=== PATIENT | female | born 1975 | race Caucasian/White ===

== ENCOUNTER 2024-12-02 06:16 | Inpatient (IN) | payer BC, OTHER ==
[2024-12-02] VITALS (62 sets, daily range): BP systolic 86–127; BP diastolic 37–72; PULSE 72–129; RESP 9–29; TEMP 97–98.2; O2SAT 92–100
[~2024-12-02] VITALS: Ht 172.7 cm; Wt 139.0 kg
[2024-12-02] MEDS: ROCURONIUM 10MG/ML 10ML VIAL IV ONE ×3 (06:25→13:30)
[2024-12-02] MEDS: ETOMIDATE (2MG/ML) 20ML VIAL IV ONE (06:25)
[2024-12-02] MEDS: MIDAZOLAM DRIP 50 mg/50mL 50 ML IV SCH (06:30)
[2024-12-02] MEDS: fentaNYL Drip 2500mCg/250mlNS 250 ML IV SCH (06:30)
[2024-12-02] MEDS: PROPOFOL 100 ML IV SCH (06:30)
--- NOTE | 2024-12-02 06:37 | ED.PDOC ---
SOB-HPI HPI Comments This is a 49 year old female BIBA presenting to the ED with chief complaint of SOB. EMS reports patient called 911 due to experiencing severe SOB this morning. EMS relays that the patient had an O2 saturation of 70% on RA, however, patient denied being put on CPAP due to feeling claustrophobic. Patient unable to answer questions at this time due to her SOB. No further history obtained. Chief Complaint: Shortness of Breath Time Seen by MD: 06:34 Reviewed notes: Nurses Notes, Cosmetics Supervisor Notes, Medications, Allergies Information Source: Emergency Med Personnel Mode of Arrival: EMS Severity: Severe Timing: Hours Duration: Since onset Context: At Rest PE Risk Factors: None History of: None Prehospital treatment: Oxygen Modifying Factors: Nothing Past Medical History PAST MEDICAL HISTORY: Denies Surgical History: Denies all surgeries BIOSTATISTICS MANAGER History: No Pertinent BIOSTATISTICS MANAGER History Family History Family History: Reviewed,noncontributory to illness Social History Smoker: Non-Smoker Alcohol: Denies ETOH Use Drugs: Denies Drug Use Lives In: Home Constitutional: denies: chills, diaphoresis, fatigue, fever, malaise, sweats, weakness, others EENTM: denies: blurred vision, double vision, ear bleeding, ear discharge, ear drainage, ear pain, ear ringing, eye pain, eye redness, hearing loss, mouth pain, mouth swelling, nasal discharge, nose bleeding, nose congestion, nose pain, photophobia, tearing, throat pain, throat swelling, voice changes, others Respiratory: reports: shortness of breath; denies: cough, hemoptysis, orthopnea, SOB at rest, SOB with excertion, stridor, wheezing, others Cardiovascular: denies: chest pain, dizzy spells, diaphoresis, Dyspnea on exertion, edema, irregular heart beat, left arm pain, lightheadedness, palpitations, PND, syncope, others Gastrointestinal: denies: abdomen distended, abdominal pain, blood streaked bowels, constipated, diarrhea, dysphagia, difficulty swallowing, hematemesis, melena, nausea, poor appetite, poor fluid intake, rectal bleeding, rectal pain, vomiting, others Genitourinary: denies: abnormal vagina bleeding, burning, dyspareunia, dysuria, flank pain, frequency, hematuria, incontinence, pain, , vagina discharge, urgency, others Neurological: denies: dizziness, fainting, headache, left sided numbness, left sided weakness, numbness, paresthesia, pre-existing deficit, right sided numbness, right sided weakness, seizure, speech problems, tingling, tremors, weakness, others Musculoskeletal: denies: back pain, gout, joint pain, joint swelling, muscle pain, muscle stiffness, neck pain, others Integumetry: denies: bruises, change in color, change in hair/nails, dryness, laceration, lesions, lumps, rash, wounds, others Allergic/Immunocompromised: denies: Difficulty Healing, Frequent Infections, Hives, Itching, others Hematologic/Lymphatic: denies: anemia, blood clots, easy bleeding, easy bruising, swollen glands, others Endocrine: denies: excessive hunger, excessive sweating, excessive thirst, excessive urination, flushing, intolerance to cold, intolerance to heat, unexplained weight gain, unexplained weight loss, others Psychiatric: denies: anxiety, bipolar disorder, depression, hopeless, panic disorder, schizophrenia, sleepless, suicidal, others All Other Systems: Reviewed and Negative Physical Exam General Appearance: No Apparent Distress, Obese HEENT: Normal ENT Inspection, Pharynx Normal, TMs Normal Neck: Full Range of Motion, Non-Tender, Normal, Normal Inspection Respiratory: Chest Non-Tender, Lungs Clear, No Accessory Muscle Use, Other (Tachypneic, gasping for air, no movement of air noted.) Cardiovascular: No Edema, No JVD, No Murmur, No Gallop, Normal Peripheral Pulses, Tachycardia Breast Exam: Deferred Gastrointestinal: No Organomegaly, Non Tender, No Pulsatile Mass, Normal Bowel Sounds, Soft Genitalia: Deferred Pelvic: Deferred Rectal: Deferred Extremities: No calf tenderness, Normal capillary refill, Normal inspection, Normal range of motion, Non-tender, No pedal edema Musculoskeletal : Apperance: Normal Neurologic: Alert, groundman II-XII nml as Tested, No Motor Deficits, Normal Affect, Normal Mood, No Sensory Deficits Cerebellar Function: Normal Reflexes: Normal Skin: Dry, Normal Color, Warm Lymphatic: No Adenopathy Was a procedure done? Was a procedure done?: Yes Sedation Sedation?: Yes Informed consent obtained: Yes Sedation start time: 06:25 Sedation end time: 06:30 Sedation total time: 5 minutes Central Line Recorder of insertion practice: Cork Wirer Occupation of stick inserter: Attending Physician Indication: CVP monitoring, Suspected infection Room prepared for procedure: Yes Cork Wirer performed hand hygien: Yes Maximal sterile barrier precau: Mask/Eye shield, Sterile gown, Cap, Sterlie gloves, Large sterlie drape Skin Preparation: Chlorhexidine gluconate Skin preparation completely dr: Yes Insertion site: Right, Femoral Central line catheter type: [id number] dialysis Number of lumens: 3 Central line exchanged over a: Yes Antiseptic ointment applied to: Yes Post Assessment: Chest X-Ray, Proper placement Informed consent obtained: Yes Risks/benefits/alt described: Yes Intubation Indication: Respiratory Insufficiency, Airway Protection Prep: Preoxygenation Pretreated with: Sedation Intubation Approach: Orotracheal (@24 lip line) Intubation size: cm (8) Informed consent obtained: Yes Risks/benefits/alt described: Yes Notes 20mg of Etomidate and 100mg of Rocuronium Differential Dx Differential Diagnosis: Pneumonia, Pulmonary Embolism X-Ray, Labs, Meds, VS Vital Signs Date Time Temp Pulse Resp B/P (MAP) Pulse Ox O2 Delivery O2 Flow Rate FiO2 12/02/24 10:00 93 24 117/63 (81) 98 12/02/24 10:00 117/63 12/02/24 10:00 117/63 12/02/24 10:00 117/63 12/02/24 10:00 117/63 12/02/24 09:43 94 24 105/61 (76) 96 50 12/02/24 09:30 97.9 101 20 104/54 (71) 98 97.9 12/02/24 09:20 95/51 12/02/24 09:00 102/51 12/02/24 09:00 102/51 12/02/24 09:00 102/51 12/02/24 09:00 102/51 12/02/24 09:00 106 20 102/51 (68) 97 12/02/24 08:34 115 24 90/54 (66) 98 50 12/02/24 08:32 115 12/02/24 08:30 115 20 102/48 (66) 98 12/02/24 08:00 124 12/02/24 08:00 162/77 12/02/24 08:00 162/77 12/02/24 08:00 162/77 12/02/24 08:00 124 20 162/77 (105) 99 12/02/24 07:45 129 20 98 Mechanical Ventilator+ 80 80 12/02/24 07:45 193/96 12/02/24 07:45 193/96 12/02/24 07:45 193/96 12/02/24 07:45 98.0 129 20 193/96 (128) 98 98.0 12/02/24 07:32 128 12/02/24 06:30 216/118 12/02/24 06:30 216/118 12/02/24 06:30 216/118 12/02/24 06:25 130 20 160/105 (123) 96 100 12/02/24 06:25 216/118 12/02/24 06:25 97.0 143 21 216/118 94 97.0 12/02/24 06:25 142 Lab Test 12/02/24 09:51 12/02/24 09:30 12/02/24 08:15 12/02/24 07:33 Range/Units Troponin I High Sensitivity 279 *H 39 *H </=34 ng/L Blood Gas Specimen Type Arterial Arterial Blood Gas Sample Site Right radial Right radial Blood Gas Patient Temperature 37.0 37.0 Arterial Blood Date Drawn [id number] Arterial Blood pH 7.262 L 7.188 *L 7.350-7.450 Arterial Blood Partial Pressure CO2 49.4 H 60.4 *H 32.0-45.0 mmHg Arterial Blood Partial Pressure O2 108.2 H 305.1 *H 83.0-108.0 mmHg Arterial Blood HCO3 21.8 22.4 21.0-28.0 mmol/L Arterial Blood Oxygen Saturation 97.7 99.6 H 94.0-98.0 % Arterial Blood Base Excess -5.6 L -6.8 L -2.0-3.0 mmol/L Arterial Blood Oxyhemoglobin 96.2 98.4 H 94.0-98.0 % Arterial Blood Carboxyhemoglobin 0.9 0.5 0.5-1.5 % Arterial Blood Methemoglobin 0.6 0.7 0.0-1.5 % Ranjith Test Modified Modified Blood Gas Total Hemoglobin 15.10 15.40 12.0-16.0 g/dL Blood Gas Set Respiration Rate 24.0 20.0 Blood Gas Modality Vent - ac Vent - ac FiO2 % 50.0 100.0 Blood Gas Tidal Volume 500.0 500.0 Blood Gas PEEP or CPAP 15.0 15.0 Blood Gas Critical Value Read Back Yes Blood Gas Notified Whom Julissa garcia md Blood Gas Notified Time [id number] Blood Gas Notified By lakeisha Massey welding machine operator gas Test 12/02/24 07:12 12/02/24 07:02 12/02/24 06:30 Range/Units Urine Color Light-yellow Yellow Urine Clarity Clear Clear Urine pH 5.0 5.0-9.0 Urine Specific [place] 1.015 1.001-1.035 Urine Protein Negative Negative Urine Ketones Negative Negative Urine Blood Negative Negative /uL Urine Nitrite Negative Negative Urine Bilirubin Negative Negative Urine Urobilinogen Normal Negative mg/dL Urine Leukocyte Esterase Negative Negative /uL Urine RBC 1 0 - 4 /hpf Urine Microscopic WBC 3 0-5 /HPF Urine Squamous Epithelial Cells Few <5 /hpf Urine Bacteria None seen None Seen /hpf Urine Mucus Few None Seen Urine Glucose Normal Normal mg/dL Urine Opiates Screen Pending Urine Fentanyl Screen Pending Urine Barbiturates Screen Pending Urine Phencyclidine Screen Pending Urine Amphetamines Screen Pending Urine Benzodiazepines Screen Pending Urine Cocaine Screen Pending Urine Cannabinoids Screen Pending White Blood Count 19.8 H 4.4-10.8 10^3/uL Red Blood Count 4.84 4.0-5.20 10^6/uL Hemoglobin 15.0 12.2-16.2 g/dL Hematocrit 44.8 36.0-46.0 % Mean Corpuscular Volume 92.6 80.0-100.0 fL Mean Corpuscular Hemoglobin 31.0 28.0-32.0 pg Mean Corpuscular Hemoglobin Concent 33.4 32.0-36.0 g/dL Red Cell Distribution Width 14.0 11.8-14.3 % Platelet Count 278 140-450 10^3/uL Mean Platelet Volume 7.5 6.9-10.8 fL Neutrophils (%) (Auto) 41.8 37.0-80.0 % Lymphocytes (%) (Auto) 42.6 10.0-50.0 % Monocytes (%) (Auto) 8.7 0.0-12.0 % Eosinophils (%) (Auto) 6.3 0.0-7.0 % Basophils (%) (Auto) 0.6 0.0-2.0 % Neutrophils # (Auto) 8.3 1.6-8.6 10 ^3/uL Lymphocytes # (Auto) 8.4 H 0.4-5.4 10 ^3/uL Monocytes # (Auto) 1.7 H 0-1.3 10 ^3/uL Eosinophils # (Auto) 1.3 H 0-0.8 10 ^3/uL Basophils # (Auto) 0.1 0-0.2 10 ^3/uL Nucleated Red Blood Cells 0.1 % Sodium Level 142 136-145 mmol/L Potassium Level 4.9 3.5-5.1 mmol/L Chloride Level 108 H 98-107 mmol/L Carbon Dioxide Level 23 20-31 mmol/L Anion Gap 11 5-15 Blood Urea Nitrogen 18 9-23 mg/dL Creatinine 1.16 H 0.550-1.02 mg/dL Glomerular Filtration Rate Calc 57 >90 mL/min BUN/Creatinine Ratio 15.5 10.0-20.0 Serum Glucose 126 H 74-106 mg/dL Lactic Acid Level 1.5 0.4-2.0 mmol/L Calcium Level 8.5 L 8.7-10.4 mg/dL Total Bilirubin 0.4 0.2-1.0 mg/dL Aspartate Amino Transferase (AST) 40 13-40 U/L Alanine Aminotransferase (ALT) 45 H 7-40 U/L Alkaline Phosphatase 108 46-116 U/L Troponin I High Sensitivity 5 </=34 ng/L B-Type Natriuretic Peptide 25.79 0-100 pg/mL Total Protein 6.8 5.7-8.2 g/dL Albumin 4.2 3.2-4.8 g/dL Microbiology Date/Time Source Procedure Growth Status 12/02/24 06:30 Blood Blood Culture - Preliminary Resulted 12/02/24 06:15 Blood Blood Culture - Preliminary Resulted Current Medications Medications (Trade) Dose Ordered Sig/Aren Route Start Time Stop Time Status Last Admin Rocuronium [place] 100 mg ONCE ONCE IV 12/02/24 06:45 12/02/24 06:46 DC 12/02/24 06:25 Etomidate 20 mg ONCE ONCE IV 12/02/24 06:45 12/02/24 06:46 DC 12/02/24 06:25 Propofol 100 ml @ 4.41 mls/hr [id number] IV 12/02/24 06:45 12/03/24 05:13 Midazolam HCl 50 ml @ 1 mls/hr Q24H IV 12/02/24 06:45 12/03/24 06:03 Fentanyl Citrate 250 ml @ 2.5 mls/hr Q24H IV 12/02/24 06:45 12/03/24 02:48 Norepinephrine Bitartrate 250 ml @ 3.75 mls/hr Q24H IV 12/02/24 06:45 12/02/24 09:00 Time of 1ST Reevaluation: 07:33 Reevaluation 1ST: Improved Patient Education/Counseling: Diagnosis, Treatment Family Education/Counseling: No Family Present SEPSIS Sepsis Screen Physician Orders Chest Portable (12/02/24 06:29) Blood Culture (12/02/24 06:29) Propofol (Diprivan) (12/02/24 06:45) Midazolam Drip 50 Mg/50ml (Versed Drip 5 (12/02/24 06:45) Fentanyl Drip 2500mcg/250mlns (12/02/24 06:45) Norepinephrine 8 Mg/250ml Kit (Levophed) (12/02/24 06:45) Ventilator Orders (12/02/24 06:25) Respiratory Culture W/ Gs (12/02/24 06:25) Abg W/ Co-Ox (12/02/24 07:30) Communication Order (12/02/24 06:50) Respiratory Misc. Order (12/02/24 06:30) Ventilator Orders (12/02/24 08:30) Abg W/ Co-Ox (12/02/24 09:30) Vital Signs Date Time Temp Pulse Resp B/P (MAP) Pulse Ox O2 Delivery O2 Flow Rate FiO2 12/02/24 10:00 93 24 117/63 (81) 98 12/02/24 10:00 117/63 12/02/24 10:00 117/63 12/02/24 10:00 117/63 12/02/24 10:00 117/63 12/02/24 09:43 94 24 105/61 (76) 96 50 12/02/24 09:30 97.9 101 20 104/54 (71) 98 97.9 12/02/24 09:20 95/51 12/02/24 09:00 102/51 12/02/24 09:00 102/51 12/02/24 09:00 102/51 12/02/24 09:00 102/51 12/02/24 09:00 106 20 102/51 (68) 97 12/02/24 08:34 115 24 90/54 (66) 98 50 12/02/24 08:32 115 12/02/24 08:30 115 20 102/48 (66) 98 12/02/24 08:00 124 12/02/24 08:00 162/77 12/02/24 08:00 162/77 12/02/24 08:00 162/77 12/02/24 08:00 124 20 162/77 (105) 99 12/02/24 07:45 129 20 98 Mechanical Ventilator+ 80 80 12/02/24 07:45 193/96 12/02/24 07:45 193/96 12/02/24 07:45 193/96 12/02/24 07:45 98.0 129 20 193/96 (128) 98 98.0 12/02/24 07:32 128 12/02/24 06:30 216/118 12/02/24 06:30 216/118 12/02/24 06:30 216/118 12/02/24 06:25 130 20 160/105 (123) 96 100 12/02/24 06:25 216/118 12/02/24 06:25 97.0 143 21 216/118 94 97.0 12/02/24 06:25 142 Laboratory Tests Test 12/02/24 06:30 Lactic Acid Level 1.5 mmol/L (0.4-2.0) White Blood Count 19.8 10^3/uL (4.4-10.8) H Departure 1 Departure Time of Disposition: 06:39 (Patient presented in acute respiratory distress. Patient was emergently intubated and central line placed. Patient will be admitted to the ICU.) Impression: Primary Impression: Acute hypoxic respiratory failure Disposition: ADMITTED INPATIENT Admit to: ICU Condition: Critical Critical Care Note Critical Care Time?: Yes Critical care comment: Acute respiratory failure Authorized and Performed by: Luther Garcia MD Total critical care time: Approximately 126 minutes Due to a high probability of clinically significant, life threatening deterioration, the patient required my highest level of preparedness to in [facility] emergently and I personally spent this critical care time directly and personally managing the patient. This critical care time included obtaining a history; examining the patient; pulse oximetry; ordering and review of studies; arranging urgent treatment with development of a management plan; evaluation of patient's response to treatment; frequent reassessment; and, discussions with other providers. This critical care time was performed to assess and manage the high probability of imminent, life-threatening deterioration that could result in multi-organ failure. It was exclusive of separately billable procedures and treating other patients and teaching time. Please see my other sections and the rest of the note for further information on patient assessment and treatment. Stability Stability form required: No Heart Score Heart Score: Heart Score Response (Comments) Value History N/A 0 EKG N/A 0 Age N/A 0 Risk Factors N/A 0 Troponin N/A 0 Total 0 I personally scribed for LUTHER GARCIA MD ([email or web address]) on 12/02/24 at 06:37. E lectronically submitted by Bong Deutsch ([email or web address]). LUTHER GARCIA MD Dec 02, 2024 06:37
[2024-12-02 06:45] LABS: Hematocrit 44.8 % (36.0-46.0); Hemoglobin 15.0 g/dL (12.2-16.2); Mean Corpuscular Hemoglobin 31.0 pg (28.0-32.0); Mean Corpuscular Volume 92.6 fL (80.0-100.0); Nucleated Red Blood Cells % 0.1 %
[2024-12-02] MEDS: PROPOFOL 100 ML IV ONE (06:55)
[2024-12-02] MEDS: MIDAZOLAM DRIP 50 mg/50mL 50 ML IV ONE (06:58)
[2024-12-02] MEDS: fentaNYL Drip 2500mCg/250mlNS 250 ML IV ONE (06:58)
[2024-12-02 07:14] LABS: Albumin 4.2 g/dL (3.2-4.8); Alkaline Phosphatase 108 U/L (46-116); Anion Gap 11 (5-15); BUN/Creatinine Ratio 15.5 (10.0-20.0); Blood Urea Nitrogen 18 mg/dL (9-23); Carbon Dioxide 23 mmol/L (20-31); Potassium 4.9 mmol/L (3.5-5.1); Sodium 142 mmol/L (136-145); Total Protein 6.8 g/dL (5.7-8.2)
[2024-12-02 07:15] LABS: Bilirubin, Total 0.4 mg/dL (0.2-1.0)
[2024-12-02 07:16] LABS: Alanine Aminotransferase 45 U/L (7-40); Calcium 8.5 mg/dL (8.7-10.4); Chloride 108 mmol/L (98-107); Glucose 126 mg/dL (74-106)
--- NOTE | 2024-12-02 07:42 | DVH ---
CHEST RADIOGRAPH Indication: weakness Technique: Single frontal view of the chest was obtained COMPARISON: XR CHEST 1 VIEW on DOS: 12/02/22, XR CHEST 1 VIEW on DOS: 09/26/22 FINDINGS: Lines and Tubes: Endotracheal tube in the right mainstem bronchus. Lungs: Right mid lung airspace disease. Pleura: No effusion. No pneumothorax. Cardiomediastinal contours: Unremarkable Bones: Unremarkable IMPRESSION: Recommend retraction of endotracheal tube by 3 cm.
--- NOTE | 2024-12-02 07:50 | ECG ---
[facility] Test Date: 2024-12-02 Test Time: 07:32:43 Pat Name: KARELY CONNOLLY Department: [facility] ED Patient ID: [id number] Room: 0264 Gender: F Organizational Development Director: LORI : 1975 Requested By: LUTHER NOLEN Order Number: [id number] Reading MD: Varghese Roberts Measurements Intervals [place] Rate: 128 P: 78 VT: 143 QRS: 32 QRSD: 86 T: 85 QT: 296 QTc: 432 Interpretive Statements Sinus tachycardia Ventricular premature complex Anteroseptal infarct, old Baseline wander in lead(s) V4 Electronically Signed On 12-03-2024 17:02:29 PDT by Varghese Roberts Please click the below link to view image of tracing.
[2024-12-02 08:30] LABS: Base Excess -6.8 mmol/L (-2.0-3.0)
[2024-12-02] MEDS: NOREPINEPHRINE 8 MG/250ML KIT 250 ML IV SCH (09:00)
[2024-12-02 09:10] LABS: Urine Protein, UAD Negative (Negative)
[2024-12-02 09:42] LABS: Base Excess -5.6 mmol/L (-2.0-3.0)
[2024-12-02] MEDS ORDERED: NITROGLYCERIN 0.4 MG SL TAB SL PRN (10:15)
[2024-12-02] MEDS ORDERED: HYDROcodone-ACET 5/325MG TAB PO PRN (10:15)
[2024-12-02] MEDS ORDERED: DOCUSATE SOD 100 MG CAP PO PRN (10:15)
[2024-12-02] MEDS ORDERED: MORPHINE SULFATE INJ 2 MG/ml SYRG IV PRN (10:15)
--- NOTE | 2024-12-02 10:32 | DVHHP2 ---
History of Present Illness Reason for Visit: Shortness of breath History of Present Illness Laure Glover is a 49-year-old female with past medical history of asthma and obesity, who was brought in by EMS for shortness of breath. When patient arrived to ER she was in respiratory distress. Not able to answer questions, and was int ubated shortly after arrival. A person claiming to be her daughter called and spoke with the ER nurse prior to my assessment. She was asked to come to the hospital. Pulmonary: Asthma Review of Systems Review of Systems Unable to obtain Respiratory: Shortness of breath Allergies: Coded Allergies: UNOBTAINABLE (Unverified , 12/02/24) Medications Current Medications Medications Dose Ordered Sig/Aren Route Start Time Stop Time Status Last Admin Dose Admin Propofol 100 ml @ 4.41 mls/hr [id number] IV 12/02/24 06:45 12/02/24 06:30 17.64 MLS/HR Midazolam HCl 50 ml @ 1 mls/hr Q24H IV 12/02/24 06:45 12/02/24 06:30 2 MLS/HR Fentanyl Citrate 250 ml @ 2.5 mls/hr Q24H IV 12/02/24 06:45 12/02/24 06:30 2.5 MLS/HR Norepinephrine Bitartrate 250 ml @ 3.75 mls/hr Q24H IV 12/02/24 06:45 Sodium Chloride 1,000 ml @ 100 mls/hr Q10H IV 12/02/24 10:15 UNV Acetaminophen/ Hydrocodone Bitart 1 tab Q4HP PRN PO 12/02/24 10:15 UNV Ondansetron HCl 4 mg Q4HP PRN IV 12/02/24 10:15 UNV Docusate Sodium 100 mg BIDPRN PRN PO 12/02/24 10:15 UNV Enoxaparin Sodium 40 mg DAILY SC 12/03/24 10:00 UNV Acetaminophen 650 mg Q6HP PRN PO 12/02/24 10:15 UNV Nitroglycerin 0.4 mg Q5MINP PRN SL 12/02/24 10:15 UNV Morphine Sulfate 2 mg Q30M PRN IV 12/02/24 10:15 UNV Albuterol 2.5 mg Q6HWA NEB 12/02/24 12:00 UNV Ipratropium [place] 0.5 mg Q6HWA NEB 12/02/24 12:00 UNV Methylprednisolone Sodium Succinate 40 mg BID IV 12/02/24 22:00 UNV Exam Vital Signs Vital Signs Date Time Temp Pulse Resp B/P (MAP) Pulse Ox O2 Delivery O2 Flow Rate FiO2 12/02/24 09:43 94 24 105/61 (76) 96 50 12/02/24 06:25 97.0 97.0 General Appearance: Other (sedated, morbid obesity) HEENT: Atraumatic, PERRLA Respiratory: Other (Intubated, Diminished) Cardiovascular: Normal S1, Normal S2, Other (ST-SR) Abdominal: Normal bowel sounds, Soft, No tenderness Extremities: No clubbing, No cyanosis, No edema, Normal pulses Skin: No rashes, No breakdown, No significant lesion Neuro: Other (sedated and intubated) Labs/Xrays Labs Test 12/02/24 09:30 12/02/24 08:15 12/02/24 07:33 12/02/24 07:12 Range/Units Blood Gas Specimen Type Arterial Blood Gas Sample Site Right radial Blood Gas Patient Temperature 37.0 Arterial Blood Date Drawn [id number] Arterial Blood pH 7.262 L 7.350-7.450 Arterial Blood Partial Pressure CO2 49.4 H 32.0-45.0 mmHg Arterial Blood Partial Pressure O2 108.2 H 83.0-108.0 mmHg Arterial Blood HCO3 21.8 21.0-28.0 mmol/L Arterial Blood Oxygen Saturation 97.7 94.0-98.0 % Arterial Blood Base Excess -5.6 L -2.0-3.0 mmol/L Arterial Blood Oxyhemoglobin 96.2 94.0-98.0 % Arterial Blood Carboxyhemoglobin 0.9 0.5-1.5 % Arterial Blood Methemoglobin 0.6 0.0-1.5 % Ranjith Test Modified Blood Gas Total Hemoglobin 15.10 12.0-16.0 g/dL Blood Gas Set Respiration Rate 24.0 Blood Gas Modality Vent - ac FiO2 % 50.0 Blood Gas Tidal Volume 500.0 Blood Gas PEEP or CPAP 15.0 Blood Gas Critical Value Read Back Yes Blood Gas Notified Whom Julissa garcia md Blood Gas Notified Time [id number] Blood Gas Notified By Massey, j cook dinner Troponin I High Sensitivity 39 *H </=34 ng/L Urine Color Light-yellow Yellow Urine Clarity Clear Clear Urine pH 5.0 5.0-9.0 Urine Specific [place] 1.015 1.001-1.035 Urine Protein Negative Negative Urine Ketones Negative Negative Urine Blood Negative Negative /uL Urine Nitrite Negative Negative Urine Bilirubin Negative Negative Urine Urobilinogen Normal Negative mg/dL Urine Leukocyte Esterase Negative Negative /uL Urine RBC 1 0 - 4 /hpf Urine Microscopic WBC 3 0-5 /HPF Urine Squamous Epithelial Cells Few <5 /hpf Urine Bacteria None seen None Seen /hpf Urine Mucus Few None Seen Urine Glucose Normal Normal mg/dL Test 12/02/24 06:30 Range/Units White Blood Count 19.8 H 4.4-10.8 10^3/uL Red Blood Count 4.84 4.0-5.20 10^6/uL Hemoglobin 15.0 12.2-16.2 g/dL Hematocrit 44.8 36.0-46.0 % Mean Corpuscular Volume 92.6 80.0-100.0 fL Mean Corpuscular Hemoglobin 31.0 28.0-32.0 pg Mean Corpuscular Hemoglobin Concent 33.4 32.0-36.0 g/dL Red Cell Distribution Width 14.0 11.8-14.3 % Platelet Count 278 140-450 10^3/uL Mean Platelet Volume 7.5 6.9-10.8 fL Neutrophils (%) (Auto) 41.8 37.0-80.0 % Lymphocytes (%) (Auto) 42.6 10.0-50.0 % Monocytes (%) (Auto) 8.7 0.0-12.0 % Eosinophils (%) (Auto) 6.3 0.0-7.0 % Basophils (%) (Auto) 0.6 0.0-2.0 % Neutrophils # (Auto) 8.3 1.6-8.6 10 ^3/uL Lymphocytes # (Auto) 8.4 H 0.4-5.4 10 ^3/uL Monocytes # (Auto) 1.7 H 0-1.3 10 ^3/uL Eosinophils # (Auto) 1.3 H 0-0.8 10 ^3/uL Basophils # (Auto) 0.1 0-0.2 10 ^3/uL Nucleated Red Blood Cells 0.1 % Sodium Level 142 136-145 mmol/L Potassium Level 4.9 3.5-5.1 mmol/L Chloride Level 108 H 98-107 mmol/L Carbon Dioxide Level 23 20-31 mmol/L Anion Gap 11 5-15 Blood Urea Nitrogen 18 9-23 mg/dL Creatinine 1.16 H 0.550-1.02 mg/dL Glomerular Filtration Rate Calc 57 >90 mL/min BUN/Creatinine Ratio 15.5 10.0-20.0 Serum Glucose 126 H 74-106 mg/dL Lactic Acid Level 1.5 0.4-2.0 mmol/L Calcium Level 8.5 L 8.7-10.4 mg/dL Total Bilirubin 0.4 0.2-1.0 mg/dL Aspartate Amino Transferase (AST) 40 13-40 U/L Alanine Aminotransferase (ALT) 45 H 7-40 U/L Alkaline Phosphatase 108 46-116 U/L B-Type Natriuretic Peptide 25.79 0-100 pg/mL Total Protein 6.8 5.7-8.2 g/dL Albumin 4.2 3.2-4.8 g/dL CHEST RADIOGRAPH FINDINGS: Lines and Tubes: Endotracheal tube in the right mainstem bronchus. Lungs: Right mid lung airspace disease. Pleura: No effusion. No pneumothorax. Cardiomediastinal contours: Unremarkable Bones: Unremarkable IMPRESSION: Recommend retraction of endotracheal tube by 3 cm. SEPSIS Sepsis Screen Date sepsis recognized/suspect: Dec 02, 2024 Time Sepsis recognized/suspect: 633 Recent Procedure: No On Antibiotic Therapy: No Respiratory Rate >20: Yes Heart Rate >90: Yes Temp<36 C (96.8 F) or >38.3 C: No SBP <90 or MAP <65 mmHG: No New Acute Mental Status Change: No Is the patient on CPAP, BIPAP,: Yes Physician Orders Chest Portable (12/02/24 06:29) Blood Culture (12/02/24 06:29) Troponin-I Hs (12/02/24 09:29) Electrocardigram (12/02/24 07:29) Electrocardigram (12/02/24 09:29) Propofol (Diprivan) (12/02/24 06:45) Midazolam Drip 50 Mg/50ml (Versed Drip 5 (12/02/24 06:45) Fentanyl Drip 2500mcg/250mlns (12/02/24 06:45) Rass Sedation Scale Q1HR (12/02/24 06:38) Norepinephrine 8 Mg/250ml Kit (Levophed) (12/02/24 06:45) Ventilator Orders (12/02/24 06:25) Respiratory Culture W/ Gs (12/02/24 06:25) Abg W/ Co-Ox (12/02/24 07:30) Communication Order (12/02/24 06:50) Respiratory Misc. Order (12/02/24 06:30) Cefepime 2gm/50ml Ns (Maxipime 2gm/50ml) (12/02/24 07:15) Ventilator Orders (12/02/24 08:30) Abg W/ Co-Ox (12/02/24 09:30) Admit (12/02/24 10:06) Code Status (12/02/24 10:06) Sodium Chloride 0.9% (12/02/24 10:15) Hydrocodone-Acet 5/325mg Tab ([place] 5/32 (12/02/24 10:15) Ondansetron Hcl (Zofran) (12/02/24 10:15) Docusate Sodium Capsule (Colace Capsule) (12/02/24 10:15) Enoxaparin Sodium (Lovenox) (12/03/24 10:00) Complete Blood Count (12/03/24 04:00) Comprehensive Metabolic Panel (12/03/24 04:00) Npo (Nothing By Mouth) Diet (12/02/24 Lunch) Condition: Critical (12/02/24 10:06) Acetaminophen Tablet (Tylenol Tablet) (12/02/24 10:15) Nitroglycerin Sublingual (Ntrostat Subli (12/02/24 10:15) Morphine Sulfate Injection (12/02/24 10:15) Stat Ekg For Chest Pain (12/02/24 10:06) Notify Md Of Changes From Base (12/02/24 10:06) Steam Turbine Operator For 24 Hours (12/02/24 10:06) Emergency Dysrhythmia Protocol (12/02/24 10:06) Rhythm Strips Once Every Shift (12/02/24 10:06) Oxygen By Nasal Cannula (12/02/24 10:06) Albuterol Medneb (Ventolin Medneb) (12/02/24 12:00) Ipratropium Medneb (Atrovent Medneb) (12/02/24 12:00) Methylprednisolone Sod Succ (Solu Medrol (12/02/24 22:00) Vital Signs Date Time Temp Pulse Resp B/P (MAP) Pulse Ox O2 Delivery O2 Flow Rate FiO2 12/02/24 09:43 94 24 105/61 (76) 96 50 12/02/24 08:34 115 24 90/54 (66) 98 50 12/02/24 08:32 115 12/02/24 08:00 124 12/02/24 07:32 128 12/02/24 06:30 216/118 12/02/24 06:30 216/118 12/02/24 06:30 216/118 12/02/24 06:25 130 20 160/105 (123) 96 100 12/02/24 06:25 216/118 12/02/24 06:25 97.0 143 21 216/118 94 97.0 12/02/24 06:25 142 Laboratory Tests Test 12/02/24 06:30 Lactic Acid Level 1.5 mmol/L (0.4-2.0) White Blood Count 19.8 10^3/uL (4.4-10.8) H Medications Medications Dose Ordered Sig/Aren Route Start Time Stop Time Status Last Admin Dose Admin Etomidate 20 mg ONCE ONCE IV 12/02/24 06:45 12/02/24 06:46 DC 12/02/24 06:25 20 MG Fentanyl Citrate 250 ml @ 2.5 mls/hr Q24H IV 12/02/24 06:45 12/02/24 06:30 2.5 MLS/HR Midazolam HCl 50 ml @ 1 mls/hr Q24H IV 12/02/24 06:45 12/02/24 06:30 2 MLS/HR Propofol 100 ml @ 4.41 mls/hr [id number] IV 12/02/24 06:45 12/02/24 06:30 17.64 MLS/HR Rocuronium [place] 100 mg ONCE ONCE IV 12/02/24 06:45 12/02/24 06:46 DC 12/02/24 06:25 100 MG Assessment/Plan Assessment/Plan Assessment: Acute hypoxic respiratory failure, Lactic acidosis, Hyperglycemia, Morbid obesity, Asthma, Plan: Admit to ICU, IV antibiotics, IV steroids, Breathing treatments, Supplemental oxygen as needed, Mechanical ventilation support, NPO, A1c, UDS, Vasopressors as needed, There are no home medications in the system and no family to verify with, Plan discussed with: Patient My Orders Orders - CHRISTIANA DAWKINS W[employer]SEMBL[employer] Procedure Category Date Status Time Admit ADMIT 12/02/24 Transmitted 10:06 Code Status CODE 12/02/24 Transmitted 10:06 Sodium Chloride 0.9% PHA 12/02/24 Logged 10:15 Hydrocodone-Acet PHA 12/02/24 Logged 5/325mg Tab ([place] 10:15 Ondansetron Hcl PHA 12/02/24 Logged (Zofran) 10:15 Docusate Sodium PHA 12/02/24 Logged Capsule (Colace 10:15 Enoxaparin Sodium PHA 12/03/24 Logged (Lovenox) 10:00 Complete Blood Count LAB 12/03/24 Verified 04:00 Comprehensive LAB 12/03/24 Verified Metabolic Panel 04:00 Npo (Nothing By DIET 12/02/24 Transmitted Mouth) Diet Lunch Condition: Critical ZANDER 12/02/24 In Process 10:06 Acetaminophen Tablet PHA 12/02/24 Logged (Tylenol Tablet) 10:15 Nitroglycerin PHA 12/02/24 Logged Sublingual (Ntrostat 10:15 Morphine Sulfate PHA 12/02/24 Logged Injection 10:15 Stat Ekg For Chest [facility] 12/02/24 In Process Pain 10:06 Notify Of Changes [facility] 12/02/24 In Process From Base 10:06 Steam Turbine Operator For [facility] 12/02/24 In Process 24 Hours 10:06 Emergency Dysrhythmia [facility] 12/02/24 In Process Protocol 10:06 Rhythm Strips Once [facility] 12/02/24 In Process Every Shift 10:06 Oxygen By Nasal RT 12/02/24 Transmitted Cannula 10:06 Albuterol Medneb PHA 12/02/24 Logged (Ventolin Medneb) 12:00 Ipratropium Medneb PHA 12/02/24 Logged (Atrovent Medneb) 12:00 Methylprednisolone PHA 12/02/24 Logged Sod Succ (Solu Medrol 22:00 Date of Service: Dec 02, 2024 Billing Provider: CHRISTIANA DAWKINS Common Visit Codes: [id number] INP/OBS CARE (MOD) CHRISTIANA DAWKINS Dec 02, 2024 10:32
--- NOTE | 2024-12-02 10:52 | ECG ---
[facility] Test Date: 2024-12-02 Test Time: 10:51:33 Pat Name: KARELY CONNOLLY Department: [facility] ED Patient ID: [facility]-[id number] Room: 0264 Gender: F Esthetician Facialist: brandon : 1975 Requested By: LUTHER NOLEN Order Number: [id number] Reading MD: Varghese Roberts Measurements Intervals [place] Rate: 93 P: 81 ME: 143 QRS: 70 QRSD: 94 T: 74 QT: 344 QTc: 428 Interpretive Statements Sinus rhythm Electronically Signed On 12-03-2024 17:02:46 PDT by Varghese Roberts Please click the below link to view image of tracing.
[2024-12-02] MEDS ORDERED: AZITHROMYCIN 500MG/ 250ML 250 ML IV SCH (11:30)
[2024-12-02] MEDS: ALBUTEROL SULF 2.5 MG/0.5ML(0.5%) NEB SOLN NEB SCH (12:57)
[2024-12-02] MEDS: IPRATROPIUM BROM 0.5 MG/2.5ML INH SOL NEB SCH (12:57)
[2024-12-02] MEDS: ROCURONIUM BROMIDE 1,000 MG in D5W 5% 150 ML IV SCH (13:13)
[2024-12-02 14:25] LABS: Base Excess -6.6 mmol/L (-2.0-3.0)
[2024-12-02] MEDS ORDERED: VANCOMYCIN PER PHARMACY 0 MG IV SCH (15:00)
[2024-12-02] MEDS: SODIUM CHLORIDE 0.9% 1,000 ML IV SCH (15:40)
[2024-12-02] MEDS: AZITHROMYCIN 500MG/ 250ML 250 ML IV ONE (15:40)
[2024-12-02] MEDS: VANCOMYCIN 1GM/250ML KIT 250 ML IV ONE (18:50)
[2024-12-02] MEDS: VANCOMYCIN 1GM/250ML KIT 250 ML IV SCH (18:54)
--- NOTE | 2024-12-02 19:37 | ECG ---
[facility] Test Date: 2024-12-02 Test Time: 08:32:27 Pat Name: KARELY CONNOLLY Department: [facility] ED Patient ID: [facility]-[id number] Room: 0264 A Gender: F Track Patrol: LORI : 1975 Requested By: LUTHER NOLEN Order Number: [id number] Reading MD: Varghese Roberts Measurements Intervals [place] Rate: 115 P: 81 WV: 140 QRS: 53 QRSD: 96 T: 75 QT: 319 QTc: 442 Interpretive Statements Sinus tachycardia Low voltage, precordial leads Electronically Signed On 12-03-2024 17:02:31 PDT by Varghese Roberts Please click the below link to view image of tracing.
[2024-12-02] MEDS: methylPREDNISolone SOD SUCC 40 MG/ML VL IV SCH (21:20)
[2024-12-03] VITALS (123 sets, daily range): BP systolic 86–148; BP diastolic 25–75; PULSE 63–100; RESP 21–24; TEMP 97.7–97.8; O2SAT 86–100
[2024-12-03 05:53] LABS: Hematocrit 38.7 % (36.0-46.0); Hemoglobin 13.1 g/dL (12.2-16.2); Mean Corpuscular Hemoglobin 31.6 pg (28.0-32.0); Mean Corpuscular Volume 93.1 fL (80.0-100.0); Nucleated Red Blood Cells % 0.0 %
[2024-12-03] MEDS: AZITHROMYCIN 500MG/ 250ML 250 ML IV ONE (05:53)
[2024-12-03] MEDS: VANCOMYCIN 1GM/250ML KIT 250 ML IV SCH (05:53)
--- NOTE | 2024-12-03 05:57 | DVH ---
CHEST RADIOGRAPH Indication: MECHANICAL VENTILATION Technique: Single frontal view of the chest was obtained COMPARISON: XY CHEST PORTABLE on DOS: 12/02/24, XR CHEST 1 VIEW on DOS: 12/02/22, XR CHEST 1 VIEW on DOS: 09/26/22 FINDINGS: Lines and Tubes: Endotracheal tube and enteric catheter in satisfactory position Lungs: Congestion Pleura: No effusion. No pneumothorax. Cardiomediastinal contours: Unremarkable Bones: Unremarkable IMPRESSION: Lines and tubes in satisfactory position.
[2024-12-03 05:58] LABS: Albumin 3.7 g/dL (3.2-4.8); Alkaline Phosphatase 69 U/L (46-116); Anion Gap 10 (5-15); BUN/Creatinine Ratio 16.5 (10.0-20.0); Bilirubin, Total 0.3 mg/dL (0.2-1.0); Blood Urea Nitrogen 19 mg/dL (9-23); Carbon Dioxide 21 mmol/L (20-31); Magnesium 2.5 mg/dL (1.6-2.6); Potassium 4.6 mmol/L (3.5-5.1); Sodium 141 mmol/L (136-145); Total Protein 5.7 g/dL (5.7-8.2)
[2024-12-03 06:08] LABS: Alanine Aminotransferase 55 U/L (7-40); Calcium 8.5 mg/dL (8.7-10.4); Chloride 110 mmol/L (98-107); Glucose 154 mg/dL (74-106)
[2024-12-03] MEDS: VANCOMYCIN 1.25GM/250ML 250 ML IV SCH (06:32)
[2024-12-03] MEDS: VANCOMYCIN 1GM/250ML KIT 500 ML IV ONE (06:43)
[2024-12-03 06:53] LABS: Base Excess -4.9 mmol/L (-2.0-3.0)
[2024-12-03] MEDS: AZITHROMYCIN 500MG/ 250ML 250 ML IV SCH (08:52)
[2024-12-03] MEDS: ENOXAPARIN SOD 40 MG/0.4 ML SYRINGE SC SCH (08:53)
[2024-12-03] MEDS: SODIUM CHLORIDE 0.9% 1,000 ML IV SCH (11:45)
--- NOTE | 2024-12-03 11:50 | DVHPN2 ---
Subjective Chemically sedated Reviewed: Care Plan, H&P, Labs, Medications Changes from previous H/P or p: No Changes General: Per HPI Respiratory: Shortness of breath Objective Vitals Vital Signs Date Time Temp Pulse Resp B/P (MAP) Pulse Ox O2 Delivery O2 Flow Rate FiO2 12/03/24 11:00 121/69 12/03/24 10:21 100 Mechanical Ventilator+ 30 30 12/03/24 10:20 64 12/03/24 10:20 24 12/03/24 04:01 97.7 97.7 Intake/Output Intake and Output 12/03/24 07:00 Intake Total 4170.426 ml Output Total 2750 ml Balance 1420.426 ml Intake Oral 0 ml IV Total 4170.426 ml Output Urine Total 2750 ml # Bowel Movements 4 General Appearance: mild distress, Other (Chemically sedated) HEENT: Atraumatic, PERRLA Lungs: Clear to auscultation, Normal air movement, Other (Mechanical ventilation) Cardiovascular: Normal S1, Normal S2 Abdomen: Normal bowel sounds, Soft, No tenderness Genitourinary: No Apparent Abnormalities Musculoskeletal: Normal sensory function, Normal motor function Extremities: No clubbing, No cyanosis Skin: Dry, Intact Psych/Mental Status: Other (Unable to assess) Medications Current Medications Medications Dose Ordered Sig/Aren Route Start Time Stop Time Status Last Admin Dose Admin Propofol 100 ml @ 4.41 mls/hr [id number] IV 12/02/24 06:45 12/03/24 07:26 44.1 MLS/HR Midazolam HCl 50 ml @ 1 mls/hr Q24H IV 12/02/24 06:45 12/03/24 08:53 14 MLS/HR Fentanyl Citrate 250 ml @ 2.5 mls/hr Q24H IV 12/02/24 06:45 12/03/24 09:17 32.5 MLS/HR Norepinephrine Bitartrate 250 ml @ 3.75 mls/hr Q24H IV 12/02/24 06:45 12/02/24 09:00 3.75 MLS/HR Sodium Chloride 1,000 ml @ 100 mls/hr Q10H IV 12/02/24 10:15 12/03/24 04:21 100 MLS/HR Acetaminophen/ Hydrocodone Bitart 1 tab Q4HP PRN PO 12/02/24 10:15 Ondansetron HCl 4 mg Q4HP PRN IV 12/02/24 10:15 Docusate Sodium 100 mg BIDPRN PRN PO 12/02/24 10:15 Enoxaparin Sodium 40 mg DAILY SC 12/03/24 10:00 12/03/24 08:53 40 MG Acetaminophen 650 mg Q6HP PRN PO 12/02/24 10:15 Nitroglycerin 0.4 mg Q5MINP PRN SL 12/02/24 10:15 Morphine Sulfate 2 mg Q30M PRN IV 12/02/24 10:15 Albuterol 2.5 mg Q6HWA [facility] 12/02/24 12:00 12/03/24 05:50 2.5 MG Ipratropium [place] 0.5 mg Q6HWA [facility] 12/02/24 12:00 12/03/24 05:50 0.5 MG Methylprednisolone Sodium Succinate 40 mg BID IV 12/02/24 22:00 12/03/24 08:52 40 MG Rocuronium [place] 1000 mg/ Dextrose 250 ml @ 17.64 mls/ hr [id number] IV 12/02/24 12:45 12/02/24 13:13 17.64 MLS/HR Azithromycin 250 ml @ 125 mls/hr DAILY IV 12/03/24 10:00 12/03/24 08:52 125 MLS/HR Ceftriaxone Sodium 50 ml @ 100 mls/hr DAILY@09 IV 12/03/24 09:00 12/03/24 08:51 100 MLS/HR Vancomycin HCl 0 ml @ 0 mls/hr UD IV 12/02/24 15:00 Vancomycin HCl 250 ml @ 200 mls/hr Q12H IV 12/03/24 07:00 12/03/24 06:32 200 MLS/HR Laboratory Results Laboratory Tests 12/03/24 04:40 Chemistry Test 12/03/24 04:40 Albumin 3.7 g/dL (3.2-4.8) Calcium Level 8.5 mg/dL (8.7-10.4) L Magnesium Level 2.5 mg/dL (1.6-2.6) Total Protein 5.7 g/dL (5.7-8.2) LFT Test 12/03/24 04:40 Alanine Aminotransferase (ALT) 55 U/L (7-40) H Alkaline Phosphatase 69 U/L (46-116) Aspartate Amino Transferase (AST) 61 U/L (13-40) H Total Bilirubin 0.3 mg/dL (0.2-1.0) Urinalysis Test 12/02/24 07:12 Urine Color Light-yellow (Yellow) Urine Clarity Clear (Clear) Urine pH 5.0 (5.0-9.0) Urine Specific [place] 1.015 (1.001-1.035) Urine Protein Negative (Negative) Urine Ketones Negative (Negative) Urine Blood Negative /uL (Negative) Urine Nitrite Negative (Negative) Urine Bilirubin Negative (Negative) Urine Urobilinogen Normal mg/dL (Negative) Urine Leukocyte Esterase Negative /uL (Negative) Urine RBC 1 /hpf (0 - 4) Urine Microscopic WBC 3 /HPF (0-5) Urine Squamous Epithelial Cells Few /hpf (<5) Urine Bacteria None seen /hpf (None Seen) Urine Mucus Few (None Seen) Urine Glucose Normal mg/dL (Normal) Blood Gas Results Test 12/02/24 14:09 12/03/24 06:29 Arterial Blood pH 7.264 (7.350-7.450) 7.341 (7.350-7.450) FiO2 % 30.0 30.0 Microbiology Microbiology Date/Time Source Procedure Growth Status 12/02/24 06:30 Blood Blood Culture - Preliminary Resulted 12/02/24 06:25 Sputum Gram Stain Pending Resulted 12/02/24 06:25 Sputum Respiratory Culture - Preliminary Resulted Labs and/or images reviewed: Labs reviewed by me, Image(s) reviewed by me Assessment/Plan Assessment/Plan Impression: -acute hypoxic respiratory failure -asthma exacerbation -morbid obesity -NSTEMI, probably type 2 -Leukocytosis, probable sirs Course of hospitalization: Vent settings: A.c. decrease rate to 22, tidal volume 500, decrease PEEP to eight, FiO2 30% -continue current sedation, titrate off if possible. Stop paralytics given improvement with respiratory status -continue empiric antibiotic therapy -PUD, DVT prophylaxis -echocardiogram -repeat labs, chest x-ray, ABG in a.m. Critical care time spent with patient discussing and formulating plan of care: 40 minutes. This does not include time spent performing procedures. This medical document was created using an electronic medical record system with [employer] system. Although this document has been carefully reviewed, there may still be some phonetic and typographical errors. These areas are purely typographical due to imperfections of the software programs, and do not reflect any compromise in the patient's medical care. Plan discussed with: Patient, Daughter, Other (RN) My Orders Orders - SHANICE DELEON NP Procedure Category Date Status Time 0.9% Ns 1000 Ml PHA 12/03/24 Verified 11:45 Echo 2d Mode Cardiac US 12/03/24 Verified DOP 11:35 Ventilator Orders RT 12/03/24 Verified 11:35 Troponin-I Hs LAB 12/03/24 Verified 11:35 Basic Metabolic Panel LAB 12/04/24 Verified 05:00 Basic Metabolic Panel LAB 12/05/24 Verified 05:00 Basic Metabolic Panel LAB 12/06/24 Verified 05:00 Complete Blood Count LAB 12/04/24 Verified 05:00 Complete Blood Count LAB 12/05/24 Verified 05:00 Complete Blood Count LAB 12/06/24 Verified 05:00 Chest Portable XY 12/04/24 Verified 04:00 Abg W/ Co-Ox RT 12/04/24 Verified 04:[address] 12/03/24 Verified 11:35 Beta Hcg, Quantitative LAB 12/03/24 Verified 11:35 Date of Service: Dec 03, 2024 Billing Provider: SHANICE DELEON NP Common Visit Codes: [id number] CARE 30-74 MIN SHANICE DELEON NP Dec 03, 2024 11:50
[2024-12-03 12:56] LABS: Amphetamine Screen, Urine Neg (NEGATIVE); Barbiturate Scree,Urine Neg (NEGATIVE); Benzodiazephine Screen, Urine Pos (NEGATIVE); Cannabinoid Screen, Urine Neg (NEGATIVE); Cocaine Screen, Urine Neg (NEGATIVE); Opiate Scree,Urine Neg (NEGATIVE); Phencyclidine Screen, Urine Neg (NEGATIVE)
[2024-12-03 14:44] LABS: COVID19 ANTIGEN SOFIA FIA NEGATIVE (NEGATIVE)
--- NOTE | 2024-12-03 14:48 | DVHSR ---
APPROVED REPORT EXAM: Two-dimensional and M-mode echocardiogram with Doppler and color Doppler. Blood Pressure: 121/69 mmHg INDICATION NSTEMI RISK FACTORS Obesity: Height: 5'8", Weight: 312 DIMENSIONS LVDd4.6 (3.8-5.7cm)LA (2D)4.1 (1.9-4.0cm)Aortic Root3.2 (2.0-3.7cm) LVDs3.2 (2.5-4.0cm)LA (MM) (1.9-4.0cm)Aortic Cusp Exc1.8 (1.5-2.0cm) EF (%) 57.0 (55-70%)Rt. Atrium3.9 (1.9-4.0cm)Asc. Aorta2.7 cm IVSd1.1 (0.7-1.1cm)RV (D)3.1 (1.8-2.4cm) PWd1.0 (0.7-1.1cm) Mitral Valve MitralMitral Stenosis E wave0.87m/sMV Mean GR.mmHg A wave0.66m/sMV Peak GR.mmHg E/A ratio1.32D MVAcm2 DECEL [id number] 1/2 Tim[place] Aortic Valve Aortic ValveAortic Stenosis V11.25m/Diane Mean GR.4mmHg V21.42m/Diane Peak GR.8mmHg LVOT Diameter2.0 (1.8-2.4cm)Doppler AVA2.76cm2 Pulmonic Valve V21.05m/s Other Information Quality : Technically LimitedRhythm : Technically limited study due to body habitus and on vent. Conclusion lvef 60% normal rv function normal atria no severe valve abnormalities noted
[2024-12-04] VITALS (114 sets, daily range): BP systolic 99–142; BP diastolic 24–78; PULSE 72–104; RESP 12–24; TEMP 97.9–98.8; O2SAT 96–100
[2024-12-04] MEDS: CEFEPIME 2GM/50ML NS 50 ML IV ONE (05:49)
[2024-12-04 05:57] LABS: Hematocrit 40.8 % (36.0-46.0); Hemoglobin 13.8 g/dL (12.2-16.2); Mean Corpuscular Hemoglobin 31.6 pg (28.0-32.0); Mean Corpuscular Volume 93.7 fL (80.0-100.0); Nucleated Red Blood Cells % 0.0 %
[2024-12-04 06:06] LABS: Anion Gap 10 (5-15); Carbon Dioxide 22 mmol/L (20-31); Sodium 142 mmol/L (136-145)
[2024-12-04 06:12] LABS: BUN/Creatinine Ratio 20.4 (10.0-20.0); Blood Urea Nitrogen 22 mg/dL (9-23)
[2024-12-04 06:23] LABS: Calcium 8.5 mg/dL (8.7-10.4); Chloride 110 mmol/L (98-107); Glucose 121 mg/dL (74-106); Potassium 5.2 mmol/L (3.5-5.1)
--- NOTE | 2024-12-04 07:46 | DVH ---
INDICATION: chf TECHNIQUE: Single frontal view of the chest was obtained COMPARISON: XY CHEST PORTABLE on DOS: 12/03/24, XY CHEST PORTABLE on DOS: 12/02/24, XR CHEST 1 VIEW on DO S: 12/02/22, XR CHEST 1 VIEW on DOS: 09/26/22, XY CHEST PORTABLE on DOS: 12/03/24 FINDINGS: Lines and Tubes: Endotracheal tube and enteric catheter in satisfactory position Lungs: Congestion Pleura: No effusion. No pneumothorax. Cardiomediastinal contours: Unremarkable Bones: Unremarkable IMPRESSION: Lines and tubes in satisfactory position.
[2024-12-04 07:51] LABS: Base Excess -4.1 mmol/L (-2.0-3.0)
--- NOTE | 2024-12-04 10:18 | DVHPN2 ---
Subjective Chemically sedated Reviewed: Care Plan, H&P, Labs, Medications Changes from previous H/P or p: No Changes General: Per HPI Respiratory: Shortness of breath Objective Vitals Vital Signs Date Time Temp Pulse Resp B/P (MAP) Pulse Ox O2 Delivery O2 Flow Rate FiO2 12/04/24 09:40 81 22 118/61 (80) 100 35 12/04/24 04:01 98.8 98.8 12/04/24 04:00 Mechanical Ventilator+ Intake/Output Intake and Output 12/04/24 07:00 Intake Total 2590.946 ml Output Total 1100 ml Balance 1490.946 ml Intake Oral 0 ml IV Total 2590.946 ml Output Urine Total 1100 ml General Appearance: mild distress, Other (Chemically sedated) HEENT: Atraumatic, PERRLA Lungs: Clear to auscultation, Normal air movement, Other (Mechanical ventilation) Cardiovascular: Normal S1, Normal S2 Abdomen: Normal bowel sounds, Soft, No tenderness Genitourinary: No Apparent Abnormalities Musculoskeletal: Normal sensory function, Normal motor function Extremities: No clubbing, No cyanosis Skin: Dry, Intact Psych/Mental Status: Other (Unable to assess) Medications Current Medications Medications Dose Ordered Sig/Aren Route Start Time Stop Time Status Last Admin Dose Admin Propofol 100 ml @ 4.41 mls/hr [id number] IV 12/02/24 06:45 12/04/24 09:13 30.87 MLS/HR Midazolam HCl 50 ml @ 1 mls/hr Q24H IV 12/02/24 06:45 12/04/24 00:47 5 MLS/HR Fentanyl Citrate 250 ml @ 2.5 mls/hr Q24H IV 12/02/24 06:45 12/03/24 16:25 15 MLS/HR Norepinephrine Bitartrate 250 ml @ 3.75 mls/hr Q24H IV 12/02/24 06:45 12/02/24 09:00 3.75 MLS/HR Ondansetron HCl 4 mg Q4HP PRN IV 12/02/24 10:15 Docusate Sodium 100 mg BIDPRN PRN PO 12/02/24 10:15 Enoxaparin Sodium 40 mg DAILY SC 12/03/24 10:00 12/04/24 09:24 40 MG Acetaminophen 650 mg Q6HP PRN PO 12/02/24 10:15 Nitroglycerin 0.4 mg Q5MINP PRN SL 12/02/24 10:15 Albuterol 2.5 mg Q6HWA [facility] 12/02/24 12:00 12/04/24 05:57 2.5 MG Ipratropium [place] 0.5 mg Q6HWA [facility] 12/02/24 12:00 12/04/24 05:57 0.5 MG Methylprednisolone Sodium Succinate 40 mg BID IV 12/02/24 22:00 12/04/24 09:52 40 MG Azithromycin 250 ml @ 125 mls/hr DAILY IV 12/03/24 10:00 12/04/24 10:06 125 MLS/HR Ceftriaxone Sodium 50 ml @ 100 mls/hr DAILY@09 IV 12/03/24 09:00 12/04/24 09:23 100 MLS/HR Vancomycin HCl 0 ml @ 0 mls/hr UD IV 12/02/24 15:00 Vancomycin HCl 250 ml @ 200 mls/hr Q12H IV 12/03/24 07:00 12/04/24 07:11 200 MLS/HR Sodium Chloride 1,000 ml @ 75 mls/hr [id number] IV 12/03/24 11:45 12/03/24 11:45 75 MLS/HR Albuterol 2.5 mg Q2HPRN PRN NEB 12/04/24 10:15 UNV Metoclopramide HCl 10 mg Q8HR GT 12/04/24 14:00 12/06/24 06:01 UNV Laboratory Results Laboratory Tests 12/04/24 04:26 Chemistry Test 12/04/24 04:26 Calcium Level 8.5 mg/dL (8.7-10.4) L Magnesium Level 2.6 mg/dL (1.6-2.6) Urinalysis Test 12/02/24 07:12 Urine Color Light-yellow (Yellow) Urine Clarity Clear (Clear) Urine pH 5.0 (5.0-9.0) Urine Specific [place] 1.015 (1.001-1.035) Urine Protein Negative (Negative) Urine Ketones Negative (Negative) Urine Blood Negative /uL (Negative) Urine Nitrite Negative (Negative) Urine Bilirubin Negative (Negative) Urine Urobilinogen Normal mg/dL (Negative) Urine Leukocyte Esterase Negative /uL (Negative) Urine RBC 1 /hpf (0 - 4) Urine Microscopic WBC 3 /HPF (0-5) Urine Squamous Epithelial Cells Few /hpf (<5) Urine Bacteria None seen /hpf (None Seen) Urine Mucus Few (None Seen) Urine Glucose Normal mg/dL (Normal) Blood Gas Results Test 12/04/24 07:42 Arterial Blood pH 7.321 (7.350-7.450) FiO2 % 35.0 Microbiology Microbiology Date/Time Source Procedure Growth Status 12/03/24 11:49 Urine - [place] Urine Culture - Preliminary Resulted 12/02/24 12:45 Nose MRSA Screen - Final Complete 12/02/24 06:30 Blood Blood Culture - Preliminary Resulted 12/02/24 06:25 Sputum Gram Stain - Final Resulted 12/02/24 06:25 Sputum Respiratory Culture - Preliminary Resulted Labs and/or images reviewed: Labs reviewed by me, Image(s) reviewed by me Assessment/Plan Assessment/Plan Impression: -acute hypoxic respiratory failure -asthma exacerbation -morbid obesity -NSTEMI, probably type 2 -Leukocytosis, rule out sepsis given positive blood culture. Questionable contamination Course of hospitalization: Events: Patient had questionable bronchospasms with turning yesterday. Resolved with treatments. Patient continues to be on low O2 requirements. CT angiogram of the chest pending. -continue current vent settings -repeat blood cultures tomorrow -continue empiric antibiotic therapy -PUD, DVT prophylaxis -echocardiogram : Reviewed, unremarkable -discussed plan of care with the patient's daughter yesterday. We will discuss with her need for PICC line placement as well as consent for CTA -repeat labs, chest x-ray, ABG in a.m. Critical care time spent with patient discussing and formulating plan of care: 40 minutes. This does not include time spent performing procedures. This medical document was created using an electronic medical record system with [employer] dictation system. Although this document has been carefully reviewed, there may still be some phonetic and typographical errors. These areas are purely typographical due to imperfections of the software programs, and do not reflect any compromise in the patient's medical care. Plan discussed with: Patient, Other (RN) My Orders Orders - SHANICE DELEON NP Procedure Category Date Status Time Sodium Chloride 0.9% PHA 12/03/24 In Process 11:45 Echo 2d Mode Cardiac US 12/03/24 Resulted DOP 11:35 Ventilator Orders RT 12/03/24 Transmitted 11:35 Basic Metabolic Panel LAB 12/05/24 Verified 05:00 Basic Metabolic Panel LAB 12/06/24 Verified 05:00 Complete Blood Count LAB 12/05/24 Verified 05:00 Complete Blood Count LAB 12/06/24 Verified 05:00 Chest Portable XY 12/04/24 Resulted 04:00 Abg W/ Co-Ox RT 12/04/24 Logged 04:00 Apply Z-Guard ZANDER 12/03/24 In Process 14:[address] 12/04/24 Logged Contrast 08:22 Albuterol Medneb PHA 12/04/24 Logged (Ventolin Medneb) 10:15 Sodium Zirconium PHA 12/04/24 Logged Cyclosilicate 10:15 Loratadine Tablet PHA 12/04/24 Logged (Claritin Tablet) 10:15 Basic Metabolic Panel LAB 12/05/24 Verified 04:00 Complete Blood Count LAB 12/05/24 Verified 04:00 Metoclopramide Oral PHA 12/04/24 Logged Soln (Reglan Oral So 14:00 Date of Service: Dec 04, 2024 Billing Provider: SHANICE DELEON NP Common Visit Codes: [id number]-TXE/OBS DISCH DAY >30min SHANICE DELEON NP Dec 04, 2024 10:18
[2024-12-04] MEDS: SODIUM ZIRCONIUM CYCL 10 GM PAK PO ONE (11:10)
[2024-12-04] MEDS: LORATADINE 10 MG TAB PO ONE (11:10)
[2024-12-04] MEDS: methylPREDNISolone SOD SUCC 125 MG/2 ML VL ONE (15:23)
[2024-12-04] MEDS: methylPREDNISolone SOD SUCC 125 MG/2 ML VL IV ONE (15:24)
[2024-12-04 15:27] LABS: INR 1.03 (0.9-1.15); Partial Thromboplastin Time 24.5 SEC (24.5-34.5); Prothrombin Time 10.9 sec (9.3-11.8)
[2024-12-04] MEDS: ALBUTEROL SULF 2.5 MG/0.5ML(0.5%) NEB SOLN NEB ONE (15:30)
[2024-12-04] MEDS: METOCLOPRAMIDE 10 mg/10ml ORAL soln GT SCH (15:54)
[2024-12-04] MEDS: IOHEXOL 350 MG/ML 100ML IJ ONE ×2 (16:21→20:37)
[2024-12-04] MEDS: LIDOCAINE 1% (LOCAL ANESTH.) PF 5ml SDV ID ONE (18:45)
[2024-12-04] MEDS: SODIUM CHLOR 0.9% PF (SALINE LOCK) 10ML VIAL/SYR IV SCH (22:00)
[2024-12-04] MEDS: BUDESONIDE (INHALATION) 0.5 MG/2 ML NEB NEB SCH (22:30)
[2024-12-05] VITALS (108 sets, daily range): BP systolic 67–141; BP diastolic 38–80; PULSE 68–106; RESP 12–24; TEMP 93.9–100.9; O2SAT 90–100
[2024-12-05] MEDS: ALBUTEROL SULF 2.5 MG/0.5ML(0.5%) NEB SOLN NEB PRN (00:04)
--- NOTE | 2024-12-05 01:02 | DVH ---
CTA Chest with intravenous contrast INDICATION: hypoxia, rule out PE COMPARISON: None TECHNIQUE: Multidetector spiral CTA of the chest was performed of the chest with intravenous contrast . PULMONARY ANGIOGRAPHY PROTOCOL was utilized using a bolus-tracking technique centered on the main p ulmonary artery. Axial, coronal and sagittal multiplanar and MIP reformats were performed. Radiation Dose : 1. Chest: CTDI volume is 27.88 mGy. Dose-length product is 2054.70 mGy*cm The dose indicators for CT are the volume Computed Tomography (CT) Dose Index (CTDIvol) and the Dose Length Product (DLP), and are measured in units of mGy and mGy-cm, respectively. These indicators are not patient dose, but values generated from the CT scanner acquisition factors. The report includes radiation exposure data for exposures received during this examination. Findings: Pulmonary artery: There is suboptimal opacification of the pulmonary arterial vasculature secondary to bolus timing whi ch limits the exclusion of smaller and/or more distal segmental and subsegmental pulmonary emboli. No large central or large segmental pulmonary embolism. The main pulmonary artery measures 2.8 cm in the ascending thoracic aorta measures 3.1 cm. Lower neck: Normal thyroid. Lungs: Patchy bibasilar pulmonary infiltrate, [id number], with consolidative features wi thin the right lower lobe. No evidence of pleural effusion or pneumothorax. The patient is intubated and an enteric catheter terminates within the gastric lumen. Heart/Vascular Structures: Normal heart size. No pericardial effusion. Lymph Nodes: No adenopathy Musculoskeletal: No acute osseous abnormality. Soft tissues: Normal. Upper abdomen: Gallbladder distention and hepatic steatosis. IMPRESSION: 1. Suboptimal opacification of the pulmonary arterial vasculature secondary to bolus timing which [place] its the exclusion of smaller and/or more distal segmental and subsegmental pulmonary emboli. 2. No large central or large segmental pulmonary embolism. 3. Patchy bibasilar pulmonary infiltrate with consolidative features within the right lower lobe. 4. Hepatic steatosis. 5. Gallbladder distention.
[2024-12-05 05:14] LABS: Hematocrit 37.2 % (36.0-46.0); Hemoglobin 12.9 g/dL (12.2-16.2); Mean Corpuscular Hemoglobin 32.0 pg (28.0-32.0); Mean Corpuscular Volume 92.2 fL (80.0-100.0); Nucleated Red Blood Cells % 0.0 %
[2024-12-05 05:16] LABS: Anion Gap 8 (5-15); Carbon Dioxide 26 mmol/L (20-31); Potassium 4.1 mmol/L (3.5-5.1); Sodium 145 mmol/L (136-145)
[2024-12-05 05:22] LABS: BUN/Creatinine Ratio 34.1 (10.0-20.0)
[2024-12-05 05:36] LABS: Blood Urea Nitrogen 28 mg/dL (9-23); Calcium 8.4 mg/dL (8.7-10.4); Chloride 111 mmol/L (98-107); Glucose 129 mg/dL (74-106)
--- NOTE | 2024-12-05 06:13 | DVH ---
Exam: US US GUIDED VASCULAR ACCESS Clinical History: PICC LINE PLACEMENT Comparison: None Technique: Targeted sonographic evaluation of the soft tissues of the arm vein was obtained utilizing grayscale and color Doppler imaging. Findings/Impression: Sonographic assistance for PICC line placement. Please refer to procedural report for detailed findi ngs.
--- NOTE | 2024-12-05 06:47 | DVH ---
CHEST RADIOGRAPH Indication: INTUBATED, RECENT PICC LINE INSERTION Technique: Single frontal view of the chest was obtained COMPARISON: XY CHEST PORTABLE on DOS: 12/04/24, XY CHEST PORTABLE on DOS: 12/03/24, XY CHEST PORTABLE on DOS: 12/02/24, XR CHEST 1 VIEW on DOS: 12/02/22, XR CHEST 1 VIEW on DOS: 09/26/22 FINDINGS: Lines and Tubes: Unchanged. Lungs: Stable appearing diffuse increased prominence of the pulmonary vasculature. No evidence of foc al consolidation. Pleura: No effusion. No pneumothorax. Cardiomediastinal contours: Unremarkable Bones: Unremarkable IMPRESSION: 1. Stable mild pulmonary edema. 2. Lines and tubes unchanged.
[2024-12-05 09:07] LABS: Base Excess -1.0 mmol/L (-2.0-3.0)
[2024-12-05] MEDS: FUROSEMIDE 40 MG/4 ML VIAL IV ONE (12:27)
--- NOTE | 2024-12-05 14:35 | DVHPN2 ---
Progress Note - Dictate Date Seen: Dec 05, 2024 Medical Necessity Reason Pt with a Central, PICC or Fol: Yes The following are medically ne: Central Line vital signs Vital Sign Date Time Temp Pulse Resp B/P (MAP) Pulse Ox O2 Delivery O2 Flow Rate FiO2 12/05/24 13:25 129/61 12/05/24 12:36 100 23 90 30 12/05/24 12:15 98.7 98.7 12/05/24 12:00 Mechanical Ventilator+ Total Intake and Output 12/04/24 12/04/24 12/05/24 15:00 23:00 07:00 Intake Total 1166.20 ml 1428.96 ml 1579.54 ml Output Total 0 ml 650 ml 600 ml Balance 1166.20 ml 778.96 ml 979.54 ml medications Current Medications Medications Dose Ordered Sig/Aren Route Start Time Stop Time Status Last Admin Dose Admin Propofol 100 ml @ 4.41 mls/hr [id number] IV 12/02/24 06:45 12/05/24 13:23 22.05 MLS/HR Midazolam HCl 50 ml @ 1 mls/hr Q24H IV 12/02/24 06:45 12/05/24 13:25 5 MLS/HR Fentanyl Citrate 250 ml @ 2.5 mls/hr Q24H IV 12/02/24 06:45 12/05/24 11:00 17.5 MLS/HR Norepinephrine Bitartrate 250 ml @ 3.75 mls/hr Q24H IV 12/02/24 06:45 12/02/24 09:00 3.75 MLS/HR Ondansetron HCl 4 mg Q4HP PRN IV 12/02/24 10:15 Docusate Sodium 100 mg BIDPRN PRN PO 12/02/24 10:15 Enoxaparin Sodium 40 mg DAILY SC 12/03/24 10:00 12/05/24 08:30 40 MG Acetaminophen 650 mg Q6HP PRN PO 12/02/24 10:15 Nitroglycerin 0.4 mg Q5MINP PRN SL 12/02/24 10:15 Albuterol 2.5 mg Q6HWA NEB 12/02/24 12:00 12/05/24 12:32 2.5 MG Ipratropium [place] 0.5 mg Q6HWA NEB 12/02/24 12:00 12/05/24 12:32 0.5 MG Methylprednisolone Sodium Succinate 40 mg BID IV 12/02/24 22:00 12/05/24 08:29 40 MG Azithromycin 250 ml @ 125 mls/hr DAILY IV 12/03/24 10:00 12/05/24 08:29 125 MLS/HR Ceftriaxone Sodium 50 ml @ 100 mls/hr DAILY@09 IV 12/03/24 09:00 12/05/24 08:29 100 MLS/HR Vancomycin HCl 0 ml @ 0 mls/hr UD IV 12/02/24 15:00 Vancomycin HCl 250 ml @ 200 mls/hr Q12H IV 12/03/24 07:00 12/05/24 05:57 200 MLS/HR Sodium Chloride 1,000 ml @ 75 mls/hr [id number] IV 12/03/24 11:45 12/03/24 11:45 75 MLS/HR Albuterol 2.5 mg Q2HPRN PRN [facility] 12/04/24 10:15 12/05/24 00:04 2.5 MG Metoclopramide HCl 10 mg Q8HR GT 12/04/24 14:00 12/06/24 06:01 12/05/24 05:57 10 MG Budesonide 0.5 mg BID [facility] 12/04/24 22:00 12/05/24 09:42 0.5 MG Sodium Chloride 10 ml QSHIFT@10,22 IV 12/04/24 22:00 12/05/24 08:29 10 ML laboratory and microbiology Laboratory Tests 12/05/24 04:36 Test 12/05/24 04:36 Range/Units Serum Glucose 129 H 74-106 mg/dL Assessment/Plan Covering for Dr. [place] Impression Acute hypoxemic respiratory failure Multiple allergies Morbid obesity Asthma Patient seen and examined in JAN Events On mechanical ventilation S/p intubation PEEP 8, FiO2 35% Oxygen saturation barely 90% Labs and imaging reviewed ABG reviewed Management Vent support Titrate to maintain sats 90% or above Sedation holiday daily If patient follows commands, proceed to weaning trial Pressure support 10/03, extubate when ready Okay to use Precedex Continue antibiotics F/u cultures Bronchodilators Monitor renal function Monitor electrolytes Supplement as needed Pressors as needed for hemodynamic support To maintain a mean arterial pressure of 65 mmHg DVT prophylaxis Critical care time 35 minutes Dietary Evaluation Review Comments: Nutrition Recommendation: 1) TF Vital High Protein @ 50ml/hr x 24hr (goal rate) along with Pro-stat 1 pk BID. Start @ 20ml/hr, increase 10ml/hr Q4H until goal is reached. TF @ goal volume along with Pro-stat & Propofol provide 2564 kcal (100% energy needs), 135 gm protein (100% protein needs), 1003 ml free water. 2) Water flush 260ml Q4H if allowed, adjust PRN 3) TPN if NPO >7 days 4) Monitor NPO status, lab values, wt trend, I/O Expected Outcomes/Goals: To meet >75% estimated needs Lab values to improve Fu 2-3 days Plan discussed with: Other (Rn) MALLY LARA MD Dec 05, 2024 14:35
--- NOTE | 2024-12-05 17:37 | DVHPN2 ---
Progress Note Date Seen: Dec 05, 2024 Medical Necessity Reason Pt with a Central, PICC or Fol: Yes The following are medically ne: Central Line Subjective Patient reports: Other Objective vital signs Vital Sign Date Time Temp Pulse Resp B/P (MAP) Pulse Ox O2 Delivery O2 Flow Rate FiO2 12/05/24 17:00 99.1 84 22 119/60 (79) 92 210.4 12/05/24 16:39 30 12/05/24 16:00 Mechanical Ventilator+ Total Intake and Output 12/04/24 12/04/24 12/05/24 15:00 23:00 07:00 Intake Total 1166.20 ml 1428.96 ml 1579.54 ml Output Total 0 ml 650 ml 600 ml Balance 1166.20 ml 778.96 ml 979.54 ml medications Current Medications Medications Dose Ordered Sig/Aren Route Start Time Stop Time Status Last Admin Dose Admin Propofol 100 ml @ 4.41 mls/hr [id number] IV 12/02/24 06:45 12/05/24 13:23 22.05 MLS/HR Midazolam HCl 50 ml @ 1 mls/hr Q24H IV 12/02/24 06:45 12/05/24 16:31 7 MLS/HR Fentanyl Citrate 250 ml @ 2.5 mls/hr Q24H IV 12/02/24 06:45 12/05/24 11:00 17.5 MLS/HR Norepinephrine Bitartrate 250 ml @ 3.75 mls/hr Q24H IV 12/02/24 06:45 12/02/24 09:00 3.75 MLS/HR Ondansetron HCl 4 mg Q4HP PRN IV 12/02/24 10:15 Docusate Sodium 100 mg BIDPRN PRN PO 12/02/24 10:15 Enoxaparin Sodium 40 mg DAILY SC 12/03/24 10:00 12/05/24 08:30 40 MG Acetaminophen 650 mg Q6HP PRN PO 12/02/24 10:15 Nitroglycerin 0.4 mg Q5MINP PRN SL 12/02/24 10:15 Albuterol 2.5 mg Q6HWA NEB 12/02/24 12:00 12/05/24 12:32 2.5 MG Ipratropium [place] 0.5 mg Q6HWA NEB 12/02/24 12:00 12/05/24 12:32 0.5 MG Methylprednisolone Sodium Succinate 40 mg BID IV 12/02/24 22:00 12/05/24 08:29 40 MG Azithromycin 250 ml @ 125 mls/hr DAILY IV 12/03/24 10:00 12/05/24 08:29 125 MLS/HR Ceftriaxone Sodium 50 ml @ 100 mls/hr DAILY@09 IV 12/03/24 09:00 12/05/24 08:29 100 MLS/HR Vancomycin HCl 0 ml @ 0 mls/hr UD IV 12/02/24 15:00 Vancomycin HCl 250 ml @ 200 mls/hr Q12H IV 12/03/24 07:00 12/05/24 05:57 200 MLS/HR Sodium Chloride 1,000 ml @ 75 mls/hr [id number] IV 12/03/24 11:45 12/05/24 16:51 75 MLS/HR Albuterol 2.5 mg Q2HPRN PRN NEB 12/04/24 10:15 12/05/24 16:39 2.5 MG Metoclopramide HCl 10 mg Q8HR GT 12/04/24 14:00 12/06/24 06:01 12/05/24 16:30 10 MG Budesonide 0.5 mg BID NEB 12/04/24 22:00 12/05/24 09:42 0.5 MG Sodium Chloride 10 ml QSHIFT@10,22 IV 12/04/24 22:00 12/05/24 08:29 10 ML Examination General Appearance: NAD, intubated and sedated HEENT: Atraumatic, PERRLA Lungs: Clear to auscultation Cardiovascular: Normal S1, Normal S2 Abdomen: Normal bowel sounds, Soft, No tenderness Genitourinary: No Apparent Abnormalities Musculoskeletal: Normal sensory function, Normal motor function Extremities: No clubbing, No cyanosis Skin: Dry, Intact laboratory and microbiology Laboratory Tests 12/05/24 04:36 Test 12/05/24 04:36 Range/Units Serum Glucose 129 H 74-106 mg/dL Microbiology Date/Time Source Procedure Growth Status 12/05/24 09:22 Catheter Tip Received 12/04/24 15:01 Blood Blood Culture - Preliminary NO GROWTH AFTER 24 HOURS OF INCUBATION. Resulted 12/03/24 11:49 Urine - [place] Urine Culture - Preliminary Resulted 12/02/24 06:25 Sputum Gram Stain - Final Complete 12/02/24 06:25 Sputum Respiratory Culture - Final Complete Problem List/Assessment/Plan Problem List/Assessment/Plan -acute hypoxic respiratory failure -asthma exacerbation -morbid obesity -NSTEMI, probably type 2 -Leukocytosis, rule out sepsis given positive blood culture. Questionable contamination Course of hospitalization: Events: Patient had questionable bronchospasms with turning yesterday. Resolved with treatments. Patient continues to be on low O2 requirements. CT angiogram of the chest pending. -continue current vent settings -repeat bcx pending -continue empiric antibiotic therapy -PUD, DVT prophylaxis -echocardiogram : Reviewed, unremarkable - CTA and dvt study negative Plan discussed with: Other Dietary Evaluation Review Comments: Nutrition Recommendation: 1) TF Vital High Protein @ 50ml/hr x 24hr (goal rate) along with Pro-stat 1 pk BID. Start @ 20ml/hr, increase 10ml/hr Q4H until goal is reached. TF @ goal volume along with Pro-stat & Propofol provide 2564 kcal (100% energy needs), 135 gm protein (100% protein needs), 1003 ml free water. 2) Water flush 260ml Q4H if allowed, adjust PRN 3) TPN if NPO >7 days 4) Monitor NPO status, lab values, wt trend, I/O Expected Outcomes/Goals: To meet >75% estimated needs Lab values to improve Fu 2-3 days Date of Service: Dec 05, 2024 Billing Provider: ED SEALS MD Common Visit Codes: [id number] CARE 30-74 MIN ED SEALS MD Dec 05, 2024 17:37
[2024-12-06] VITALS (105 sets, daily range): BP systolic 104–187; BP diastolic 32–97; PULSE 74–109; RESP 9–26; TEMP 56.8–99.3; O2SAT 90–98
--- NOTE | 2024-12-06 05:56 | DVH ---
CHEST RADIOGRAPH Indication: INTUBATED Technique: Single frontal view of the chest was obtained Comparison: XY CHEST PORTABLE on DOS: 12/05/24, CT CT ANGIO CHEST CONTRAST on DOS: 12/04/24, XY CHEST POR TABLE on DOS: 12/04/24 IMPRESSION: Heart is normal in size. Endotracheal tube and enteric tube appear satisfactory position. Right PICC tip in the region of the superior vena cava. Increased airspace opacity right lower lung with probab le effusion and consolidation. Moderate pulmonary vascular congestion has worsened. No pneumothorax.
[2024-12-06 06:13] LABS: Hematocrit 35.5 % (36.0-46.0); Hemoglobin 12.4 g/dL (12.2-16.2); Mean Corpuscular Hemoglobin 32.0 pg (28.0-32.0); Mean Corpuscular Volume 91.8 fL (80.0-100.0); Nucleated Red Blood Cells % 0.1 %
[2024-12-06 06:25] LABS: Anion Gap 11 (5-15); Carbon Dioxide 27 mmol/L (20-31); Potassium 4.6 mmol/L (3.5-5.1)
[2024-12-06 06:32] LABS: BUN/Creatinine Ratio 48.7 (10.0-20.0)
[2024-12-06 06:46] LABS: Chloride 109 mmol/L (98-107); Glucose 128 mg/dL (74-106); Sodium 147 mmol/L (136-145)
[2024-12-06 06:47] LABS: Blood Urea Nitrogen 55 mg/dL (9-23); Calcium 8.2 mg/dL (8.7-10.4)
[2024-12-06 07:50] LABS: Base Excess 2.8 mmol/L (-2.0-3.0)
[2024-12-06] MEDS: DEXMEDETOMIDINE HCL IN D5W 100 ML IV SCH (11:30)
[2024-12-06] MEDS: PANTOPRAZOLE 40 MG/10 ML VIAL INJ IV ONE (11:45)
--- NOTE | 2024-12-06 14:51 | DVH ---
Date: 12/06/2024 01:41 PM Examination: XY KUB ABDOMEN SINGLE VIEW History: high gastric residuals/ r/o obstruction Comparison: None TECHNIQUE: Frontal views of the abdomen was obtained. Received 2 images of the abdomen. One high; on e low. FINDINGS: Bowel gas pattern is unremarkable. The lung bases are unremarkable. No acute osseous abnormality identified. IMPRESSION: 1. Nonobstructive bowel gas pattern.
--- NOTE | 2024-12-06 14:51 | DVHPN2 ---
Progress Note Date Seen: Dec 06, 2024 Medical Necessity Reason Pt with a Central, PICC or Fol: Yes The following are medically ne: Central Line Subjective Patient reports: No new complaints (Patient is intubated, off sedation on bed. No apparent distress) Objective vital signs Vital Sign Date Time Temp Pulse Resp B/P (MAP) Pulse Ox O2 Delivery O2 Flow Rate FiO2 12/06/24 14:00 22 94 Mechanical Ventilator+ 40 40 12/06/24 14:00 97 12/06/24 13:46 99.1 150/79 (102) 210.4 Total Intake and Output 12/05/24 12/05/24 12/06/24 15:00 23:00 07:00 Intake Total 1153.85 ml 986.53 ml 883.91 ml Output Total 0 ml 1250 ml 1400 ml Balance 1153.85 ml -263.47 ml -516.09 ml medications Current Medications Medications Dose Ordered Sig/Aren Route Start Time Stop Time Status Last Admin Dose Admin Propofol 100 ml @ 4.41 mls/hr [id number] IV 12/02/24 06:45 12/06/24 05:27 4.41 MLS/HR Midazolam HCl 50 ml @ 1 mls/hr Q24H IV 12/02/24 06:45 12/06/24 06:21 5 MLS/HR Fentanyl Citrate 250 ml @ 2.5 mls/hr Q24H IV 12/02/24 06:45 12/05/24 22:29 17.5 MLS/HR Norepinephrine Bitartrate 250 ml @ 3.75 mls/hr Q24H IV 12/02/24 06:45 12/02/24 09:00 3.75 MLS/HR Ondansetron HCl 4 mg Q4HP PRN IV 12/02/24 10:15 Docusate Sodium 100 mg BIDPRN PRN PO 12/02/24 10:15 Enoxaparin Sodium 40 mg DAILY SC 12/03/24 10:00 12/06/24 08:44 40 MG Acetaminophen 650 mg Q6HP PRN PO 12/02/24 10:15 Nitroglycerin 0.4 mg Q5MINP PRN SL 12/02/24 10:15 Albuterol 2.5 mg Q6HWA NEB 12/02/24 12:00 12/06/24 12:03 2.5 MG Ipratropium [place] 0.5 mg Q6HWA NEB 12/02/24 12:00 12/06/24 12:03 0.5 MG Methylprednisolone Sodium Succinate 40 mg BID IV 12/02/24 22:00 12/06/24 09:20 40 MG Azithromycin 250 ml @ 125 mls/hr DAILY IV 12/03/24 10:00 12/06/24 08:44 125 MLS/HR Ceftriaxone Sodium 50 ml @ 100 mls/hr DAILY@09 IV 12/03/24 09:00 12/06/24 07:47 100 MLS/HR Vancomycin HCl 0 ml @ 0 mls/hr UD IV 12/02/24 15:00 Sodium Chloride 1,000 ml @ 75 mls/hr [id number] IV 12/03/24 11:45 12/06/24 00:06 75 MLS/HR Albuterol 2.5 mg Q2HPRN PRN [facility] 12/04/24 10:15 12/06/24 02:36 2.5 MG Budesonide 0.5 mg BID NEB 12/04/24 22:00 12/06/24 06:13 0.5 MG Sodium Chloride 10 ml QSHIFT@10,22 IV 12/04/24 22:00 12/06/24 08:44 10 ML Pantoprazole Sodium 40 mg BID IV 12/06/24 22:00 Examination Generally-49 years old woman, morbidly obese, lying in bed intubated. Off sedation HEENT-atraumatic normocephalic Heart-regular rate and rhythm Lungs clear to auscultate bilaterally Abdomen soft nontender nondistended Musculoskeletal musculoskeletal-no edema cyanosis Neuro-intubated and sedated laboratory and microbiology Laboratory Tests 12/06/24 05:52 12/06/24 00:00 Test 12/06/24 00:00 Range/Units Serum Glucose 128 H 74-106 mg/dL Microbiology Date/Time Source Procedure Growth Status 12/05/24 09:22 Catheter Tip Aerobic Culture - Preliminary Resulted 12/04/24 15:01 Blood Blood Culture - Preliminary NO GROWTH AFTER 24 HOURS OF INCUBATION. Resulted 12/03/24 11:49 Urine - [place] Urine Culture - Final Complete 12/02/24 06:25 Sputum Gram Stain - Final Complete 12/02/24 06:25 Sputum Respiratory Culture - Final Complete Labs and/or images reviewed: Labs reviewed by me, Image(s) reviewed by me Problem List/Assessment/Plan Problem List/Assessment/Plan -acute hypoxic respiratory failure -asthma exacerbation -morbid obesity -NSTEMI, probably type 2 -Leukocytosis, rule out sepsis given positive blood culture. Questionable contamination Course of hospitalization: Events: Patient had questionable bronchospasms with turning yesterday. Resolved with treatments. Patient continues to be on low O2 requirements. CT angiogram of the chest pending. -continue current vent settings -repeat bcx no growth today -continue empiric antibiotic therapy -PUD, DVT prophylaxis -echocardiogram : Reviewed, unremarkable - CTA and dvt study negative Daily SAT, SBT PULM rec appreciated Plan discussed with: Other (family members, mom, ) My Orders My Orders Orders - ED SEALS MD Procedure Category Date Status Time Kub Abdomen Single XY 12/06/24 Taken View 12:44 Dietary Evaluation Review Comments: Nutrition Recommendation: 1) TF Vital High Protein @ 50ml/hr x 24hr (goal rate) along with Pro-stat 1 pk BID. Start @ 20ml/hr, increase 10ml/hr Q4H until goal is reached. TF @ goal volume along with Pro-stat & Propofol provide 2564 kcal (100% energy needs), 135 gm protein (100% protein needs), 1003 ml free water. 2) Water flush 260ml Q4H if allowed, adjust PRN 3) TPN if NPO >7 days 4) Monitor NPO status, lab values, wt trend, I/O Expected Outcomes/Goals: To meet >75% estimated needs Lab values to improve Fu 2-3 days Date of Service: Dec 06, 2024 Billing Provider: ED SEALS MD Common Visit Codes: [id number] INP/OBS CARE(HIGH) ED SEALS MD Dec 06, 2024 14:51
[2024-12-06 18:21] LABS: Albumin 3.4 g/dL (3.2-4.8); Alkaline Phosphatase 53 U/L (46-116); Anion Gap 9 (5-15); BUN/Creatinine Ratio 57.7 (10.0-20.0); Carbon Dioxide 27 mmol/L (20-31); Potassium 4.7 mmol/L (3.5-5.1)
[2024-12-06 18:22] LABS: Bilirubin, Total 0.4 mg/dL (0.2-1.0)
[2024-12-06 18:25] LABS: Alanine Aminotransferase 77 U/L (7-40); Blood Urea Nitrogen 56 mg/dL (9-23); Calcium 7.8 mg/dL (8.7-10.4); Chloride 114 mmol/L (98-107); Glucose 108 mg/dL (74-106); Magnesium 3.0 mg/dL (1.6-2.6); Sodium 150 mmol/L (136-145); Total Protein 5.4 g/dL (5.7-8.2)
[2024-12-06] MEDS: PANTOPRAZOLE 40 MG/10 ML VIAL INJ IV SCH (21:20)
[2024-12-06] MEDS: CALCIUM GLUC 1,000mg/50ml-NS 50 ML IV ONE (21:51)
[2024-12-06] MEDS: D5W/SOD CHL 0.45% 1,000 ML IV SCH (21:52)
[2024-12-07] VITALS (113 sets, daily range): BP systolic 69–180; BP diastolic 58–97; PULSE 63–95; RESP 8–32; TEMP 94.1–98.8; O2SAT 87–100
[2024-12-07 00:50] LABS: Albumin 3.7 g/dL (3.2-4.8); Alkaline Phosphatase 56 U/L (46-116); Anion Gap 7 (5-15); BUN/Creatinine Ratio 54.0 (10.0-20.0); Bilirubin, Total 0.3 mg/dL (0.2-1.0); Carbon Dioxide 27 mmol/L (20-31); Potassium 5.0 mmol/L (3.5-5.1)
[2024-12-07 01:04] LABS: Alanine Aminotransferase 79 U/L (7-40); Blood Urea Nitrogen 54 mg/dL (9-23); Calcium 8.5 mg/dL (8.7-10.4); Chloride 113 mmol/L (98-107); Glucose 127 mg/dL (74-106); Sodium 147 mmol/L (136-145); Total Protein 5.6 g/dL (5.7-8.2)
--- NOTE | 2024-12-07 05:26 | DVH ---
CHEST RADIOGRAPH Indication: INTUBATED Technique: Single frontal view of the chest was obtained COMPARISON: XY CHEST PORTABLE on DOS: 12/06/24, XY CHEST PORTABLE on DOS: 12/05/24, XY CHEST PORTABLE on DOS: 12/04/24, XY CHEST PORTABLE on DOS: 12/03/24, XY CHEST PORTABLE on DOS: 12/02/24 FINDINGS: Lines and Tubes: Unchanged. Lungs: Stable appearing bibasilar pulmonary airspace disease and small bilateral pleural effusions. No pneumothorax. Cardiomediastinal contours: Cardiomegaly. Bones: Unremarkable IMPRESSION: 1. Stable cardiomegaly, bibasilar pulmonary airspace disease and small bilateral pleural effusions. 2. Lines and tubes unchanged.
[2024-12-07 06:30] LABS: Hematocrit 35.0 % (36.0-46.0); Hemoglobin 12.2 g/dL (12.2-16.2); Mean Corpuscular Hemoglobin 33.1 pg (28.0-32.0); Mean Corpuscular Volume 95.2 fL (80.0-100.0)
[2024-12-07 08:31] LABS: Base Excess 0.1 mmol/L (-2.0-3.0)
[2024-12-07 09:00] LABS: Total Cells Counted 100.0 (100)
[2024-12-07 09:01] LABS: RBC Morphology Normal
--- NOTE | 2024-12-07 10:43 | DVHPN2 ---
Subjective Chemically sedated Reviewed: Care Plan, H&P, Labs, Medications Changes from previous H/P or p: No Changes General: Per HPI Respiratory: Shortness of breath Objective Vitals Vital Signs Date Time Temp Pulse Resp B/P (MAP) Pulse Ox O2 Delivery O2 Flow Rate FiO2 12/07/24 09:28 74 22 118/61 (80) 99 35 12/07/24 06:45 98.4 209.1 12/07/24 06:00 Mechanical Ventilator+ Intake/Output Intake and Output 12/07/24 07:00 Intake Total 1995.94 ml Output Total 2600 ml Balance -604.06 ml Intake Oral 0 ml IV Total 1995.94 ml Output Urine Total 1800 ml Stool Total 0 ml Gastric Drainage Total 800 ml General Appearance: mild distress, Other (Chemically sedated) HEENT: Atraumatic, PERRLA Lungs: Clear to auscultation, Normal air movement, Other (Mechanical ventilation) Cardiovascular: Normal S1, Normal S2 Abdomen: Normal bowel sounds, Soft, No tenderness Genitourinary: No Apparent Abnormalities Musculoskeletal: Normal sensory function, Normal motor function Extremities: No clubbing, No cyanosis Skin: Dry, Intact Psych/Mental Status: Other (Unable to assess) Medications Current Medications Medications Dose Ordered Sig/Aren Route Start Time Stop Time Status Last Admin Dose Admin Propofol 100 ml @ 4.41 mls/hr [id number] IV 12/02/24 06:45 12/07/24 06:31 30.87 MLS/HR Fentanyl Citrate 250 ml @ 2.5 mls/hr Q24H IV 12/02/24 06:45 12/06/24 21:36 2.5 MLS/HR Norepinephrine Bitartrate 250 ml @ 3.75 mls/hr Q24H IV 12/02/24 06:45 12/02/24 09:00 3.75 MLS/HR Ondansetron HCl 4 mg Q4HP PRN IV 12/02/24 10:15 Docusate Sodium 100 mg BIDPRN PRN PO 12/02/24 10:15 Enoxaparin Sodium 40 mg DAILY SC 12/03/24 10:00 12/07/24 09:53 40 MG Acetaminophen 650 mg Q6HP PRN PO 12/02/24 10:15 Nitroglycerin 0.4 mg Q5MINP PRN SL 12/02/24 10:15 Albuterol 2.5 mg Q6HWA NEB 12/02/24 12:00 12/07/24 05:57 2.5 MG Ipratropium [place] 0.5 mg Q6HWA NEB 12/02/24 12:00 12/07/24 05:57 0.5 MG Ceftriaxone Sodium 50 ml @ 100 mls/hr DAILY@09 IV 12/03/24 09:00 12/07/24 09:52 100 MLS/HR Albuterol 2.5 mg Q2HPRN PRN [facility] 12/04/24 10:15 12/06/24 02:36 2.5 MG Budesonide 0.5 mg BID NEB 12/04/24 22:00 12/07/24 05:58 0.5 MG Sodium Chloride 10 ml QSHIFT@10,22 IV 12/04/24 22:00 12/07/24 09:52 10 ML Pantoprazole Sodium 40 mg BID IV 12/06/24 22:00 12/06/24 21:20 40 MG Dextrose/Sodium Chloride 1,000 ml @ 75 mls/hr [id number] IV 12/06/24 21:00 12/06/24 21:52 75 MLS/HR Methylprednisolone Sodium Succinate 40 mg DAILY IV 12/08/24 10:00 UNV Pantoprazole Sodium 40 mg DAILY IV 12/07/24 10:45 UNV Laboratory Results Laboratory Tests 12/07/24 05:11 Chemistry Test 12/06/24 17:30 12/07/24 00:20 12/07/24 10:11 Albumin 3.4 g/dL (3.2-4.8) 3.7 g/dL (3.2-4.8) Pending Calcium Level 7.8 mg/dL (8.7-10.4) L 8.5 mg/dL (8.7-10.4) L Pending Magnesium Level 3.0 mg/dL (1.6-2.6) H Pending Total Protein 5.4 g/dL (5.7-8.2) L 5.6 g/dL (5.7-8.2) L Pending LFT Test 12/06/24 17:30 12/07/24 00:20 12/07/24 10:11 Alanine Aminotransferase (ALT) 77 U/L (7-40) H 79 U/L (7-40) H Pending Alkaline Phosphatase 53 U/L (46-116) 56 U/L (46-116) Pending Aspartate Amino Transferase (AST) 89 U/L (13-40) H 84 U/L (13-40) H Pending Total Bilirubin 0.4 mg/dL (0.2-1.0) 0.3 mg/dL (0.2-1.0) Pending Urinalysis Test 12/02/24 07:12 Urine Color Light-yellow (Yellow) Urine Clarity Clear (Clear) Urine pH 5.0 (5.0-9.0) Urine Specific [place] 1.015 (1.001-1.035) Urine Protein Negative (Negative) Urine Ketones Negative (Negative) Urine Blood Negative /uL (Negative) Urine Nitrite Negative (Negative) Urine Bilirubin Negative (Negative) Urine Urobilinogen Normal mg/dL (Negative) Urine Leukocyte Esterase Negative /uL (Negative) Urine RBC 1 /hpf (0 - 4) Urine Microscopic WBC 3 /HPF (0-5) Urine Squamous Epithelial Cells Few /hpf (<5) Urine Bacteria None seen /hpf (None Seen) Urine Mucus Few (None Seen) Urine Glucose Normal mg/dL (Normal) Blood Gas Results Test 12/07/24 08:19 Arterial Blood pH 7.369 (7.350-7.450) FiO2 % 40.0 Microbiology Microbiology Date/Time Source Procedure Growth Status 12/05/24 09:22 Catheter Tip Aerobic Culture - Preliminary Resulted 12/04/24 15:01 Blood Blood Culture - Preliminary NO GROWTH AFTER 48 HOURS OF INCUBATION. Resulted 12/03/24 11:49 Urine - [place] Urine Culture - Final Complete 12/02/24 06:25 Sputum Gram Stain - Final Complete 12/02/24 06:25 Sputum Respiratory Culture - Final Complete Labs and/or images reviewed: Labs reviewed by me, Image(s) reviewed by me Assessment/Plan Assessment/Plan Impression: -acute hypoxic respiratory failure -asthma exacerbation -morbid obesity -NSTEMI, probably type 2 -Leukocytosis, rule out sepsis given positive blood culture. Questionable contamination Course of hospitalization: Events: Attempted to wean sedation with noted ventilator asynchrony. CPAP trial once appropriate. Start Precedex. Stop Versed drip. Given blood cultures, stop vancomycin, azithromycin coverage completed. Continue Rocephin. -continue current vent settings -PUD, DVT prophylaxis -echocardiogram : Reviewed, unremarkable -plan of care discussed with the patient's daughter who were there were bedside. All questions answered. -repeat labs, chest x-ray, ABG in a.m. Critical care time spent with patient discussing and formulating plan of care: 40 minutes. This does not include time spent performing procedures. This medical document was created using an electronic medical record system with [employer] dictation system. Although this document has been carefully reviewed, there may still be some phonetic and typographical errors. These areas are purely typographical due to imperfections of the software programs, and do not reflect any compromise in the patient's medical care. Plan discussed with: Patient, Other (RN) My Orders Orders - SHANICE DELEON NP Procedure Category Date Status Time Abg W/ Co-Ox RT 12/07/24 Logged 08:00 Methylprednisolone PHA 12/08/24 Logged Sod Succ (Solu Medrol 10:00 Pantoprazole PHA 12/07/24 Logged (Protonix) 10:45 Date of Service: Dec 07, 2024 Billing Provider: SHANICE DELEON NP Common Visit Codes: [id number] CARE 30-74 MIN SHANICE DELEON NP Dec 07, 2024 10:43
[2024-12-07] MEDS: PANTOPRAZOLE 40 MG/10 ML VIAL INJ IV SCH (10:45)
[2024-12-07 11:49] LABS: Alkaline Phosphatase 51 U/L (46-116); Anion Gap 9 (5-15); BUN/Creatinine Ratio 50.5 (10.0-20.0); Carbon Dioxide 26 mmol/L (20-31)
[2024-12-07 11:50] LABS: Albumin 3.5 g/dL (3.2-4.8); Bilirubin, Total 0.4 mg/dL (0.2-1.0)
[2024-12-07 12:01] LABS: Alanine Aminotransferase 77 U/L (7-40); Blood Urea Nitrogen 48 mg/dL (9-23); Calcium 8.4 mg/dL (8.7-10.4); Chloride 113 mmol/L (98-107); Glucose 132 mg/dL (74-106); Magnesium 3.1 mg/dL (1.6-2.6); Potassium 5.1 mmol/L (3.5-5.1); Sodium 148 mmol/L (136-145); Total Protein 5.5 g/dL (5.7-8.2)
[2024-12-08] VITALS (108 sets, daily range): BP systolic 120–194; BP diastolic 56–101; PULSE 63–125; RESP 11–26; TEMP 97.7–99.1; O2SAT 88–100
[2024-12-08] MEDS: hydrALAZINE HCL 20 MG/ML VL IV ONE (04:51)
[2024-12-08] MEDS: DOCUSATE ORAL LIQUID 100 MG/10 ML UD GT PRN (05:35)
--- NOTE | 2024-12-08 05:54 | DVH ---
CHEST RADIOGRAPH Indication: INTUBATED Technique: Single frontal view of the chest was obtained COMPARISON: XY CHEST XRAY 1 VIEW on DOS: 12/07/24, XY CHEST PORTABLE on DOS: 12/06/24, XY CHEST PORTABLE on DOS: 12/05/24, XY CHEST PORTABLE on DOS: 12/04/24, XY CHEST PORTABLE on DOS: 12/03/24, XY CHEST PORTABLE on DOS: 12/04/24 FINDINGS: Lines and Tubes: Endotracheal tube and enteric catheter in satisfactory position Lungs: Congestion Pleura: No effusion. No pneumothorax. Cardiomediastinal contours: Unremarkable Bones: Unremarkable IMPRESSION: Lines and tubes in satisfactory position.
[2024-12-08 05:58] LABS: Albumin 3.8 g/dL (3.2-4.8); Alkaline Phosphatase 57 U/L (46-116); Anion Gap 9 (5-15); BUN/Creatinine Ratio 63.9 (10.0-20.0); Bilirubin, Total 0.5 mg/dL (0.2-1.0); Calcium 8.8 mg/dL (8.7-10.4); Carbon Dioxide 27 mmol/L (20-31); Glucose 103 mg/dL (74-106); Potassium 4.9 mmol/L (3.5-5.1)
[2024-12-08 06:01] LABS: Alanine Aminotransferase 84 U/L (7-40); Blood Urea Nitrogen 53 mg/dL (9-23); Chloride 111 mmol/L (98-107); Magnesium 2.7 mg/dL (1.6-2.6); Sodium 147 mmol/L (136-145); Total Protein 5.7 g/dL (5.7-8.2)
[2024-12-08 06:09] LABS: Hematocrit 37.8 % (36.0-46.0); Hemoglobin 12.5 g/dL (12.2-16.2); Mean Corpuscular Hemoglobin 30.8 pg (28.0-32.0); Mean Corpuscular Volume 93.2 fL (80.0-100.0)
[2024-12-08 06:57] LABS: Total Cells Counted 100.0 (100)
[2024-12-08 07:38] LABS: Base Excess -0.9 mmol/L (-2.0-3.0)
[2024-12-08] MEDS: methylPREDNISolone SOD SUCC 40 MG/ML VL IV SCH (10:00)
--- NOTE | 2024-12-08 10:24 | DVHPN2 ---
Subjective Chemically sedated Reviewed: Care Plan, H&P, Labs, Medications Changes from previous H/P or p: No Changes General: Per HPI Respiratory: Shortness of breath Objective Vitals Vital Signs Date Time Temp Pulse Resp B/P (MAP) Pulse Ox O2 Delivery O2 Flow Rate FiO2 12/08/24 09:30 99.0 90 22 149/67 (94) 96 210.2 12/08/24 08:44 30 12/08/24 08:00 Mechanical Ventilator+ Intake/Output Intake and Output 12/08/24 07:00 Intake Total 2437.06 ml Output Total 1950 ml Balance 487.06 ml Intake Oral 110 ml IV Total 2327.06 ml Output Urine Total 1850 ml Stool Total 0 ml Gastric Drainage Total 100 ml General Appearance: mild distress, Other (Chemically sedated) HEENT: Atraumatic, PERRLA Lungs: Clear to auscultation, Normal air movement, Other (Mechanical ventilation) Cardiovascular: Normal S1, Normal S2 Abdomen: Normal bowel sounds, Soft, No tenderness Genitourinary: No Apparent Abnormalities Musculoskeletal: Normal sensory function, Normal motor function Extremities: No clubbing, No cyanosis Skin: Dry, Intact Psych/Mental Status: Other (Unable to assess) Medications Current Medications Medications Dose Ordered Sig/Aren Route Start Time Stop Time Status Last Admin Dose Admin Propofol 100 ml @ 4.41 mls/hr [id number] IV 12/02/24 06:45 12/08/24 07:40 30.87 MLS/HR Fentanyl Citrate 250 ml @ 2.5 mls/hr Q24H IV 12/02/24 06:45 12/07/24 22:27 10 MLS/HR Norepinephrine Bitartrate 250 ml @ 3.75 mls/hr Q24H IV 12/02/24 06:45 12/02/24 09:00 3.75 MLS/HR Ondansetron HCl 4 mg Q4HP PRN IV 12/02/24 10:15 Enoxaparin Sodium 40 mg DAILY SC 12/03/24 10:00 12/08/24 10:00 40 MG Acetaminophen 650 mg Q6HP PRN PO 12/02/24 10:15 Nitroglycerin 0.4 mg Q5MINP PRN SL 12/02/24 10:15 Albuterol 2.5 mg Q6HWA NEB 12/02/24 12:00 12/08/24 06:00 2.5 MG Ipratropium [place] 0.5 mg Q6HWA NEB 12/02/24 12:00 12/08/24 06:00 0.5 MG Ceftriaxone Sodium 50 ml @ 100 mls/hr DAILY@09 IV 12/03/24 09:00 12/08/24 09:59 100 MLS/HR Albuterol 2.5 mg Q2HPRN PRN NEB 12/04/24 10:15 12/08/24 00:01 2.5 MG Budesonide 0.5 mg BID NEB 12/04/24 22:00 12/08/24 06:32 0.5 MG Sodium Chloride 10 ml QSHIFT@, IV 12/04/24 22:00 12/08/24 09:59 10 ML Dextrose/Sodium Chloride 1,000 ml @ 75 mls/hr [id number] IV 12/06/24 21:00 12/08/24 01:35 75 MLS/HR Methylprednisolone Sodium Succinate 40 mg DAILY IV 12/08/24 10:00 12/08/24 10:00 40 MG Pantoprazole Sodium 40 mg DAILY IV 12/07/24 10:45 12/08/24 09:59 40 MG Docusate Sodium 100 mg BID PRN GT 12/07/24 20:00 12/08/24 05:35 100 MG Hydralazine HCl 10 mg Q6HP PRN IV 12/08/24 09:30 UNV Nicardipine/ Sodium Chloride 200 ml @ 50 mls/hr Q4H IV 12/08/24 09:30 UNV Hydroxyzine HCl 10 mg Q6HP PRN PO 12/08/24 09:30 UNV Laboratory Results Laboratory Tests 12/08/24 04:56 Chemistry Test 12/08/24 04:56 Albumin 3.8 g/dL (3.2-4.8) Calcium Level 8.8 mg/dL (8.7-10.4) Magnesium Level 2.7 mg/dL (1.6-2.6) H Total Protein 5.7 g/dL (5.7-8.2) LFT Test 12/08/24 04:56 Alanine Aminotransferase (ALT) 84 U/L (7-40) H Alkaline Phosphatase 57 U/L (46-116) Aspartate Amino Transferase (AST) 54 U/L (13-40) H Total Bilirubin 0.5 mg/dL (0.2-1.0) Urinalysis Test 12/02/24 07:12 Urine Color Light-yellow (Yellow) Urine Clarity Clear (Clear) Urine pH 5.0 (5.0-9.0) Urine Specific [place] 1.015 (1.001-1.035) Urine Protein Negative (Negative) Urine Ketones Negative (Negative) Urine Blood Negative /uL (Negative) Urine Nitrite Negative (Negative) Urine Bilirubin Negative (Negative) Urine Urobilinogen Normal mg/dL (Negative) Urine Leukocyte Esterase Negative /uL (Negative) Urine RBC 1 /hpf (0 - 4) Urine Microscopic WBC 3 /HPF (0-5) Urine Squamous Epithelial Cells Few /hpf (<5) Urine Bacteria None seen /hpf (None Seen) Urine Mucus Few (None Seen) Urine Glucose Normal mg/dL (Normal) Blood Gas Results Test 12/08/24 07:24 Arterial Blood pH 7.457 (7.350-7.450) FiO2 % 30.0 Microbiology Microbiology Date/Time Source Procedure Growth Status 12/05/24 09:22 Catheter Tip Aerobic Culture - Preliminary Resulted 12/04/24 15:01 Blood Blood Culture - Preliminary NO GROWTH AFTER 72 HOURS OF INCUBATION. Resulted 12/03/24 11:49 Urine - [place] Urine Culture - Final Complete 12/02/24 06:25 Sputum Gram Stain - Final Complete 12/02/24 06:25 Sputum Respiratory Culture - Final Complete Labs and/or images reviewed: Labs reviewed by me, Image(s) reviewed by me Assessment/Plan Assessment/Plan Impression: -acute hypoxic respiratory failure -asthma exacerbation -morbid obesity -NSTEMI, probably type 2 -Leukocytosis, rule out sepsis given positive blood culture. Questionable contamination Course of hospitalization: Events: Attempt SBT. Use Precedex -continue current vent settings -PUD, DVT prophylaxis -echocardiogram : Reviewed, unremarkable -plan of care discussed with the patient's daughter who were there were bedside. All questions answered. -repeat labs, chest x-ray, ABG in a.m. Critical care time spent with patient discussing and formulating plan of care: 40 minutes. This does not include time spent performing procedures. This medical document was created using an electronic medical record system with [employer] system. Although this document has been carefully reviewed, there may still be some phonetic and typographical errors. These areas are purely typographical due to imperfections of the software programs, and do not reflect any compromise in the patient's medical care. Plan discussed with: Patient, Other (RN) My Orders Orders - SHANICE DELEON NP Procedure Category Date Status Time Abg W/ Co-Ox RT 12/07/24 Logged 08:00 Methylprednisolone PHA 12/08/24 In Process Sod Succ (Solu Medrol 10:00 Pantoprazole PHA 12/07/24 In Process (Protonix) 10:45 Cpap Trial For Am ORDERS 12/07/24 Transmitted 10:00 Cpap/Sed Vacation Med ORDERS 12/07/24 Transmitted Weaning 10:00 Abg W/ Co-Ox RT 12/08/24 Logged 04:00 Chest Xray 1 View XY 12/08/24 Resulted 04:00 Docusate Sodium PHA 12/07/24 In Process Liquid (Colace Liquid) 20:00 Cpap/Sed Vacation Med ORDERS 12/08/24 Transmitted Weaning 09:17 Communication Order ORDERS 12/08/24 Transmitted 09:17 Basic Metabolic Panel LAB 12/09/24 Verified 04:00 Complete Blood Count LAB 12/09/24 Verified 04:00 Hydralazine Injection PHA 12/08/24 Logged (Apresoline Inject 09:30 Nicardipine 20 Mg/200 PHA 12/08/24 Logged Ml (Cardene Iv) 09:30 Hydroxyzine Oral PHA 12/08/24 Logged (Vistaril Oral) 09:30 Date of Service: Dec 08, 2024 Billing Provider: SHANICE DELEON NP Common Visit Codes: 29556-EYH/OBS DISCH DAY >30min SHANICE DELEON NP Dec 08, 2024 10:24
[2024-12-08] MEDS: hydrOXYzine HCL 10 MG TAB PO PRN (12:14)
[2024-12-08] MEDS: hydrALAZINE HCL 20 MG/ML VL IV PRN (14:36)
[2024-12-08] MEDS ORDERED: Jevity 1.2 Cal/Fiber 1 Liter GT SCH (14:45)
[2024-12-09] VITALS (106 sets, daily range): BP systolic 99–147; BP diastolic 26–76; PULSE 57–120; RESP 10–33; TEMP 96.8–99.1; O2SAT 89–96
[2024-12-09 05:19] LABS: Hematocrit 37.0 % (36.0-46.0); Hemoglobin 12.4 g/dL (12.2-16.2); Mean Corpuscular Hemoglobin 31.2 pg (28.0-32.0); Mean Corpuscular Volume 93.2 fL (80.0-100.0); Nucleated Red Blood Cells % 0.1 %
[2024-12-09 05:20] LABS: Potassium 4.8 mmol/L (3.5-5.1); Sodium 145 mmol/L (136-145)
[2024-12-09 05:21] LABS: Anion Gap 8 (5-15); Carbon Dioxide 26 mmol/L (20-31)
[2024-12-09 05:26] LABS: BUN/Creatinine Ratio 51.4 (10.0-20.0); Glucose 105 mg/dL (74-106)
[2024-12-09 05:27] LABS: Blood Urea Nitrogen 38 mg/dL (9-23); Calcium 8.5 mg/dL (8.7-10.4); Chloride 111 mmol/L (98-107)
[2024-12-09 06:46] LABS: Base Excess -2.5 mmol/L (-2.0-3.0)
--- NOTE | 2024-12-09 08:20 | DVHPN2 ---
Subjective Chemically sedated Reviewed: Care Plan, H&P, Labs, Medications Changes from previous H/P or p: No Changes General: Per HPI Respiratory: Shortness of breath Objective Vitals Vital Signs Date Time Temp Pulse Resp B/P (MAP) Pulse Ox O2 Delivery O2 Flow Rate FiO2 12/09/24 06:16 60 23 114/57 (76) 96 40 12/09/24 06:15 98.4 209.1 12/09/24 06:00 Mechanical Ventilator+ Intake/Output Intake and Output 12/09/24 07:00 Intake Total 2439.37 ml Output Total 2250 ml Balance 189.37 ml Intake Oral 0 ml IV Total 2439.37 ml Output Urine Total 2250 ml Stool Total 0 ml General Appearance: mild distress, Other (Chemically sedated) HEENT: Atraumatic, PERRLA Lungs: Clear to auscultation, Normal air movement, Other (Mechanical ventilation) Cardiovascular: Normal S1, Normal S2 Abdomen: Normal bowel sounds, Soft, No tenderness Genitourinary: No Apparent Abnormalities Musculoskeletal: Normal sensory function, Normal motor function Extremities: No clubbing, No cyanosis Skin: Dry, Intact Psych/Mental Status: Other (Unable to assess) Medications Current Medications Medications Dose Ordered Sig/Aren Route Start Time Stop Time Status Last Admin Dose Admin Propofol 100 ml @ 4.41 mls/hr [id number] IV 12/02/24 06:45 12/09/24 05:32 17.64 MLS/HR Fentanyl Citrate 250 ml @ 2.5 mls/hr Q24H IV 12/02/24 06:45 12/07/24 22:27 10 MLS/HR Norepinephrine Bitartrate 250 ml @ 3.75 mls/hr Q24H IV 12/02/24 06:45 12/02/24 09:00 3.75 MLS/HR Ondansetron HCl 4 mg Q4HP PRN IV 12/02/24 10:15 Enoxaparin Sodium 40 mg DAILY SC 12/03/24 10:00 12/08/24 10:00 40 MG Acetaminophen 650 mg Q6HP PRN PO 12/02/24 10:15 Nitroglycerin 0.4 mg Q5MINP PRN SL 12/02/24 10:15 Albuterol 2.5 mg Q6HWA NEB 12/02/24 12:00 12/09/24 06:16 2.5 MG Ipratropium [place] 0.5 mg Q6HWA NEB 12/02/24 12:00 12/09/24 06:16 0.5 MG Ceftriaxone Sodium 50 ml @ 100 mls/hr DAILY@09 IV 12/03/24 09:00 12/08/24 09:59 100 MLS/HR Albuterol 2.5 mg Q2HPRN PRN NEB 12/04/24 10:15 12/08/24 00:01 2.5 MG Budesonide 0.5 mg BID NEB 12/04/24 22:00 12/09/24 06:16 0.5 MG Sodium Chloride 10 ml QSHIFT@ IV 12/04/24 22:00 12/08/24 22:00 10 ML Dextrose/Sodium Chloride 1,000 ml @ 75 mls/hr [id number] IV 12/06/24 21:00 12/09/24 04:00 75 MLS/HR Methylprednisolone Sodium Succinate 40 mg DAILY IV 12/08/24 10:00 12/08/24 10:00 40 MG Pantoprazole Sodium 40 mg DAILY IV 12/07/24 10:45 12/08/24 09:59 40 MG Docusate Sodium 100 mg BID PRN GT 12/07/24 20:00 12/08/24 05:35 100 MG Hydralazine HCl 10 mg Q6HP PRN IV 12/08/24 09:30 12/08/24 14:36 10 MG Nicardipine/ Sodium Chloride 200 ml @ 50 mls/hr Q4H IV 12/08/24 09:30 12/09/24 04:01 25 MLS/HR Enteral Nutritional Formula 1,000 ml 30ML/HR GT 12/08/24 15:15 Hydroxyzine HCl 10 mg Q6H PO 12/09/24 12:00 UNV Laboratory Results Laboratory Tests 12/09/24 04:35 Chemistry Test 12/09/24 04:35 Calcium Level 8.5 mg/dL (8.7-10.4) L Urinalysis Test 12/02/24 07:12 Urine Color Light-yellow (Yellow) Urine Clarity Clear (Clear) Urine pH 5.0 (5.0-9.0) Urine Specific [place] 1.015 (1.001-1.035) Urine Protein Negative (Negative) Urine Ketones Negative (Negative) Urine Blood Negative /uL (Negative) Urine Nitrite Negative (Negative) Urine Bilirubin Negative (Negative) Urine Urobilinogen Normal mg/dL (Negative) Urine Leukocyte Esterase Negative /uL (Negative) Urine RBC 1 /hpf (0 - 4) Urine Microscopic WBC 3 /HPF (0-5) Urine Squamous Epithelial Cells Few /hpf (<5) Urine Bacteria None seen /hpf (None Seen) Urine Mucus Few (None Seen) Urine Glucose Normal mg/dL (Normal) Blood Gas Results Test 12/09/24 06:40 Arterial Blood pH 7.432 (7.350-7.450) FiO2 % 40.0 Microbiology Microbiology Date/Time Source Procedure Growth Status 12/05/24 09:22 Catheter Tip Aerobic Culture - Final Morganella morganii Staphylococcus lugdunensis Complete 12/04/24 15:01 Blood Blood Culture - Preliminary NO GROWTH AFTER 72 HOURS OF INCUBATION. Resulted 12/03/24 11:49 Urine - [place] Urine Culture - Final Complete 12/02/24 06:25 Sputum Gram Stain - Final Complete 12/02/24 06:25 Sputum Respiratory Culture - Final Complete Labs and/or images reviewed: Labs reviewed by me, Image(s) reviewed by me Assessment/Plan Assessment/Plan Impression: -acute hypoxic respiratory failure -asthma exacerbation -morbid obesity -NSTEMI, probably type 2 -Leukocytosis, rule out sepsis given positive blood culture. Questionable contamination Course of hospitalization: Events: Patient continues to be slow to awaken and follow commands. Patient noted to have high anxiety with sedation off. Blood pressure better controlled now on nicardipine drip. Continue attempts to wean patient off of ventilator using hydroxyzine via G-tube as well as Precedex drip. -continue current vent settings -PUD, DVT prophylaxis -tube feedings to be continued, pause for a CPAP trial -repeat labs, chest x-ray, ABG in a.m. Critical care time spent with patient discussing and formulating plan of care: 40 minutes. This does not include time spent performing procedures. This medical document was created using an electronic medical record system with [employer] system. Although this document has been carefully reviewed, there may still be some phonetic and typographical errors. These areas are purely typographical due to imperfections of the software programs, and do not reflect any compromise in the patient's medical care. Plan discussed with: Patient, Other (RN) My Orders Orders - SHANICE DELEON NP Procedure Category Date Status Time Cpap/Sed Vacation Med ORDERS 12/08/24 Transmitted Weaning 09:17 Communication Order ORDERS 12/08/24 Transmitted 09:17 Hydralazine Injection PHA 12/08/24 In Process (Apresoline Inject 09:30 Nicardipine 20 Mg/200 PHA 12/08/24 In Process Ml (Cardene Iv) 09:30 Nutritional PHA 12/08/24 In Process Supplements (Vital Af 15:15 Abg W/ Co-Ox RT 12/09/24 Logged 06:00 Hydroxyzine Oral PHA 12/09/24 Logged (Vistaril Oral) 12:00 Cpap Trial For Am ORDERS 12/09/24 Transmitted 07:00 Date of Service: Dec 09, 2024 Billing Provider: SHANICE DELEON NP Common Visit Codes: 00405-UCU/OBS DISCH DAY >30min SHANICE DELEON NP Dec 09, 2024 08:20
[2024-12-09] MEDS: hydrOXYzine HCL 10 MG TAB PO SCH (10:45)
[2024-12-09] MEDS: Vital AF 1.2 Cal 1 liter bottle GT SCH (17:45)
[2024-12-10] VITALS (105 sets, daily range): BP systolic 120–159; BP diastolic 60–81; PULSE 62–127; RESP 10–31; TEMP 91.6–100.2; O2SAT 93–97
[2024-12-10 05:36] LABS: Hematocrit 36.4 % (36.0-46.0); Hemoglobin 12.6 g/dL (12.2-16.2); Mean Corpuscular Hemoglobin 32.0 pg (28.0-32.0); Mean Corpuscular Volume 92.3 fL (80.0-100.0)
[2024-12-10 05:58] LABS: Anion Gap 8 (5-15); Carbon Dioxide 23 mmol/L (20-31); Potassium 4.9 mmol/L (3.5-5.1); Sodium 141 mmol/L (136-145)
[2024-12-10 06:04] LABS: BUN/Creatinine Ratio 42.6 (10.0-20.0)
[2024-12-10 06:09] LABS: Blood Urea Nitrogen 29 mg/dL (9-23); Calcium 8.5 mg/dL (8.7-10.4); Chloride 110 mmol/L (98-107); Glucose 128 mg/dL (74-106)
[2024-12-10 06:57] LABS: Total Cells Counted 100.0 (100)
[2024-12-10 07:50] LABS: Base Excess -1.9 mmol/L (-2.0-3.0)
--- NOTE | 2024-12-10 10:24 | DVHPN2 ---
Subjective Chemically sedated Reviewed: Care Plan, H&P, Labs, Medications Changes from previous H/P or p: No Changes General: Per HPI Respiratory: Shortness of breath Objective Vitals Vital Signs Date Time Temp Pulse Resp B/P (MAP) Pulse Ox O2 Delivery O2 Flow Rate FiO2 12/10/24 09:20 137/74 12/10/24 07:56 67 22 96 50 12/10/24 07:00 97.9 208.2 12/10/24 06:00 Mechanical Ventilator+ Intake/Output Intake and Output 12/10/24 07:00 Intake Total 3263.66 ml Output Total 1675 ml Balance 1588.66 ml IV Total 3163.66 ml Tube Feeding 100 ml Output Urine Total 1675 ml Stool Total 0 ml General Appearance: mild distress, Other (Chemically sedated) HEENT: Atraumatic, PERRLA Lungs: Clear to auscultation, Normal air movement, Other (Mechanical ventilation) Cardiovascular: Normal S1, Normal S2 Abdomen: Normal bowel sounds, Soft, No tenderness Genitourinary: No Apparent Abnormalities Musculoskeletal: Normal sensory function, Normal motor function Extremities: No clubbing, No cyanosis Skin: Dry, Intact Psych/Mental Status: Other (Unable to assess) Medications Current Medications Medications Dose Ordered Sig/Aren Route Start Time Stop Time Status Last Admin Dose Admin Propofol 100 ml @ 4.41 mls/hr [id number] IV 12/02/24 06:45 12/10/24 04:46 26.46 MLS/HR Fentanyl Citrate 250 ml @ 2.5 mls/hr Q24H IV 12/02/24 06:45 12/09/24 15:32 2.5 MLS/HR Norepinephrine Bitartrate 250 ml @ 3.75 mls/hr Q24H IV 12/02/24 06:45 12/02/24 09:00 3.75 MLS/HR Ondansetron HCl 4 mg Q4HP PRN IV 12/02/24 10:15 Enoxaparin Sodium 40 mg DAILY SC 12/03/24 10:00 12/09/24 10:13 40 MG Acetaminophen 650 mg Q6HP PRN PO 12/02/24 10:15 Nitroglycerin 0.4 mg Q5MINP PRN SL 12/02/24 10:15 Albuterol 2.5 mg Q6HWA NEB 12/02/24 12:00 12/10/24 06:16 2.5 MG Ipratropium [place] 0.5 mg Q6HWA NEB 12/02/24 12:00 12/10/24 06:15 0.5 MG Albuterol 2.5 mg Q2HPRN PRN NEB 12/04/24 10:15 12/08/24 00:01 2.5 MG Budesonide 0.5 mg BID NEB 12/04/24 22:00 12/10/24 06:16 0.5 MG Sodium Chloride 10 ml QSHIFT@10,22 IV 12/04/24 22:00 12/09/24 21:16 10 ML Dextrose/Sodium Chloride 1,000 ml @ 75 mls/hr [id number] IV 12/06/24 21:00 12/10/24 06:04 75 MLS/HR Methylprednisolone Sodium Succinate 40 mg DAILY IV 12/08/24 10:00 12/09/24 10:13 40 MG Pantoprazole Sodium 40 mg DAILY IV 12/07/24 10:45 12/09/24 10:13 40 MG Docusate Sodium 100 mg BID PRN GT 12/07/24 20:00 12/10/24 05:57 100 MG Hydralazine HCl 10 mg Q6HP PRN IV 12/08/24 09:30 12/08/24 14:36 10 MG Nicardipine/ Sodium Chloride 200 ml @ 50 mls/hr Q4H IV 12/08/24 09:30 12/10/24 09:20 50 MLS/HR Enteral Nutritional Formula 1,000 ml 30ML/HR GT 12/08/24 15:15 12/09/24 17:45 1,000 ML Hydroxyzine HCl 10 mg Q6H PO 12/09/24 10:00 12/10/24 04:45 10 MG Levofloxacin/ Dextrose 100 ml @ 100 mls/hr DAILY IV 12/09/24 10:00 12/09/24 10:13 100 MLS/HR Laboratory Results Laboratory Tests 12/10/24 04:47 Chemistry Test 12/10/24 04:47 Calcium Level 8.5 mg/dL (8.7-10.4) L Urinalysis Test 12/02/24 07:12 Urine Color Light-yellow (Yellow) Urine Clarity Clear (Clear) Urine pH 5.0 (5.0-9.0) Urine Specific [place] 1.015 (1.001-1.035) Urine Protein Negative (Negative) Urine Ketones Negative (Negative) Urine Blood Negative /uL (Negative) Urine Nitrite Negative (Negative) Urine Bilirubin Negative (Negative) Urine Urobilinogen Normal mg/dL (Negative) Urine Leukocyte Esterase Negative /uL (Negative) Urine RBC 1 /hpf (0 - 4) Urine Microscopic WBC 3 /HPF (0-5) Urine Squamous Epithelial Cells Few /hpf (<5) Urine Bacteria None seen /hpf (None Seen) Urine Mucus Few (None Seen) Urine Glucose Normal mg/dL (Normal) Blood Gas Results Test 12/10/24 07:37 Arterial Blood pH 7.419 (7.350-7.450) FiO2 % 50.0 Microbiology Microbiology Date/Time Source Procedure Growth Status 12/05/24 09:22 Catheter Tip Aerobic Culture - Final Morganella morganii Staphylococcus lugdunensis Complete 12/04/24 15:01 Blood Blood Culture - Final NO GROWTH AFTER 5 DAYS OF INCUBATION. Complete 12/03/24 11:49 Urine - [place] Urine Culture - Final Complete 12/02/24 06:25 Sputum Gram Stain - Final Complete 12/02/24 06:25 Sputum Respiratory Culture - Final Complete Labs and/or images reviewed: Labs reviewed by me, Image(s) reviewed by me Assessment/Plan Assessment/Plan Impression: -acute hypoxic respiratory failure -asthma exacerbation -morbid obesity -NSTEMI, probably type 2 -Leukocytosis, rule out sepsis given positive blood culture. Questionable contamination Course of hospitalization: Events: Patient is following commands for my assessment. Hemodynamically stable. Decreased FiO2 to 45%. Please proceed with spontaneous breathing trial once patient is awake. -continue current vent settings -PUD, DVT prophylaxis -tube feedings to be continued, pause for a CPAP trial -repeat labs, chest x-ray, ABG in a.m. Critical care time spent with patient discussing and formulating plan of care: 40 minutes. This does not include time spent performing procedures. This medical document was created using an electronic medical record system with [employer] system. Although this document has been carefully reviewed, there may still be some phonetic and typographical errors. These areas are purely typographical due to imperfections of the software programs, and do not reflect any compromise in the patient's medical care. Plan discussed with: Patient, Other (RN) My Orders Orders - SHANICE DELEON NP Procedure Category Date Status Time Abg W/ Co-Ox RT 12/10/24 Logged 06:00 Cpap/Sed Vacation Med ORDERS 12/10/24 Transmitted Weaning 10:19 Cpap Trial For Am ORDERS 12/10/24 Transmitted 10:19 Basic Metabolic Panel LAB 12/11/24 Verified 05:00 Basic Metabolic Panel LAB 12/12/24 Verified 05:00 Basic Metabolic Panel LAB 12/13/24 Verified 05:00 Complete Blood Count LAB 12/11/24 Verified 05:00 Complete Blood Count LAB 12/12/24 Verified 05:00 Complete Blood Count LAB 12/13/24 Verified 05:00 Date of Service: Dec 10, 2024 Billing Provider: SHANICE DELEON NP Common Visit Codes: [id number] CARE 30-74 MIN SHANICE DELEON NP Dec 10, 2024 10:24
[2024-12-11] VITALS (100 sets, daily range): BP systolic 112–191; BP diastolic 54–141; PULSE 53–134; RESP 10–35; TEMP 96.4–99.6; O2SAT 92–99
[2024-12-11 05:31] LABS: Hematocrit 36.1 % (36.0-46.0); Hemoglobin 12.7 g/dL (12.2-16.2); Mean Corpuscular Hemoglobin 32.3 pg (28.0-32.0); Mean Corpuscular Volume 92.2 fL (80.0-100.0); Nucleated Red Blood Cells % 0.1 %
[2024-12-11 05:41] LABS: Anion Gap 12 (5-15); Carbon Dioxide 21 mmol/L (20-31); Chloride 107 mmol/L (98-107); Potassium 4.4 mmol/L (3.5-5.1); Sodium 140 mmol/L (136-145)
[2024-12-11 05:47] LABS: BUN/Creatinine Ratio 36.6 (10.0-20.0); Blood Urea Nitrogen 26 mg/dL (9-23); Calcium 8.6 mg/dL (8.7-10.4); Glucose 147 mg/dL (74-106)
[2024-12-11 06:43] LABS: Base Excess -4.5 mmol/L (-2.0-3.0)
[2024-12-11 08:35] LABS: Base Excess -3.3 mmol/L (-2.0-3.0)
--- NOTE | 2024-12-11 09:23 | DVHPN2 ---
Subjective Patient awake and following commands. Reviewed: Care Plan, H&P, Labs, Medications Changes from previous H/P or p: No Changes General: Per HPI Respiratory: Shortness of breath Objective Vitals Vital Signs Date Time Temp Pulse Resp B/P (MAP) Pulse Ox O2 Delivery O2 Flow Rate FiO2 12/11/24 09:00 97.5 104 16 147/54 (85) 96 97.5 12/11/24 08:42 30 12/11/24 08:00 Mechanical Ventilator+ Intake/Output Intake and Output 12/11/24 07:00 Intake Total 4454.13 ml Output Total 2550 ml Balance 1904.13 ml Intake Oral 140 ml IV Total 4264.13 ml Tube Feeding 50 ml Output Urine Total 2550 ml Stool Total 0 ml General Appearance: Alert, mild distress HEENT: Atraumatic, PERRLA Lungs: Clear to auscultation, Normal air movement, Other (Mechanical ventilation) Cardiovascular: Normal S1, Normal S2 Abdomen: Normal bowel sounds, Soft, No tenderness Genitourinary: No Apparent Abnormalities Musculoskeletal: Normal sensory function, Normal motor function Extremities: No clubbing, No cyanosis Skin: Dry, Intact Psych/Mental Status: Other (Anxious) Medications Current Medications Medications Dose Ordered Sig/Aren Route Start Time Stop Time Status Last Admin Dose Admin Propofol 100 ml @ 4.41 mls/hr [id number] IV 12/02/24 06:45 12/11/24 04:44 30.87 MLS/HR Fentanyl Citrate 250 ml @ 2.5 mls/hr Q24H IV 12/02/24 06:45 12/09/24 15:32 2.5 MLS/HR Norepinephrine Bitartrate 250 ml @ 3.75 mls/hr Q24H IV 12/02/24 06:45 12/02/24 09:00 3.75 MLS/HR Ondansetron HCl 4 mg Q4HP PRN IV 12/02/24 10:15 Enoxaparin Sodium 40 mg DAILY SC 12/03/24 10:00 12/11/24 07:44 40 MG Acetaminophen 650 mg Q6HP PRN PO 12/02/24 10:15 Nitroglycerin 0.4 mg Q5MINP PRN SL 12/02/24 10:15 Albuterol 2.5 mg Q6HWA NEB 12/02/24 12:00 12/11/24 05:59 2.5 MG Ipratropium [place] 0.5 mg Q6HWA NEB 12/02/24 12:00 12/11/24 05:59 0.5 MG Albuterol 2.5 mg Q2HPRN PRN NEB 12/04/24 10:15 12/11/24 02:33 2.5 MG Budesonide 0.5 mg BID NEB 12/04/24 22:00 12/11/24 05:59 0.5 MG Sodium Chloride 10 ml QSHIFT@10,22 IV 12/04/24 22:00 12/11/24 07:44 10 ML Dextrose/Sodium Chloride 1,000 ml @ 75 mls/hr [id number] IV 12/06/24 21:00 12/10/24 19:47 75 MLS/HR Methylprednisolone Sodium Succinate 40 mg DAILY IV 12/08/24 10:00 12/11/24 07:44 40 MG Pantoprazole Sodium 40 mg DAILY IV 12/07/24 10:45 12/11/24 07:44 40 MG Docusate Sodium 100 mg BID PRN GT 12/07/24 20:00 12/11/24 06:10 100 MG Hydralazine HCl 10 mg Q6HP PRN IV 12/08/24 09:30 12/08/24 14:36 10 MG Nicardipine/ Sodium Chloride 200 ml @ 50 mls/hr Q4H IV 12/08/24 09:30 12/11/24 04:44 50 MLS/HR Enteral Nutritional Formula 1,000 ml 30ML/HR GT 12/08/24 15:15 12/09/24 17:45 1,000 ML Hydroxyzine HCl 10 mg Q6H PO 12/09/24 10:00 12/11/24 07:44 10 MG Levofloxacin/ Dextrose 100 ml @ 100 mls/hr DAILY IV 12/09/24 10:00 12/11/24 07:43 100 MLS/HR Laboratory Results Laboratory Tests 12/11/24 05:05 Chemistry Test 12/11/24 05:05 Calcium Level 8.6 mg/dL (8.7-10.4) L Urinalysis Test 12/02/24 07:12 Urine Color Light-yellow (Yellow) Urine Clarity Clear (Clear) Urine pH 5.0 (5.0-9.0) Urine Specific [place] 1.015 (1.001-1.035) Urine Protein Negative (Negative) Urine Ketones Negative (Negative) Urine Blood Negative /uL (Negative) Urine Nitrite Negative (Negative) Urine Bilirubin Negative (Negative) Urine Urobilinogen Normal mg/dL (Negative) Urine Leukocyte Esterase Negative /uL (Negative) Urine RBC 1 /hpf (0 - 4) Urine Microscopic WBC 3 /HPF (0-5) Urine Squamous Epithelial Cells Few /hpf (<5) Urine Bacteria None seen /hpf (None Seen) Urine Mucus Few (None Seen) Urine Glucose Normal mg/dL (Normal) Blood Gas Results Test 12/11/24 06:17 12/11/24 08:30 Arterial Blood pH 7.396 (7.350-7.450) 7.422 (7.350-7.450) FiO2 % 45.0 30.0 Microbiology Microbiology Date/Time Source Procedure Growth Status 12/05/24 09:22 Catheter Tip Aerobic Culture - Final Morganella morganii Staphylococcus lugdunensis Complete 12/04/24 15:01 Blood Blood Culture - Final NO GROWTH AFTER 5 DAYS OF INCUBATION. Complete 12/03/24 11:49 Urine - [place] Urine Culture - Final Complete 12/02/24 06:25 Sputum Gram Stain - Final Complete 12/02/24 06:25 Sputum Respiratory Culture - Final Complete Labs and/or images reviewed: Labs reviewed by me, Image(s) reviewed by me Assessment/Plan Assessment/Plan Impression: -acute hypoxic respiratory failure -asthma exacerbation -morbid obesity -NSTEMI, probably type 2 -Leukocytosis, rule out sepsis given positive blood culture. Questionable contamination Course of hospitalization: Events: Patient on CPAP trial, orders given for extubation. -bowel regimen -PUD, DVT prophylaxis -weaned off Precedex once patient is extubated, continue hydroxyzine -repeat labs, chest x-ray, ABG in a.m. Critical care time spent with patient discussing and formulating plan of care: 40 minutes. This does not include time spent performing procedures. This medical document was created using an electronic medical record system with [employer] system. Although this document has been carefully reviewed, there may still be some phonetic and typographical errors. These areas are purely typographical due to imperfections of the software programs, and do not reflect any compromise in the patient's medical care. Plan discussed with: Patient, Other (RN) My Orders Orders - SHANICE DELEON NP Procedure Category Date Status Time Cpap/Sed Vacation Med ORDERS 12/10/24 Transmitted Weaning 10:19 Cpap Trial For Am ORDERS 12/10/24 Transmitted 10:19 Basic Metabolic Panel LAB 12/12/24 Verified 05:00 Basic Metabolic Panel LAB 12/13/24 Verified 05:00 Complete Blood Count LAB 12/12/24 Verified 05:00 Complete Blood Count LAB 12/13/24 Verified 05:00 Abg W/ Co-Ox RT 12/11/24 Logged 06:00 Chest Xray 1 View XY 12/12/24 Logged 05:00 Chest Xray 1 View XY 12/13/24 Logged 05:00 Chest Xray 1 View XY 12/14/24 Logged 05:00 Abg W/ Co-Ox RT 12/11/24 Logged 08:30 Extubate ZANDER 12/11/24 In Process 09:00 Furosemide Injection PHA 12/11/24 Transmitted (Lasix Injection) 09:30 Lactulose Oral PHA 12/11/24 Transmitted 10:00 Date of Service: Dec 11, 2024 Billing Provider: SHANICE DELEON NP Common Visit Codes: [id number] CARE 30-74 MIN SHANICE DELEON NP Dec 11, 2024 09:23
[2024-12-11] MEDS: LACTULOSE 20Gm/30ML SOLN PO SCH (10:00)
[2024-12-11] MEDS: EPINEPHrine HCL 0.5 ML NEB ONE (10:06)
[2024-12-11] MEDS: FUROSEMIDE 20 MG/2 ML VIAL IV ONE (10:07)
[2024-12-11] MEDS: EPINEPHrine HCL 0.5 ML NEB NEB ONE ×2 (10:13→19:13)
[2024-12-11] MEDS: LORazepam 2MG/ML-1ML VIAL IV PRN (10:33)
[2024-12-11] MEDS: MORPHINE SULFATE INJ 2 MG/ml SYRG IV PRN (13:19)
[2024-12-11] MEDS: HALOPERIDOL LACTATE 5 MG/ML INJ VIAL IM ONE (18:07)
[2024-12-11 19:09] LABS: Base Excess 0.4 mmol/L (-2.0-3.0)
[2024-12-11 20:11] LABS: Base Excess 0.2 mmol/L (-2.0-3.0)
[2024-12-12] VITALS (74 sets, daily range): BP systolic 100–196; BP diastolic 50–91; PULSE 16–119; RESP 13–26; TEMP 97.5–99.7; O2SAT 92–96
[2024-12-12 05:16] LABS: Hematocrit 38.2 % (36.0-46.0); Hemoglobin 12.8 g/dL (12.2-16.2); Mean Corpuscular Hemoglobin 31.0 pg (28.0-32.0); Mean Corpuscular Volume 92.3 fL (80.0-100.0)
[2024-12-12 05:25] LABS: Potassium 4.5 mmol/L (3.5-5.1); Sodium 140 mmol/L (136-145)
[2024-12-12 05:26] LABS: Anion Gap 9 (5-15); Carbon Dioxide 24 mmol/L (20-31)
[2024-12-12 05:27] LABS: Calcium 9.0 mg/dL (8.7-10.4)
[2024-12-12 05:31] LABS: Glucose 87 mg/dL (74-106)
[2024-12-12 05:32] LABS: BUN/Creatinine Ratio 31.9 (10.0-20.0); Blood Urea Nitrogen 22 mg/dL (9-23); Chloride 107 mmol/L (98-107); Magnesium 2.0 mg/dL (1.6-2.6)
--- NOTE | 2024-12-12 05:58 | DVH ---
CHEST RADIOGRAPH Indication: pna Technique: Single frontal view of the chest was obtained COMPARISON: XY CHEST XRAY 1 VIEW on DOS: 12/08/24, XY CHEST XRAY 1 VIEW on DOS: 12/07/24, XY CHEST PORTAB LE on DOS: 12/06/24, XY CHEST PORTABLE on DOS: 12/05/24, XY CHEST PORTABLE on DOS: 12/04/24 FINDINGS: Lines and Tubes: Status post interval extubation and removal of enteric catheter. Right peripherally inserted central catheter unchanged. Lungs: Diminished lung volumes with concomitant exaggeration of the pulmonary vasculature. No evidenc e of focal consolidation. Pleura: No effusion. No pneumothorax. Cardiomediastinal contours: Unremarkable Bones: Unremarkable IMPRESSION: 1. Status post interval extubation and removal of enteric catheter. Right PICC unchanged. 2. No evidence of acute cardiopulmonary disease.
[2024-12-12 06:25] LABS: Total Cells Counted 100.0 (100)
--- NOTE | 2024-12-12 13:30 | DVHPN2 ---
Progress Note - Dictate Date Seen: Dec 12, 2024 Medical Necessity Reason Pt with a Central, PICC or Fol: Yes The following are medically ne: Central Line vital signs Vital Sign Date Time Temp Pulse Resp B/P (MAP) Pulse Ox O2 Delivery O2 Flow Rate FiO2 12/12/24 13:16 114 24 93 12/12/24 12:50 Nasal Cannula 3.0 12/12/24 12:50 32 12/12/24 12:01 97.8 97.8 Total Intake and Output 12/11/24 12/11/24 12/12/24 15:00 23:00 07:00 Intake Total 322.17 ml 147.13 ml 389.70 ml Output Total 4920 ml 1800 ml Balance 322.17 ml -4772.87 ml -1410.30 ml medications Current Medications Medications Dose Ordered Sig/Aren Route Start Time Stop Time Status Last Admin Dose Admin Fentanyl Citrate 250 ml @ 2.5 mls/hr Q24H IV 12/02/24 06:45 12/09/24 15:32 2.5 MLS/HR Norepinephrine Bitartrate 250 ml @ 3.75 mls/hr Q24H IV 12/02/24 06:45 12/02/24 09:00 3.75 MLS/HR Ondansetron HCl 4 mg Q4HP PRN IV 12/02/24 10:15 Enoxaparin Sodium 40 mg DAILY SC 12/03/24 10:00 12/12/24 08:52 40 MG Acetaminophen 650 mg Q6HP PRN PO 12/02/24 10:15 Nitroglycerin 0.4 mg Q5MINP PRN SL 12/02/24 10:15 Albuterol 2.5 mg Q6HWA NEB 12/02/24 12:00 12/12/24 12:49 2.5 MG Ipratropium [place] 0.5 mg Q6HWA NEB 12/02/24 12:00 12/12/24 12:49 0.5 MG Albuterol 2.5 mg Q2HPRN PRN NEB 12/04/24 10:15 12/11/24 02:33 2.5 MG Budesonide 0.5 mg BID NEB 12/04/24 22:00 12/12/24 12:50 0.5 MG Sodium Chloride 10 ml QSHIFT@10,22 IV 12/04/24 22:00 12/12/24 08:51 10 ML Methylprednisolone Sodium Succinate 40 mg DAILY IV 12/08/24 10:00 12/12/24 08:51 40 MG Pantoprazole Sodium 40 mg DAILY IV 12/07/24 10:45 12/12/24 08:51 40 MG Hydralazine HCl 10 mg Q6HP PRN IV 12/08/24 09:30 12/12/24 11:52 10 MG Nicardipine/ Sodium Chloride 200 ml @ 50 mls/hr Q4H IV 12/08/24 09:30 12/12/24 06:45 50 MLS/HR Enteral Nutritional Formula 1,000 ml 30ML/HR GT 12/08/24 15:15 12/09/24 17:45 1,000 ML Levofloxacin/ Dextrose 100 ml @ 100 mls/hr DAILY IV 12/09/24 10:00 12/12/24 08:52 100 MLS/HR Lactulose 30 ml BID PO 12/11/24 10:00 12/12/24 08:52 30 ML Morphine Sulfate 1 mg Q4HP PRN IV 12/11/24 10:15 12/11/24 13:19 1 MG Lorazepam 1 mg Q8HP PRN IV 12/11/24 10:15 12/12/24 12:09 1 MG Amlodipine Besylate 10 mg DAILY PO 12/13/24 10:00 laboratory and microbiology Laboratory Tests 12/12/24 04:08 Test 12/12/24 04:08 Range/Units Serum Glucose 87 74-106 mg/dL Assessment/Plan Covering for Dr. [place] Impression Acute hypoxemic respiratory failure Multiple allergies Morbid obesity Asthma anaphylaxis Patient seen and examined in ICU Events S/p extubation following commands Labs and imaging reviewed ABG reviewed Management suppl 02 as needed titrate Continue antibiotics F/u cultures Bronchodilators Monitor renal function Monitor electrolytes Supplement as needed Pressors as needed for hemodynamic support To maintain a mean arterial pressure of 65 mmHg DVT prophylaxis Critical care time 35 minutes Dietary Evaluation Review Comments: Nutrition Recommendation: 1) TF Vital High Protein @ 50ml/hr x 24hr (goal rate) along with Pro-stat 1 pk BID. Start @ 20ml/hr, increase 10ml/hr Q4H until goal is reached. TF @ goal volume along with Pro-stat & Propofol provide 2564 kcal (100% energy needs), 135 gm protein (100% protein needs), 1003 ml free water. 2) Water flush 260ml Q4H if allowed, adjust PRN 3) TPN if NPO >7 days 4) Monitor NPO status, lab values, wt trend, I/O Expected Outcomes/Goals: To meet >75% estimated needs Lab values to improve Fu 2-3 days Plan discussed with: Patient MALLY LARA MD Dec 12, 2024 13:30
[2024-12-12] MEDS: ACETAMINOPHEN 325 MG TAB PO PRN (16:08)
--- NOTE | 2024-12-12 18:27 | DVHPN2 ---
Subjective Assuming the care of the patient from today onwards. Patient is currently in [facility] but has a tele downgraded orders. Reviewed: Care Plan, H&P, Labs, Medications Changes from previous H/P or p: No Changes General: Per HPI Respiratory: Shortness of breath Objective Vitals Vital Signs Date Time Temp Pulse Resp B/P (MAP) Pulse Ox O2 Delivery O2 Flow Rate FiO2 12/12/24 18:00 95 Nasal Cannula* 4 36 12/12/24 16:01 97.6 119 21 153/91 (111) 97.6 Intake/Output Intake and Output 12/12/24 07:00 Intake Total 859.00 ml Output Total 6720 ml Balance -5861.00 ml Intake Oral 40 ml IV Total 819.00 ml Output Urine Total 6720 ml Exam HEENT pupils are reactive Neck is supple CV is S1-S2 regular rate and rhythm Respiratory diminished breath sounds bilateral lung bases GI positive bowel sound Extremity no edema [employer] no motor deficit General Appearance: Alert, mild distress HEENT: Atraumatic, PERRLA Lungs: Clear to auscultation, Normal air movement, Other (Mechanical ventilation) Cardiovascular: Normal S1, Normal S2 Abdomen: Normal bowel sounds, Soft, No tenderness Genitourinary: No Apparent Abnormalities Musculoskeletal: Normal sensory function, Normal motor function Extremities: No clubbing, No cyanosis Skin: Dry, Intact Psych/Mental Status: Other (Anxious) Medications Current Medications Medications Dose Ordered Sig/Aren Route Start Time Stop Time Status Last Admin Dose Admin Ondansetron HCl 4 mg Q4HP PRN IV 12/02/24 10:15 Enoxaparin Sodium 40 mg DAILY SC 12/03/24 10:00 12/12/24 08:52 40 MG Acetaminophen 650 mg Q6HP PRN PO 12/02/24 10:15 12/12/24 16:08 650 MG Nitroglycerin 0.4 mg Q5MINP PRN SL 12/02/24 10:15 Albuterol 2.5 mg Q6HWA NEB 12/02/24 12:00 12/12/24 12:49 2.5 MG Ipratropium [place] 0.5 mg Q6HWA NEB 12/02/24 12:00 12/12/24 12:49 0.5 MG Albuterol 2.5 mg Q2HPRN PRN NEB 12/04/24 10:15 12/11/24 02:33 2.5 MG Budesonide 0.5 mg BID NEB 12/04/24 22:00 12/12/24 12:50 0.5 MG Sodium Chloride 10 ml QSHIFT@10,22 IV 12/04/24 22:00 12/12/24 08:51 10 ML Methylprednisolone Sodium Succinate 40 mg DAILY IV 12/08/24 10:00 12/12/24 08:51 40 MG Pantoprazole Sodium 40 mg DAILY IV 12/07/24 10:45 12/12/24 08:51 40 MG Hydralazine HCl 10 mg Q6HP PRN IV 12/08/24 09:30 12/12/24 11:52 10 MG Enteral Nutritional Formula 1,000 ml 30ML/HR GT 12/08/24 15:15 12/09/24 17:45 1,000 ML Levofloxacin/ Dextrose 100 ml @ 100 mls/hr DAILY IV 12/09/24 10:00 12/12/24 08:52 100 MLS/HR Lactulose 30 ml BID PO 12/11/24 10:00 12/12/24 08:52 30 ML Morphine Sulfate 1 mg Q4HP PRN IV 12/11/24 10:15 12/12/24 13:33 1 MG Lorazepam 1 mg Q8HP PRN IV 12/11/24 10:15 12/12/24 12:09 1 MG Amlodipine Besylate 10 mg DAILY PO 12/13/24 10:00 Laboratory Results Laboratory Tests 12/12/24 04:08 Chemistry Test 12/12/24 04:08 Calcium Level 9.0 mg/dL (8.7-10.4) Magnesium Level 2.0 mg/dL (1.6-2.6) Urinalysis Test 12/02/24 07:12 Urine Color Light-yellow (Yellow) Urine Clarity Clear (Clear) Urine pH 5.0 (5.0-9.0) Urine Specific [place] 1.015 (1.001-1.035) Urine Protein Negative (Negative) Urine Ketones Negative (Negative) Urine Blood Negative /uL (Negative) Urine Nitrite Negative (Negative) Urine Bilirubin Negative (Negative) Urine Urobilinogen Normal mg/dL (Negative) Urine Leukocyte Esterase Negative /uL (Negative) Urine RBC 1 /hpf (0 - 4) Urine Microscopic WBC 3 /HPF (0-5) Urine Squamous Epithelial Cells Few /hpf (<5) Urine Bacteria None seen /hpf (None Seen) Urine Mucus Few (None Seen) Urine Glucose Normal mg/dL (Normal) Blood Gas Results Test 12/11/24 18:56 12/11/24 19:53 Arterial Blood pH 7.510 (7.350-7.450) 7.497 (7.350-7.450) FiO2 % 100.0 80.0 Microbiology Microbiology Date/Time Source Procedure Growth Status 12/05/24 09:22 Catheter Tip Aerobic Culture - Final Morganella morganii Staphylococcus lugdunensis Complete 12/04/24 15:01 Blood Blood Culture - Final NO GROWTH AFTER 5 DAYS OF INCUBATION. Complete 12/03/24 11:49 Urine - [place] Urine Culture - Final Complete 12/02/24 06:25 Sputum Gram Stain - Final Complete 12/02/24 06:25 Sputum Respiratory Culture - Final Complete Assessment/Plan Assessment/Plan 49-year-old female with a known history of chronic asthma, mast cell syndrome, morbid obesity classIII who initially presented to the hospital with the increasing shortness a breath found to have 1. Acute hypoxic respiratory failure suspected secondary to acute asthma exacerbation status post intubation, status post extubation 2. Acute on chronic asthma exacerbation 3. Mouth cell disease/syndrome 4. NSTEMI likely type 2 5. Leukocytosis likely reactive 6. Sepsis suspected pneumonia 7. Morbid obesity classIII -continue IV antibiotics, med nebs, O2 supplementation, PT evaluation and treatment., downgraded to telemetry Plan discussed with: Patient My Orders Orders - KARENA PURCELL MD Procedure Category Date Status Time Pureed DIET 12/12/24 Transmitted Breakfast Date of Service: Dec 12, 2024 Billing Provider: KARENA PURCELL MD Common Visit Codes: [id number] INP/OBS CARE(MOD) KARENA PURCELL MD Dec 12, 2024 18:27
[2024-12-13] VITALS (14 sets, daily range): BP systolic 127–144; BP diastolic 62–73; PULSE 79–112; RESP 18–22; TEMP 98.1–99.1; O2SAT 94–100
--- NOTE | 2024-12-13 05:48 | DVH ---
CHEST RADIOGRAPH Indication: pna Technique: Single frontal view of the chest was obtained Comparison: XY CHEST XRAY 1 VIEW on DOS: 12/12/24, XY CHEST XRAY 1 VIEW on DOS: 12/08/24, XY CHEST XRAY 1 VIEW on DOS: 12/07/24 IMPRESSION: Low lung volumes. Heart is prominent size. Moderate pulmonary vascular congestion. No sizable effu jordy or pneumothorax. No significant interval change.
[2024-12-13 06:30] LABS: Hematocrit 38.2 % (36.0-46.0); Hemoglobin 13.2 g/dL (12.2-16.2); Mean Corpuscular Hemoglobin 31.7 pg (28.0-32.0); Mean Corpuscular Volume 91.5 fL (80.0-100.0)
[2024-12-13 06:40] LABS: Anion Gap 10 (5-15); Calcium 9.0 mg/dL (8.7-10.4); Carbon Dioxide 24 mmol/L (20-31); Chloride 107 mmol/L (98-107); Potassium 4.2 mmol/L (3.5-5.1); Sodium 141 mmol/L (136-145)
[2024-12-13 06:46] LABS: BUN/Creatinine Ratio 38.2 (10.0-20.0); Glucose 76 mg/dL (74-106)
[2024-12-13 07:00] LABS: Blood Urea Nitrogen 29 mg/dL (9-23)
[2024-12-13 08:02] LABS: Total Cells Counted 100.0 (100)
--- NOTE | 2024-12-13 14:47 | DVHPN2 ---
Progress Note - Dictate Date Seen: Dec 13, 2024 Medical Necessity Reason Pt with a Central, PICC or Fol: Yes The following are medically ne: Central Line vital signs Vital Sign Date Time Temp Pulse Resp B/P (MAP) Pulse Ox O2 Delivery O2 Flow Rate FiO2 12/13/24 11:20 98 20 100 12/13/24 11:10 Nasal Cannula* 4 36 12/13/24 10:10 127/70 12/13/24 09:00 98.1 98.1 Total Intake and Output 12/12/24 12/12/24 12/13/24 15:00 23:00 07:00 Intake Total 182.94 ml 450 ml 400 ml Output Total 1801 ml 1551 ml Balance 182.94 ml -1351 ml -1151 ml medications Current Medications Medications Dose Ordered Sig/Aren Route Start Time Stop Time Status Last Admin Dose Admin Ondansetron HCl 4 mg Q4HP PRN IV 12/02/24 10:15 Enoxaparin Sodium 40 mg DAILY SC 12/03/24 10:00 12/13/24 10:09 40 MG Acetaminophen 650 mg Q6HP PRN PO 12/02/24 10:15 12/12/24 16:08 650 MG Nitroglycerin 0.4 mg Q5MINP PRN SL 12/02/24 10:15 Albuterol 2.5 mg Q6HWA NEB 12/02/24 12:00 12/13/24 11:10 2.5 MG Ipratropium [place] 0.5 mg Q6HWA NEB 12/02/24 12:00 12/13/24 11:10 0.5 MG Albuterol 2.5 mg Q2HPRN PRN NEB 12/04/24 10:15 12/13/24 04:47 2.5 MG Budesonide 0.5 mg BID NEB 12/04/24 22:00 12/13/24 11:10 0.5 MG Sodium Chloride 10 ml QSHIFT@10,22 IV 12/04/24 22:00 12/13/24 10:09 10 ML Methylprednisolone Sodium Succinate 40 mg DAILY IV 12/08/24 10:00 12/13/24 10:08 40 MG Pantoprazole Sodium 40 mg DAILY IV 12/07/24 10:45 12/13/24 10:08 40 MG Hydralazine HCl 10 mg Q6HP PRN IV 12/08/24 09:30 12/12/24 11:52 10 MG Enteral Nutritional Formula 1,000 ml 30ML/HR GT 12/08/24 15:15 12/09/24 17:45 1,000 ML Levofloxacin/ Dextrose 100 ml @ 100 mls/hr DAILY IV 12/09/24 10:00 12/13/24 10:08 100 MLS/HR Lactulose 30 ml BID PO 12/11/24 10:00 12/12/24 22:26 30 ML Morphine Sulfate 1 mg Q4HP PRN IV 12/11/24 10:15 12/13/24 01:17 1 MG Lorazepam 1 mg Q8HP PRN IV 12/11/24 10:15 12/13/24 13:16 1 MG Amlodipine Besylate 10 mg DAILY PO 12/13/24 10:00 12/13/24 10:10 10 MG laboratory and microbiology Laboratory Tests 12/13/24 05:31 Test 12/13/24 05:31 Range/Units Serum Glucose 76 74-106 mg/dL Assessment/Plan Covering for Dr. [place] Impression Acute hypoxemic respiratory failure Multiple allergies Morbid obesity Asthma anaphylaxis Patient seen and examined Events S/p extubation Low oxygen requirements On 3 liters nasal cannula S/p downgrade Labs and imaging reviewed ABG reviewed Management suppl 02 as needed titrate Continue antibiotics F/u cultures Bronchodilators Continue duonebs DC steroids Monitor renal function Monitor electrolytes Supplement as needed DVT prophylaxis Dietary Evaluation Review Comments: Nutrition Recommendation: 1) TF Vital High Protein @ 50ml/hr x 24hr (goal rate) along with Pro-stat 1 pk BID. Start @ 20ml/hr, increase 10ml/hr Q4H until goal is reached. TF @ goal volume along with Pro-stat & Propofol provide 2564 kcal (100% energy needs), 135 gm protein (100% protein needs), 1003 ml free water. 2) Water flush 260ml Q4H if allowed, adjust PRN 3) TPN if NPO >7 days 4) Monitor NPO status, lab values, wt trend, I/O Expected Outcomes/Goals: To meet >75% estimated needs Lab values to improve Fu 2-3 days Plan discussed with: Patient MALLY LARA MD Dec 13, 2024 14:47
--- NOTE | 2024-12-13 19:10 | DVHPN2 ---
Subjective Patient is currently on tele floor, participated with the physical therapy but did not get up yet. Reviewed: Care Plan, H&P, Labs, Medications Changes from previous H/P or p: No Changes General: Per HPI Respiratory: Shortness of breath Objective Vitals Vital Signs Date Time Temp Pulse Resp B/P (MAP) Pulse Ox O2 Delivery O2 Flow Rate FiO2 12/13/24 18:59 87 20 98 12/13/24 18:49 Nasal Cannula* 4 36 12/13/24 16:12 130/68 12/13/24 13:00 98.2 98.2 Intake/Output Intake and Output 12/13/24 07:00 Intake Total 1032.94 ml Output Total 3352 ml Balance -2319.06 ml Intake Oral 850 ml IV Total 182.94 ml Output Urine Total 3350 ml Stool Total 2 ml Exam HEENT pupils are reactive Neck is supple CV is S1-S2 regular rate and rhythm Respiratory diminished breath sounds bilateral lung bases GI positive bowel sound 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 General Appearance: Alert, mild distress HEENT: Atraumatic, PERRLA Lungs: Clear to auscultation, Normal air movement, Other (Mechanical ventilation) Cardiovascular: Normal S1, Normal S2 Abdomen: Normal bowel sounds, Soft, No tenderness Genitourinary: No Apparent Abnormalities Musculoskeletal: Normal sensory function, Normal motor function Extremities: No clubbing, No cyanosis Skin: Dry, Intact Psych/Mental Status: Other (Anxious) Medications Current Medications Medications Dose Ordered Sig/Aren Route Start Time Stop Time Status Last Admin Dose Admin Ondansetron HCl 4 mg Q4HP PRN IV 12/02/24 10:15 Enoxaparin Sodium 40 mg DAILY SC 12/03/24 10:00 12/13/24 10:09 40 MG Acetaminophen 650 mg Q6HP PRN PO 12/02/24 10:15 12/12/24 16:08 650 MG Nitroglycerin 0.4 mg Q5MINP PRN SL 12/02/24 10:15 Albuterol 2.5 mg Q6HWA NEB 12/02/24 12:00 12/13/24 18:49 2.5 MG Ipratropium [place] 0.5 mg Q6HWA NEB 12/02/24 12:00 12/13/24 18:48 0.5 MG Albuterol 2.5 mg Q2HPRN PRN NEB 12/04/24 10:15 12/13/24 04:47 2.5 MG Budesonide 0.5 mg BID NEB 12/04/24 22:00 12/13/24 18:49 0.5 MG Sodium Chloride 10 ml QSHIFT@10,22 IV 12/04/24 22:00 12/13/24 10:09 10 ML Pantoprazole Sodium 40 mg DAILY IV 12/07/24 10:45 12/13/24 10:08 40 MG Hydralazine HCl 10 mg Q6HP PRN IV 12/08/24 09:30 12/12/24 11:52 10 MG Enteral Nutritional Formula 1,000 ml 30ML/HR GT 12/08/24 15:15 12/09/24 17:45 1,000 ML Levofloxacin/ Dextrose 100 ml @ 100 mls/hr DAILY IV 12/09/24 10:00 12/13/24 10:08 100 MLS/HR Lactulose 30 ml BID PO 12/11/24 10:00 12/12/24 22:26 30 ML Morphine Sulfate 1 mg Q4HP PRN IV 12/11/24 10:15 12/13/24 15:42 1 MG Lorazepam 1 mg Q8HP PRN IV 12/11/24 10:15 12/13/24 13:16 1 MG Amlodipine Besylate 10 mg DAILY PO 12/13/24 10:00 12/13/24 10:10 10 MG Laboratory Results Laboratory Tests 12/13/24 05:31 Chemistry Test 12/13/24 05:31 Calcium Level 9.0 mg/dL (8.7-10.4) Urinalysis Test 12/02/24 07:12 Urine Color Light-yellow (Yellow) Urine Clarity Clear (Clear) Urine pH 5.0 (5.0-9.0) Urine Specific [place] 1.015 (1.001-1.035) Urine Protein Negative (Negative) Urine Ketones Negative (Negative) Urine Blood Negative /uL (Negative) Urine Nitrite Negative (Negative) Urine Bilirubin Negative (Negative) Urine Urobilinogen Normal mg/dL (Negative) Urine Leukocyte Esterase Negative /uL (Negative) Urine RBC 1 /hpf (0 - 4) Urine Microscopic WBC 3 /HPF (0-5) Urine Squamous Epithelial Cells Few /hpf (<5) Urine Bacteria None seen /hpf (None Seen) Urine Mucus Few (None Seen) Urine Glucose Normal mg/dL (Normal) Microbiology Microbiology Date/Time Source Procedure Growth Status 12/05/24 09:22 Catheter Tip Aerobic Culture - Final Morganella morganii Staphylococcus lugdunensis Complete 12/04/24 15:01 Blood Blood Culture - Final NO GROWTH AFTER 5 DAYS OF INCUBATION. Complete 12/03/24 11:49 Urine - [place] Urine Culture - Final Complete 12/02/24 06:25 Sputum Gram Stain - Final Complete 12/02/24 06:25 Sputum Respiratory Culture - Final Complete Assessment/Plan Assessment/Plan 49-year-old female with a known history of chronic asthma, mast cell syndrome, morbid obesity classIII who initially presented to the hospital with the increasing shortness a breath found to have 1. Acute hypoxic respiratory failure suspected secondary to acute asthma exacerbation status post intubation, status post extubation 2. Acute on chronic asthma exacerbation 3. Mouth cell disease/syndrome 4. NSTEMI likely type 2 5. Leukocytosis likely reactive 6. Sepsis suspected pneumonia 7. Morbid obesity classIII -continue IV antibiotics, med nebs, O2 supplementation, PT evaluation and treatment., we will assess for home oxygen requirement before discharge. Plan discussed with: Patient Date of Service: Dec 13, 2024 Billing Provider: KARENA PURCELL MD Common Visit Codes: [id number] INP/OBS CARE(MOD) KARENA PURCELL MD Dec 13, 2024 19:10
[2024-12-14] VITALS (17 sets, daily range): BP systolic 127–154; BP diastolic 54–82; PULSE 79–100; RESP 18–20; TEMP 98.2–98.8; O2SAT 93–98
--- NOTE | 2024-12-14 05:36 | DVH ---
CHEST RADIOGRAPH Indication: pna Technique: Single frontal view of the chest was obtained COMPARISON: XY CHEST XRAY 1 VIEW on DOS: 12/13/24, XY CHEST XRAY 1 VIEW on DOS: 12/12/24, XY CHEST XRAY 1 VIEW on DOS: 12/08/24, XY CHEST XRAY 1 VIEW on DOS: 12/07/24, XY CHEST PORTABLE on DOS: 12/06/24 FINDINGS: Lines and Tubes: Right peripherally inserted central catheter is unchanged in position. Lungs: Moderate diffuse increased prominence of the pulmonary vasculature without evidence of focal c onsolidation. Pleura: No effusion. No pneumothorax. Cardiomediastinal contours: Cardiomegaly. Bones: Unremarkable IMPRESSION: 1. Cardiomegaly with moderate pulmonary vascular congestion. 2. Right PICC.
--- NOTE | 2024-12-14 16:48 | DVHPN2 ---
Subjective Patient is currently on tele floor, participated with the physical therapy but did not get up yet. Reviewed: Care Plan, H&P, Labs, Medications Changes from previous H/P or p: No Changes General: Per HPI Respiratory: Shortness of breath Objective Vitals Vital Signs Date Time Temp Pulse Resp B/P (MAP) Pulse Ox O2 Delivery O2 Flow Rate FiO2 12/14/24 12:18 87 18 98 12/14/24 12:10 Nasal Cannula* 3 32 12/14/24 10:21 150/60 12/14/24 09:00 98.8 98.8 Intake/Output Intake and Output 12/14/24 07:00 Intake Total 1050 ml Output Total 2475 ml Balance -1425 ml Intake Oral 950 ml IV Total 100 ml Output Urine Total 2475 ml Exam HEENT pupils are reactive Neck is supple CV is S1-S2 regular rate and rhythm Respiratory diminished breath sounds bilateral lung bases GI positive bowel sound 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 General Appearance: Alert, mild distress HEENT: Atraumatic, PERRLA Lungs: Clear to auscultation, Normal air movement, Other (Mechanical ventilation) Cardiovascular: Normal S1, Normal S2 Abdomen: Normal bowel sounds, Soft, No tenderness Genitourinary: No Apparent Abnormalities Musculoskeletal: Normal sensory function, Normal motor function Extremities: No clubbing, No cyanosis Skin: Dry, Intact Psych/Mental Status: Other (Anxious) Medications Current Medications Medications Dose Ordered Sig/Aren Route Start Time Stop Time Status Last Admin Dose Admin Ondansetron HCl 4 mg Q4HP PRN IV 12/02/24 10:15 Enoxaparin Sodium 40 mg DAILY SC 12/03/24 10:00 12/14/24 09:59 40 MG Acetaminophen 650 mg Q6HP PRN PO 12/02/24 10:15 12/12/24 16:08 650 MG Nitroglycerin 0.4 mg Q5MINP PRN SL 12/02/24 10:15 Albuterol 2.5 mg Q6HWA NEB 12/02/24 12:00 12/14/24 12:12 2.5 MG Ipratropium [place] 0.5 mg Q6HWA NEB 12/02/24 12:00 12/14/24 12:10 0.5 MG Albuterol 2.5 mg Q2HPRN PRN NEB 12/04/24 10:15 12/13/24 04:47 2.5 MG Budesonide 0.5 mg BID NEB 12/04/24 22:00 12/14/24 06:45 0.5 MG Sodium Chloride 10 ml QSHIFT@10,22 IV 12/04/24 22:00 12/14/24 09:58 10 ML Pantoprazole Sodium 40 mg DAILY IV 12/07/24 10:45 12/14/24 09:58 40 MG Hydralazine HCl 10 mg Q6HP PRN IV 12/08/24 09:30 12/12/24 11:52 10 MG Enteral Nutritional Formula 1,000 ml 30ML/HR GT 12/08/24 15:15 12/09/24 17:45 1,000 ML Levofloxacin/ Dextrose 100 ml @ 100 mls/hr DAILY IV 12/09/24 10:00 12/14/24 09:59 100 MLS/HR Lactulose 30 ml BID PO 12/11/24 10:00 12/14/24 13:04 30 ML Morphine Sulfate 1 mg Q4HP PRN IV 12/11/24 10:15 12/14/24 02:49 1 MG Lorazepam 1 mg Q8HP PRN IV 12/11/24 10:15 12/13/24 13:16 1 MG Amlodipine Besylate 10 mg DAILY PO 12/13/24 10:00 12/14/24 10:21 10 MG Laboratory Results Laboratory Tests 12/13/24 05:31 Urinalysis Test 12/02/24 07:12 Urine Color Light-yellow (Yellow) Urine Clarity Clear (Clear) Urine pH 5.0 (5.0-9.0) Urine Specific [place] 1.015 (1.001-1.035) Urine Protein Negative (Negative) Urine Ketones Negative (Negative) Urine Blood Negative /uL (Negative) Urine Nitrite Negative (Negative) Urine Bilirubin Negative (Negative) Urine Urobilinogen Normal mg/dL (Negative) Urine Leukocyte Esterase Negative /uL (Negative) Urine RBC 1 /hpf (0 - 4) Urine Microscopic WBC 3 /HPF (0-5) Urine Squamous Epithelial Cells Few /hpf (<5) Urine Bacteria None seen /hpf (None Seen) Urine Mucus Few (None Seen) Urine Glucose Normal mg/dL (Normal) Microbiology Microbiology Date/Time Source Procedure Growth Status 12/05/24 09:22 Catheter Tip Aerobic Culture - Final Morganella morganii Staphylococcus lugdunensis Complete 12/04/24 15:01 Blood Blood Culture - Final NO GROWTH AFTER 5 DAYS OF INCUBATION. Complete 12/03/24 11:49 Urine - [place] Urine Culture - Final Complete 12/02/24 06:25 Sputum Gram Stain - Final Complete 12/02/24 06:25 Sputum Respiratory Culture - Final Complete Assessment/Plan Assessment/Plan 49-year-old female with a known history of chronic asthma, mast cell syndrome, morbid obesity classIII who initially presented to the hospital with the increasing shortness a breath found to have 1. Acute hypoxic respiratory failure suspected secondary to acute asthma exacerbation status post intubation, status post extubation 2. Acute on chronic asthma exacerbation 3. Mouth cell disease/syndrome 4. NSTEMI likely type 2 5. Leukocytosis likely reactive 6. Sepsis suspected pneumonia 7. Morbid obesity classIII -continue IV antibiotics, med nebs, O2 supplementation, PT evaluation and treatment., we will assess for home oxygen requirement before discharge. Plan discussed with: Patient Date of Service: Dec 14, 2024 Billing Provider: KARENA PURCELL MD Common Visit Codes: [id number] INP/OBS CARE(MOD) KARENA PURCELL MD Dec 14, 2024 16:48
[2024-12-15] VITALS (17 sets, daily range): BP systolic 129–148; BP diastolic 52–71; PULSE 79–96; RESP 16–22; TEMP 98.3–98.5; O2SAT 93–99
--- NOTE | 2024-12-15 12:17 | DVHPN2 ---
Subjective Patient reports constipation, back ache. Reviewed: Care Plan, H&P, Labs, Medications Changes from previous H/P or p: No Changes General: Per HPI Respiratory: Shortness of breath Objective Vitals Vital Signs Date Time Temp Pulse Resp B/P (MAP) Pulse Ox O2 Delivery O2 Flow Rate FiO2 12/15/24 11:20 90 20 98 12/15/24 09:56 Nasal Cannula 4.0 12/15/24 09:56 36 12/15/24 09:02 138/64 12/15/24 09:00 98.3 98.3 Intake/Output Intake and Output 12/15/24 07:00 Intake Total 500 ml Output Total 1400 ml Balance -900 ml Intake Oral 500 ml Output Urine Total 1400 ml # Bowel Movements 4 General Appearance: Alert, mild distress HEENT: Atraumatic, PERRLA Lungs: Clear to auscultation, Normal air movement, Other (Mechanical ventilation) Cardiovascular: Normal S1, Normal S2 Abdomen: Normal bowel sounds, Soft, No tenderness Genitourinary: No Apparent Abnormalities Musculoskeletal: Normal sensory function, Normal motor function Extremities: No clubbing, No cyanosis Skin: Dry, Intact Psych/Mental Status: Other (Anxious) Medications Current Medications Medications Dose Ordered Sig/Aren Route Start Time Stop Time Status Last Admin Dose Admin Ondansetron HCl 4 mg Q4HP PRN IV 12/02/24 10:15 Enoxaparin Sodium 40 mg DAILY SC 12/03/24 10:00 12/15/24 08:59 40 MG Acetaminophen 650 mg Q6HP PRN PO 12/02/24 10:15 12/12/24 16:08 650 MG Nitroglycerin 0.4 mg Q5MINP PRN SL 12/02/24 10:15 Albuterol 2.5 mg Q6HWA [facility] 12/02/24 12:00 12/15/24 11:09 2.5 MG Ipratropium [place] 0.5 mg Q6HWA [facility] 12/02/24 12:00 12/15/24 11:08 0.5 MG Albuterol 2.5 mg Q2HPRN PRN [facility] 12/04/24 10:15 12/15/24 02:41 2.5 MG Budesonide 0.5 mg BID NEB 12/04/24 22:00 12/15/24 06:53 0.5 MG Sodium Chloride 10 ml QSHIFT@10,22 IV 12/04/24 22:00 12/15/24 09:02 10 ML Pantoprazole Sodium 40 mg DAILY IV 12/07/24 10:45 12/15/24 09:02 40 MG Hydralazine HCl 10 mg Q6HP PRN IV 12/08/24 09:30 12/12/24 11:52 10 MG Enteral Nutritional Formula 1,000 ml 30ML/HR GT 12/08/24 15:15 12/09/24 17:45 1,000 ML Levofloxacin/ Dextrose 100 ml @ 100 mls/hr DAILY IV 12/09/24 10:00 12/15/24 08:59 100 MLS/HR Lactulose 30 ml BID PO 12/11/24 10:00 12/14/24 13:04 30 ML Morphine Sulfate 1 mg Q4HP PRN IV 12/11/24 10:15 12/15/24 09:02 1 MG Lorazepam 1 mg Q8HP PRN IV 12/11/24 10:15 12/13/24 13:16 1 MG Amlodipine Besylate 10 mg DAILY PO 12/13/24 10:00 12/15/24 09:01 10 MG Laboratory Results Laboratory Tests 12/13/24 05:31 Urinalysis Test 12/02/24 07:12 Urine Color Light-yellow (Yellow) Urine Clarity Clear (Clear) Urine pH 5.0 (5.0-9.0) Urine Specific [place] 1.015 (1.001-1.035) Urine Protein Negative (Negative) Urine Ketones Negative (Negative) Urine Blood Negative /uL (Negative) Urine Nitrite Negative (Negative) Urine Bilirubin Negative (Negative) Urine Urobilinogen Normal mg/dL (Negative) Urine Leukocyte Esterase Negative /uL (Negative) Urine RBC 1 /hpf (0 - 4) Urine Microscopic WBC 3 /HPF (0-5) Urine Squamous Epithelial Cells Few /hpf (<5) Urine Bacteria None seen /hpf (None Seen) Urine Mucus Few (None Seen) Urine Glucose Normal mg/dL (Normal) Microbiology Microbiology Date/Time Source Procedure Growth Status 12/05/24 09:22 Catheter Tip Aerobic Culture - Final Morganella morganii Staphylococcus lugdunensis Complete 12/04/24 15:01 Blood Blood Culture - Final NO GROWTH AFTER 5 DAYS OF INCUBATION. Complete 12/03/24 11:49 Urine - [place] Urine Culture - Final Complete 12/02/24 06:25 Sputum Gram Stain - Final Complete 12/02/24 06:25 Sputum Respiratory Culture - Final Complete Labs and/or images reviewed: Labs reviewed by me, Image(s) reviewed by me Assessment/Plan Assessment/Plan Impression: -acute hypoxic respiratory failure -asthma exacerbation -morbid obesity -NSTEMI, probably type 2 -Leukocytosis, rule out sepsis given positive blood culture. Questionable contamination Course of hospitalization: Events: Deconditioned. Low flow O2. VSS -Physical therapy: OOB as tolerated -bowel regimen: continue lactulose -PUD, DVT prophylaxis -Repeat labs Total time spent with patient: 40min. This medical document was created using an electronic medical record system with [employer] dictation system. Although this document has been carefully reviewed, there may still be some phonetic and typographical errors. These areas are purely typographical due to imperfections of the software programs, and do not reflect any compromise in the patient's medical care. Plan discussed with: Patient, Other (RN) My Orders Orders - SHANICE DELEON NP Procedure Category Date Status Time Oob To Chair ZANDER 12/15/24 Verified 12:10 Maintain Hob >30 ZANDER 12/15/24 Verified 12:10 Hydrocodone-Acet PHA 12/15/24 Verified 5/325mg Tab ([place] 12:15 Date of Service: Dec 15, 2024 Billing Provider: SHANICE DELEON NP Common Visit Codes: [id number] INP/OBS CARE(HIGH) SHANICE DELEON NP Dec 15, 2024 12:17
[2024-12-15] MEDS: HYDROcodone-ACET 5/325MG TAB PO PRN (20:11)
[2024-12-15] MEDS: MORPHINE SULFATE INJ 2 MG/ml SYRG IV PRN (22:31)
[2024-12-16] VITALS (17 sets, daily range): BP systolic 122–168; BP diastolic 66–87; PULSE 78–107; RESP 16–18; TEMP 97.5–98.6; O2SAT 95–100
[2024-12-16] MEDS: ONDANSETRON HCL 4 MG/2 ML VIAL IV PRN (12:54)
[2024-12-16 14:03] LABS: Hematocrit 42.5 % (36.0-46.0); Hemoglobin 13.7 g/dL (12.2-16.2); Mean Corpuscular Hemoglobin 30.9 pg (28.0-32.0); Mean Corpuscular Volume 95.7 fL (80.0-100.0); Nucleated Red Blood Cells % 0.0 %
--- NOTE | 2024-12-16 14:18 | DVHPN2 ---
Subjective Patient reports constipation, back ache. Reviewed: Care Plan, H&P, Labs, Medications Changes from previous H/P or p: No Changes General: Per HPI Respiratory: Shortness of breath Objective Vitals Vital Signs Date Time Temp Pulse Resp B/P (MAP) Pulse Ox O2 Delivery O2 Flow Rate FiO2 12/16/24 13:00 98.1 83 18 168/87 (114) 95 98.1 12/16/24 11:48 Nasal Cannula* 3 32 Intake/Output Intake and Output 12/16/24 07:00 Intake Total 1110 ml Output Total 2875 ml Balance -1765 ml Intake Oral 1010 ml IV Total 100 ml Output Urine Total 2875 ml General Appearance: Alert, Oriented X3, Cooperative, mild distress HEENT: Atraumatic, PERRLA Lungs: Clear to auscultation, Normal air movement, Other (Mechanical ventilation) Cardiovascular: Normal S1, Normal S2 Abdomen: Normal bowel sounds, Soft, No tenderness Genitourinary: No Apparent Abnormalities Musculoskeletal: Weak motor strength RUE, Weak motor strength LUE, Weak motor strength RLE, Weak motor strength LLE Extremities: No clubbing, No cyanosis Skin: Dry, Intact Psych/Mental Status: Other (Anxious) Medications Current Medications Medications Dose Ordered Sig/Aren Route Start Time Stop Time Status Last Admin Dose Admin Ondansetron HCl 4 mg Q4HP PRN IV 12/02/24 10:15 12/16/24 12:54 4 MG Enoxaparin Sodium 40 mg DAILY SC 12/03/24 10:00 12/16/24 10:37 40 MG Acetaminophen 650 mg Q6HP PRN PO 12/02/24 10:15 12/16/24 00:35 650 MG Nitroglycerin 0.4 mg Q5MINP PRN SL 12/02/24 10:15 Albuterol 2.5 mg Q6HWA NEB 12/02/24 12:00 12/16/24 11:48 2.5 MG Ipratropium [place] 0.5 mg Q6HWA NEB 12/02/24 12:00 12/16/24 11:48 0.5 MG Albuterol 2.5 mg Q2HPRN PRN NEB 12/04/24 10:15 12/15/24 02:41 2.5 MG Budesonide 0.5 mg BID NEB 12/04/24 22:00 12/16/24 06:54 0.5 MG Sodium Chloride 10 ml QSHIFT@10,22 IV 12/04/24 22:00 12/16/24 10:30 10 ML Pantoprazole Sodium 40 mg DAILY IV 12/07/24 10:45 12/16/24 10:30 40 MG Hydralazine HCl 10 mg Q6HP PRN IV 12/08/24 09:30 12/12/24 11:52 10 MG Levofloxacin/ Dextrose 100 ml @ 100 mls/hr DAILY IV 12/09/24 10:00 12/16/24 10:30 100 MLS/HR Lactulose 30 ml BID PO 12/11/24 10:00 12/14/24 13:04 30 ML Lorazepam 1 mg Q8HP PRN IV 12/11/24 10:15 12/13/24 13:16 1 MG Amlodipine Besylate 10 mg DAILY PO 12/13/24 10:00 12/16/24 10:37 10 MG Acetaminophen/ Hydrocodone [place] 1 tab Q8HPRN PRN PO 12/15/24 12:15 12/15/24 20:11 1 TAB Morphine Sulfate 1 mg Q4HP PRN IV 12/15/24 17:30 12/16/24 03:26 1 MG Laboratory Results Chemistry Test 12/16/24 13:40 Calcium Level Pending Urinalysis Test 12/02/24 07:12 Urine Color Light-yellow (Yellow) Urine Clarity Clear (Clear) Urine pH 5.0 (5.0-9.0) Urine Specific [place] 1.015 (1.001-1.035) Urine Protein Negative (Negative) Urine Ketones Negative (Negative) Urine Blood Negative /uL (Negative) Urine Nitrite Negative (Negative) Urine Bilirubin Negative (Negative) Urine Urobilinogen Normal mg/dL (Negative) Urine Leukocyte Esterase Negative /uL (Negative) Urine RBC 1 /hpf (0 - 4) Urine Microscopic WBC 3 /HPF (0-5) Urine Squamous Epithelial Cells Few /hpf (<5) Urine Bacteria None seen /hpf (None Seen) Urine Mucus Few (None Seen) Urine Glucose Normal mg/dL (Normal) Microbiology Microbiology Date/Time Source Procedure Growth Status 12/05/24 09:22 Catheter Tip Aerobic Culture - Final Morganella morganii Staphylococcus lugdunensis Complete 12/04/24 15:01 Blood Blood Culture - Final NO GROWTH AFTER 5 DAYS OF INCUBATION. Complete 12/03/24 11:49 Urine - [place] Urine Culture - Final Complete 12/02/24 06:25 Sputum Gram Stain - Final Complete 12/02/24 06:25 Sputum Respiratory Culture - Final Complete Labs and/or images reviewed: Labs reviewed by me, Image(s) reviewed by me Assessment/Plan Assessment/Plan Impression: -acute hypoxic respiratory failure -asthma exacerbation -morbid obesity -NSTEMI, probably type 2 -Leukocytosis, rule out sepsis given positive blood culture. Questionable contamination Course of hospitalization: Events: Continues to be max assist with physical therapy. -MRI of the brain -social service consultation for sniff placement -Physical therapy: OOB as tolerated -bowel regimen: continue lactulose, add MiraLax and Dulcolax suppository -PUD, DVT prophylaxis -Repeat labs Total time spent with patient discussing and formulating plan of care: 35 minutes. This medical document was created using an electronic medical record system with [employer] dictation system. Although this document has been carefully reviewed, there may still be some phonetic and typographical errors. These areas are purely typographical due to imperfections of the software programs, and do not reflect any compromise in the patient's medical care. Plan discussed with: Patient, Daughter, Other (RN) My Orders Orders - SHANICE DELEON NP Procedure Category Date Status Time Morphine Sulfate PHA 12/15/24 In Process Injection 17:30 Basic Metabolic Panel LAB 12/16/24 In Process 12:59 Complete Blood Count LAB 12/16/24 In Process 12:59 Brain Head Wo Contrast MRI 12/16/24 Logged 12:59 Pureed DIET 12/16/24 Transmitted Lunch Abg W/ Co-Ox RT 12/16/24 Logged 13:36 Lorazepam 2mg/Ml Inj PHA 12/16/24 Logged (Ativan Inj) 14:15 Polyethylene Glycol PHA 12/16/24 Logged 17g Powder (Miralax 14:15 Bisacodyl Suppository PHA 12/16/24 Logged (Dulcolax Supposit 14:15 * Cloth Finisher CONS 12/16/24 Transmitted Consult Date of Service: Dec 16, 2024 Billing Provider: SHANICE DELEON NP Common Visit Codes: [id number] INP/OBS CARE(HIGH) SHANICE DELEON NP Dec 16, 2024 14:18
[2024-12-16 14:24] LABS: Chloride 104 mmol/L (98-107); Potassium 4.0 mmol/L (3.5-5.1); Sodium 138 mmol/L (136-145)
[2024-12-16 14:25] LABS: Anion Gap 10 (5-15); Carbon Dioxide 24 mmol/L (20-31)
[2024-12-16 14:30] LABS: BUN/Creatinine Ratio 31.5 (10.0-20.0); Blood Urea Nitrogen 17 mg/dL (9-23); Glucose 102 mg/dL (74-106)
[2024-12-16 14:31] LABS: Calcium 8.3 mg/dL (8.7-10.4)
[2024-12-16 14:37] LABS: Base Excess 2.6 mmol/L (-2.0-3.0)
[2024-12-16] MEDS: LORazepam 2MG/ML-1ML VIAL IV ONE (15:23)
[2024-12-16] MEDS: POLYETHYLENE GLYCOL 17 GM PWDR PO ONE (16:19)
--- NOTE | 2024-12-16 16:21 | DVH ---
CLINICAL HISTORY: rule out cva TECHNIQUE: Routine multiplanar imaging of the brain was performed without gadolinium contrast. COMPARISON: None FINDINGS: There is no abnormal restricted diffusion to suggest acute infarction. There are no significant chronic small vessel ischemic foci. There is no evidence for acute ischemic changes, mass, mass effect, or extra-axial fluid collection. There is no hydrocephalus or midline shift. The cerebral sulci and subarachnoid cisterns are not effa mikey. The imaged paranasal sinuses demonstrate moderate fluid within the right maxillary sinus. There is sm all left mastoid effusion. There is mild scattered mucoperiosteal thickening. The globes are intact. The midline structures, including the corpus callosum, are unremarkable. The intracranial flow voids are maintained. IMPRESSION: No acute intracranial abnormality seen. No evidence for acute infarct. No significant white matter di sease. Moderate right maxillary sinus fluid and mild scattered paranasal mucoperiosteal thickening. Small left mastoid effusion.
[2024-12-17] VITALS (17 sets, daily range): BP systolic 119–157; BP diastolic 62–83; PULSE 78–101; RESP 16–19; TEMP 96.5–99.6; O2SAT 92–99
--- NOTE | 2024-12-17 13:29 | DVHPN2 ---
Subjective Patient reports constipation, back ache. Reviewed: Care Plan, H&P, Labs, Medications Changes from previous H/P or p: No Changes General: Per HPI Respiratory: Shortness of breath Objective Vitals Vital Signs Date Time Temp Pulse Resp B/P (MAP) Pulse Ox O2 Delivery O2 Flow Rate FiO2 12/17/24 12:06 88 18 99 12/17/24 12:00 Nasal Cannula 3.0 12/17/24 12:00 32 12/17/24 10:07 157/83 12/17/24 09:00 97.4 97.4 Intake/Output Intake and Output 12/17/24 07:00 Intake Total 460 ml Output Total 2675 ml Balance -2215 ml Intake Oral 360 ml IV Total 100 ml Output Urine Total 2675 ml # Bowel Movements 1 General Appearance: Alert, Oriented X3, Cooperative, mild distress HEENT: Atraumatic, PERRLA Lungs: Clear to auscultation, Normal air movement, Other (Mechanical ventilation) Cardiovascular: Normal S1, Normal S2 Abdomen: Normal bowel sounds, Soft, No tenderness Genitourinary: No Apparent Abnormalities Musculoskeletal: Weak motor strength RUE, Weak motor strength LUE, Weak motor strength RLE, Weak motor strength LLE Extremities: No clubbing, No cyanosis Skin: Dry, Intact Psych/Mental Status: Other (Anxious) Medications Current Medications Medications Dose Ordered Sig/Aren Route Start Time Stop Time Status Last Admin Dose Admin Ondansetron HCl 4 mg Q4HP PRN IV 12/02/24 10:15 12/16/24 12:54 4 MG Enoxaparin Sodium 40 mg DAILY SC 12/03/24 10:00 12/17/24 10:07 40 MG Acetaminophen 650 mg Q6HP PRN PO 12/02/24 10:15 12/16/24 00:35 650 MG Nitroglycerin 0.4 mg Q5MINP PRN SL 12/02/24 10:15 Albuterol 2.5 mg Q6HWA NEB 12/02/24 12:00 12/17/24 12:00 2.5 MG Ipratropium [place] 0.5 mg Q6HWA NEB 12/02/24 12:00 12/17/24 12:00 0.5 MG Albuterol 2.5 mg Q2HPRN PRN NEB 12/04/24 10:15 12/16/24 22:49 2.5 MG Budesonide 0.5 mg BID NEB 12/04/24 22:00 12/17/24 06:58 0.5 MG Sodium Chloride 10 ml QSHIFT@10,22 IV 12/04/24 22:00 12/17/24 10:07 10 ML Pantoprazole Sodium 40 mg DAILY IV 12/07/24 10:45 12/17/24 10:06 40 MG Hydralazine HCl 10 mg Q6HP PRN IV 12/08/24 09:30 12/12/24 11:52 10 MG Lactulose 30 ml BID PO 12/11/24 10:00 12/17/24 10:06 30 ML Lorazepam 1 mg Q8HP PRN IV 12/11/24 10:15 12/13/24 13:16 1 MG Amlodipine Besylate 10 mg DAILY PO 12/13/24 10:00 12/17/24 10:07 10 MG Acetaminophen/ Hydrocodone Bitart 1 tab Q8HPRN PRN PO 12/15/24 12:15 12/15/24 20:11 1 TAB Morphine Sulfate 1 mg Q4HP PRN IV 12/15/24 17:30 12/16/24 03:26 1 MG Bisacodyl 10 mg DAILYP PRN [place] 12/16/24 14:15 Levofloxacin/ Dextrose 100 ml @ 100 mls/hr DAILY IV 12/17/24 10:00 12/19/24 11:00 Laboratory Results Laboratory Tests 12/16/24 13:40 Chemistry Test 12/16/24 13:40 Calcium Level 8.3 mg/dL (8.7-10.4) L Urinalysis Test 12/02/24 07:12 Urine Color Light-yellow (Yellow) Urine Clarity Clear (Clear) Urine pH 5.0 (5.0-9.0) Urine Specific [place] 1.015 (1.001-1.035) Urine Protein Negative (Negative) Urine Ketones Negative (Negative) Urine Blood Negative /uL (Negative) Urine Nitrite Negative (Negative) Urine Bilirubin Negative (Negative) Urine Urobilinogen Normal mg/dL (Negative) Urine Leukocyte Esterase Negative /uL (Negative) Urine RBC 1 /hpf (0 - 4) Urine Microscopic WBC 3 /HPF (0-5) Urine Squamous Epithelial Cells Few /hpf (<5) Urine Bacteria None seen /hpf (None Seen) Urine Mucus Few (None Seen) Urine Glucose Normal mg/dL (Normal) Blood Gas Results Test 12/16/24 14:24 Arterial Blood pH 7.415 (7.350-7.450) FiO2 % 21.0 Microbiology Microbiology Date/Time Source Procedure Growth Status 12/05/24 09:22 Catheter Tip Aerobic Culture - Final Morganella morganii Staphylococcus lugdunensis Complete 12/04/24 15:01 Blood Blood Culture - Final NO GROWTH AFTER 5 DAYS OF INCUBATION. Complete 12/03/24 11:49 Urine - [place] Urine Culture - Final Complete 12/02/24 06:25 Sputum Gram Stain - Final Complete 12/02/24 06:25 Sputum Respiratory Culture - Final Complete Labs and/or images reviewed: Labs reviewed by me, Image(s) reviewed by me Assessment/Plan Assessment/Plan Impression: -acute hypoxic respiratory failure -asthma exacerbation -morbid obesity -NSTEMI, probably type 2 -Leukocytosis, rule out sepsis given positive blood culture. Questionable contamination -deconditioning Course of hospitalization: Events: Continues to be max assist with physical therapy. -MRI of the brain : Negative -social service consultation, pending senior care facility placement -Physical therapy: OOB as tolerated -bowel regimen: Continue current bowel regimen -PUD, DVT prophylaxis Total time spent with patient discussing and formulating plan of care: 35 minutes. This medical document was created using an electronic medical record system with [employer] dictation system. Although this document has been carefully reviewed, there may still be some phonetic and typographical errors. These areas are purely typographical due to imperfections of the software programs, and do not reflect any compromise in the patient's medical care. Plan discussed with: Patient, Other (RN) My Orders Orders - SHANICE DELEON NP Procedure Category Date Status Time Abg W/ Co-Ox RT 12/16/24 Logged 13:36 Bisacodyl Suppository PHA 12/16/24 In Process (Dulcolax Supposit 14:15 * Clinical Sciences Professor CONS 12/16/24 Transmitted Consult * Wound Consult CONS 12/16/24 Transmitted 19:54 Levofloxacin 500mg PHA 12/17/24 In Process (Levaquin 500mg/ 100m 10:00 Date of Service: Dec 17, 2024 Billing Provider: SHANICE DELEON NP Common Visit Codes: [id number] INP/OBS CARE(HIGH) SHANICE DELEON NP Dec 17, 2024 13:29
[2024-12-18] VITALS (16 sets, daily range): BP systolic 122–149; BP diastolic 58–83; PULSE 81–104; RESP 16–19; TEMP 97–99.5; O2SAT 93–100
--- NOTE | 2024-12-18 11:40 | DVHDS2 ---
Discharge Summary Date of Admission Dec 02, 2024 at 10:06 Date of Discharge: Dec 18, 2024 Admitting Diagnosis Acute hypoxic respiratory failure Labs/Diagnostic Data: Laboratory Results Test 12/16/24 14:24 12/16/24 13:40 12/13/24 05:31 12/12/24 04:08 Blood Gas Specimen Type Arterial Blood Gas Sample Site Right radial Blood Gas Patient Temperature 37.0 Arterial Blood Date Drawn [id number] Arterial Blood pH 7.415 (7.350-7.450) Arterial Blood Partial Pressure CO2 44.1 mmHg (32.0-45.0) Arterial Blood Partial Pressure O2 56.5 mmHg (83.0-108.0) Arterial Blood HCO3 27.6 mmol/L (21.0-28.0) Arterial Blood Oxygen Saturation 88.2 % (94.0-98.0) Arterial Blood Base Excess 2.6 mmol/L (-2.0-3.0) Arterial Blood Oxyhemoglobin 87.2 % (94.0-98.0) Arterial Blood Carboxyhemoglobin 0.7 % (0.5-1.5) Arterial Blood Methemoglobin 0.4 % (0.0-1.5) Ranjith Test Yes Blood Gas Total Hemoglobin 13.40 g/dL (12.0-16.0) Blood Gas Liter Flow 0.00 Blood Gas Modality Room air FiO2 % 21.0 White Blood Count 10.7 10^3/uL (4.4-10.8) Red Blood Count 4.44 10^6/uL (4.0-5.20) Hemoglobin 13.7 g/dL (12.2-16.2) Hematocrit 42.5 % (36.0-46.0) Mean Corpuscular Volume 95.7 fL (80.0-100.0) Mean Corpuscular Hemoglobin 30.9 pg (28.0-32.0) Mean Corpuscular Hemoglobin Concent 32.3 g/dL (32.0-36.0) Red Cell Distribution Width 14.1 % (11.8-14.3) Platelet Count 122 10^3/uL (140-450) Mean Platelet Volume 7.9 fL (6.9-10.8) Neutrophils (%) (Auto) 73.3 % (37.0-80.0) Lymphocytes (%) (Auto) 13.6 % (10.0-50.0) Monocytes (%) (Auto) 10.7 % (0.0-12.0) Eosinophils (%) (Auto) 2.2 % (0.0-7.0) Basophils (%) (Auto) 0.2 % (0.0-2.0) Neutrophils # (Auto) 7.8 10 ^3/uL (1.6-8.6) Lymphocytes # (Auto) 1.4 10 ^3/uL (0.4-5.4) Monocytes # (Auto) 1.1 10 ^3/uL (0-1.3) Eosinophils # (Auto) 0.2 10 ^3/uL (0-0.8) Basophils # (Auto) 0 10 ^3/uL (0-0.2) Nucleated Red Blood Cells 0.0 % Sodium Level 138 mmol/L (136-145) Potassium Level 4.0 mmol/L (3.5-5.1) Chloride Level 104 mmol/L (98-107) Carbon Dioxide Level 24 mmol/L (20-31) Anion Gap 10 (5-15) Blood Urea Nitrogen 17 mg/dL (9-23) Creatinine 0.54 mg/dL (0.550-1.02) Glomerular Filtration Rate Calc 112 mL/min (>90) BUN/Creatinine Ratio 31.5 (10.0-20.0) Serum Glucose 102 mg/dL (74-106) Calcium Level 8.3 mg/dL (8.7-10.4) Differential Total Cells Counted 100.0 (100) Neutrophils % (Manual) 73 (37.0-80.0) Band Neutrophils % (Manual) 5 Lymphocytes % (Manual) 15 (10.0-50.0) Monocytes % (Manual) 7 (0-12) Eosinophils % (Manual) 0 (0-7) Basophils % (Manual) 0 (0.0-2.0) Metamyelocytes % (manual) 0 Myelocytes % (Manual) 0 Promyelocytes % (Manual) 0 Blast Cells % (Manual) 0 Reactive Lymphocytes 0 Platelet Estimate Adequate Magnesium Level 2.0 mg/dL (1.6-2.6) Test 12/11/24 19:53 12/11/24 08:30 12/08/24 04:56 12/07/24 10:11 Blood Gas Set Respiration Rate 14.0 Blood Gas Tidal Volume 518.0 Blood Gas EPAP 7 Blood Gas IPAP 14 Blood Gas Critical Value Read Back Yes Blood Gas PEEP or CPAP 5.0 Total Bilirubin 0.5 mg/dL (0.2-1.0) Aspartate Amino Transferase (AST) 54 U/L (13-40) Alanine Aminotransferase (ALT) 84 U/L (7-40) Alkaline Phosphatase 57 U/L (46-116) Total Protein 5.7 g/dL (5.7-8.2) Albumin 3.8 g/dL (3.2-4.8) Random Vancomycin Level 5.8 ug/mL (5-10) Test 12/07/24 05:11 12/06/24 05:52 12/04/24 14:54 12/03/24 12:13 Red Blood Cell Morphology Normal Vancomycin Level Trough 21.7 ug/mL (5-10) Prothrombin Time 10.9 sec (9.3-11.8) Prothrombin Time INR 1.03 (0.9-1.15) Activated Partial Thromboplast Time 24.5 SEC (24.5-34.5) D-Dimer, Quantitative 1.00 mg/L FEU (0.0-0.49) Complement C3 131 mg/dL (82-167) Complement C4 21 mg/dL (12-38) Test 12/03/24 11:57 12/03/24 11:49 12/03/24 10:59 12/03/24 04:40 POC Glucose 127 mg/dl (70-106) Urine Opiates Screen Neg (NEGATIVE) Urine Fentanyl Screen Pos (NEGATIVE) Urine Barbiturates Screen Neg (NEGATIVE) Urine Phencyclidine Screen Neg (NEGATIVE) Urine Amphetamines Screen Neg (NEGATIVE) Urine Benzodiazepines Screen Pos (NEGATIVE) Urine Cocaine Screen Neg (NEGATIVE) Urine Cannabinoids Screen Neg (NEGATIVE) Influenza Type A Antigen Negative (Negative) Influenza Type B Antigen Negative (Negative) SARS-CoV-2 Antigen (Rapid) Negative (NEGATIVE) Erythrocyte Sedimentation Rate 6 mm/hr (0-20) Troponin I High Sensitivity 55 ng/L (</=34) C-Reactive Protein High Sensitivity 0.92 mg/dL (<1.0) Beta HCG, Quantitative 1.8 mIU/mL (1.5-4.2) Test 12/02/24 08:15 12/02/24 07:12 12/02/24 06:30 Blood Gas Notified Whom Julissa garcia md Blood Gas Notified Time [id number] Blood Gas Notified By lakeisha Massey rrt Urine Color Light-yellow (Yellow) Urine Clarity Clear (Clear) Urine pH 5.0 (5.0-9.0) Urine Specific [place] 1.015 (1.001-1.035) Urine Protein Negative (Negative) Urine Ketones Negative (Negative) Urine Blood Negative /uL (Negative) Urine Nitrite Negative (Negative) Urine Bilirubin Negative (Negative) Urine Urobilinogen Normal mg/dL (Negative) Urine Leukocyte Esterase Negative /uL (Negative) Urine RBC 1 /hpf (0 - 4) Urine Microscopic WBC 3 /HPF (0-5) Urine Squamous Epithelial Cells Few /hpf (<5) Urine Bacteria None seen /hpf (None Seen) Urine Mucus Few (None Seen) Urine Glucose Normal mg/dL (Normal) Lactic Acid Level 1.5 mmol/L (0.4-2.0) B-Type Natriuretic Peptide 25.79 pg/mL (0-100) Other Laboratory Tests 12/16/24 13:40 Brief Hx & Hospital Course: History of Present Illness Laure Glover is a 49-year-old female with past medical history of asthma and obesity, who was brought in by EMS for shortness of breath. When patient arrived to ER she was in respiratory distress. Not able to answer questions, and was intubated shortly after arrival. A person claiming to be her daughter called and spoke with the ER nurse prior to my assessment. She was asked to come to the hospital. Course of hospitalization: Patient was started on empiric antibiotic therapy: Vancomycin, cefepime. Patient was successfully weaned off mechanical ventilation, which was a challenge given patient's underlying asthma as well as anxiety disorder. She was started on bronchodilators, antianxiety medications, as well as Precedex infusion. After being extubated, patient has O2 supplementations remain approximately 2 L, with the patient's room air ABG revealing PaO2 of 56.5. Patient also had problems with deconditioning, complicated with her morbid obesity. Patient was able to increase her mobility, but given her current physical status she will be transferred to a [facility] facility for rehabilitation. Antibiotic therapy we will be discontinued as she received they complete course. She will be continued on bronchodilators as well as Solu- Medrol. Long discussion was made with the patient's mother and daughter regarding plan of care. All questions answered. Physical examination General: Alert and Oriented x3. No acute distress. Well-nourished. Obese Eyes: EOMI. Anicteric. HENT: Moist mucous membranes. Lungs: Clear to auscultation bilaterally. No accessory muscle use. Cardiovascular: Regular rate and rhythm. No murmur. No JVD. Abdomen: Soft, non-tender and non-distended. No palpable masses. Extremities: No edema. Non-tender. Skin: No rashes or lesions. Warm. Neurologic: No focal neurological deficits. CN II-XII grossly intact, but not individually tested. Psychiatric: Cooperative. Appropriate mood and affect. Total time spent with patient discussing and formulating plan of care: 35 minutes. This medical document was created using an electronic medical record system with [employer] system. Although this document has been carefully reviewed, there may still be some phonetic and typographical errors. These areas are purely typographical due to imperfections of the software programs, and do not reflect any compromise in the patient's medical care. Condition at Discharge: Guarded Final Diagnosis/Problems List Acute hypoxic respiratory failure Secondary diagnosis: -asthma exacerbation -morbid obesity -NSTEMI, probably type 2 -Leukocytosis, rule out sepsis given positive blood culture. Questionable contamination -deconditioning Discharge Disposition: Retirement Facility Discharge Instruct/Medications Diet: Regular Activity: No Restrictions, As Tolerated Follow Up/Referral: Follow up with PCP in 1-2 weeks Medications: Refer to medication reconciliation form 36 Discharge Statement: "Patient was advised to return to the ER or call 911 if any headaches, dizziness, shortness of breath, chest pain, abdominal pain, bleeding, fevers, or worsening of medical condition. Patient was counseled about treatment plan, medications, possible side effects, patientverbalized understanding. All questions were answered to the best of my ability. This discharge took greater then 30 minutes in planning, reviewing documentation, counseling the patient, and discussing with other team members." ASSESSMENT ASSESSMENT Assessment Acute hypoxic respiratory failure Date of Service: Dec 18, 2024 Billing Provider: SHANICE DELEON NP Common Visit Codes: [id number] DISCH DAY >30min SHANICE DELEON NP Dec 18, 2024 11:40
[2024-12-19] VITALS (14 sets, daily range): BP systolic 103–134; BP diastolic 44–74; PULSE 86–104; RESP 16–19; TEMP 97.9–99.5; O2SAT 94–100
--- NOTE | 2024-12-19 13:23 | DVHPN2 ---
Subjective Patient reports constipation, back ache. Reviewed: Care Plan, H&P, Labs, Medications Changes from previous H/P or p: No Changes General: Per HPI Respiratory: Shortness of breath Objective Vitals Vital Signs Date Time Temp Pulse Resp B/P (MAP) Pulse Ox O2 Delivery O2 Flow Rate FiO2 12/19/24 13:13 98.9 92 16 111/44 (66) 96 98.9 12/19/24 11:50 Nasal Cannula 3.0 12/19/24 11:50 32 Intake/Output Intake and Output 12/19/24 07:00 Intake Total 550 ml Output Total 925 ml Balance -375 ml Intake Oral 550 ml Output Urine Total 925 ml # Bowel Movements 1 General Appearance: Alert, Oriented X3, Cooperative, mild distress HEENT: Atraumatic, PERRLA Lungs: Clear to auscultation, Normal air movement, Other (Mechanical ventilation) Cardiovascular: Normal S1, Normal S2 Abdomen: Normal bowel sounds, Soft, No tenderness Genitourinary: No Apparent Abnormalities Musculoskeletal: Weak motor strength RUE, Weak motor strength LUE, Weak motor strength RLE, Weak motor strength LLE Extremities: No clubbing, No cyanosis Skin: Dry, Intact Psych/Mental Status: Other (Anxious) Medications Current Medications Medications Dose Ordered Sig/Aren Route Start Time Stop Time Status Last Admin Dose Admin Ondansetron HCl 4 mg Q4HP PRN IV 12/02/24 10:15 12/19/24 11:48 4 MG Enoxaparin Sodium 40 mg DAILY SC 12/03/24 10:00 12/19/24 11:27 40 MG Acetaminophen 650 mg Q6HP PRN PO 12/02/24 10:15 12/18/24 18:21 650 MG Nitroglycerin 0.4 mg Q5MINP PRN SL 12/02/24 10:15 Albuterol 2.5 mg Q6HWA NEB 12/02/24 12:00 12/19/24 11:49 2.5 MG Ipratropium [place] 0.5 mg Q6HWA NEB 12/02/24 12:00 12/19/24 11:49 0.5 MG Albuterol 2.5 mg Q2HPRN PRN NEB 12/04/24 10:15 12/18/24 00:55 2.5 MG Budesonide 0.5 mg BID NEB 12/04/24 22:00 12/19/24 06:27 0.5 MG Sodium Chloride 10 ml QSHIFT@10,22 IV 12/04/24 22:00 12/19/24 11:26 10 ML Pantoprazole Sodium 40 mg DAILY IV 12/07/24 10:45 12/19/24 11:26 40 MG Hydralazine HCl 10 mg Q6HP PRN IV 12/08/24 09:30 12/12/24 11:52 10 MG Lorazepam 1 mg Q8HP PRN IV 12/11/24 10:15 12/13/24 13:16 1 MG Amlodipine Besylate 10 mg DAILY PO 12/13/24 10:00 12/19/24 11:27 10 MG Acetaminophen/ Hydrocodone Bitart 1 tab Q8HPRN PRN PO 12/15/24 12:15 12/15/24 20:11 1 TAB Morphine Sulfate 1 mg Q4HP PRN IV 12/15/24 17:30 12/16/24 03:26 1 MG Bisacodyl 10 mg DAILYP PRN [place] 12/16/24 14:15 Polyethylene Glycol 17 gm DAILY PO 12/19/24 13:15 Laboratory Results Laboratory Tests 12/16/24 13:40 Urinalysis Test 12/02/24 07:12 Urine Color Light-yellow (Yellow) Urine Clarity Clear (Clear) Urine pH 5.0 (5.0-9.0) Urine Specific [place] 1.015 (1.001-1.035) Urine Protein Negative (Negative) Urine Ketones Negative (Negative) Urine Blood Negative /uL (Negative) Urine Nitrite Negative (Negative) Urine Bilirubin Negative (Negative) Urine Urobilinogen Normal mg/dL (Negative) Urine Leukocyte Esterase Negative /uL (Negative) Urine RBC 1 /hpf (0 - 4) Urine Microscopic WBC 3 /HPF (0-5) Urine Squamous Epithelial Cells Few /hpf (<5) Urine Bacteria None seen /hpf (None Seen) Urine Mucus Few (None Seen) Urine Glucose Normal mg/dL (Normal) Microbiology Microbiology Date/Time Source Procedure Growth Status 12/05/24 09:22 Catheter Tip Aerobic Culture - Final Morganella morganii Staphylococcus lugdunensis Complete 12/04/24 15:01 Blood Blood Culture - Final NO GROWTH AFTER 5 DAYS OF INCUBATION. Complete 12/03/24 11:49 Urine - [place] Urine Culture - Final Complete 12/02/24 06:25 Sputum Gram Stain - Final Complete 12/02/24 06:25 Sputum Respiratory Culture - Final Complete Labs and/or images reviewed: Labs reviewed by me, Image(s) reviewed by me Assessment/Plan Assessment/Plan Impression: -acute hypoxic respiratory failure -asthma exacerbation -morbid obesity -NSTEMI, probably type 2 -Leukocytosis, rule out sepsis given positive blood culture. Questionable contamination -deconditioning Course of hospitalization: NO CHANGE IN PLAN OF CARE ON 12/19/2024. PATIENT INSTRUCTED TO PLEASE ATTEMPT TO GET OUT OF BED AND AMBULATE WITH PHYSICAL THERAPY. Events: Continues to be max assist with physical therapy. -MRI of the brain : Negative -social service consultation, pending residential facility placement -Physical therapy: OOB as tolerated -bowel regimen: Continue current bowel regimen -PUD, DVT prophylaxis Total time spent with patient discussing and formulating plan of care: 35 minutes. This medical document was created using an electronic medical record system with [employer] dictation system. Although this document has been carefully reviewed, there may still be some phonetic and typographical errors. These areas are purely typographical due to imperfections of the software programs, and do not reflect any compromise in the patient's medical care. Plan discussed with: Patient, Other (RN) My Orders Orders - SHANICE DELEON NP Procedure Category Date Status Time Polyethylene Glycol PHA 12/19/24 In Process 17g Powder (Miralax 13:15 Date of Service: Dec 19, 2024 Billing Provider: SHANICE DELEON NP Common Visit Codes: [id number] INP/OBS CARE(MOD) SHANICE DELEON NP Dec 19, 2024 13:23
[2024-12-19] MEDS: POLYETHYLENE GLYCOL 17 GM PWDR PO SCH (13:55)
[2024-12-20] VITALS (15 sets, daily range): BP systolic 108–141; BP diastolic 61–73; PULSE 75–120; RESP 16–20; TEMP 97.8–98.8; O2SAT 94–100
--- NOTE | 2024-12-20 09:40 | DVHPN2 ---
Subjective Patient reports constipation, back ache. Reviewed: Care Plan, H&P, Labs, Medications Changes from previous H/P or p: No Changes General: Per HPI Respiratory: Shortness of breath Objective Vitals Vital Signs Date Time Temp Pulse Resp B/P (MAP) Pulse Ox O2 Delivery O2 Flow Rate FiO2 12/20/24 09:00 98.8 77 16 108/68 (81) 96 98.8 12/20/24 07:53 3.0 12/20/24 06:49 Nasal Cannula 12/20/24 06:49 32 Intake/Output Intake and Output 12/20/24 07:00 Intake Total 640 ml Output Total 1850 ml Balance -1210 ml Intake Oral 540 ml IV Total 100 ml Output Urine Total 1850 ml General Appearance: Alert, Oriented X3, Cooperative, mild distress HEENT: Atraumatic, PERRLA Lungs: Clear to auscultation, Normal air movement, Other (Mechanical ventilation) Cardiovascular: Normal S1, Normal S2 Abdomen: Normal bowel sounds, Soft, No tenderness Genitourinary: No Apparent Abnormalities Musculoskeletal: Weak motor strength RUE, Weak motor strength LUE, Weak motor strength RLE, Weak motor strength LLE Extremities: No clubbing, No cyanosis Skin: Dry, Intact Psych/Mental Status: Other (Anxious) Medications Current Medications Medications Dose Ordered Sig/Aren Route Start Time Stop Time Status Last Admin Dose Admin Ondansetron HCl 4 mg Q4HP PRN IV 12/02/24 10:15 12/19/24 11:48 4 MG Enoxaparin Sodium 40 mg DAILY SC 12/03/24 10:00 12/19/24 11:27 40 MG Acetaminophen 650 mg Q6HP PRN PO 12/02/24 10:15 12/19/24 21:23 650 MG Nitroglycerin 0.4 mg Q5MINP PRN SL 12/02/24 10:15 Albuterol 2.5 mg Q6HWA NEB 12/02/24 12:00 12/20/24 06:49 2.5 MG Ipratropium [place] 0.5 mg Q6HWA NEB 12/02/24 12:00 12/20/24 06:49 0.5 MG Albuterol 2.5 mg Q2HPRN PRN NEB 12/04/24 10:15 12/18/24 00:55 2.5 MG Budesonide 0.5 mg BID NEB 12/04/24 22:00 12/20/24 06:49 0.5 MG Sodium Chloride 10 ml QSHIFT@10,22 IV 12/04/24 22:00 12/19/24 21:31 10 ML Pantoprazole Sodium 40 mg DAILY IV 12/07/24 10:45 12/19/24 11:26 40 MG Hydralazine HCl 10 mg Q6HP PRN IV 12/08/24 09:30 12/12/24 11:52 10 MG Lorazepam 1 mg Q8HP PRN IV 12/11/24 10:15 12/13/24 13:16 1 MG Amlodipine Besylate 10 mg DAILY PO 12/13/24 10:00 12/19/24 11:27 10 MG Acetaminophen/ Hydrocodone Bitart 1 tab Q8HPRN PRN PO 12/15/24 12:15 12/15/24 20:11 1 TAB Morphine Sulfate 1 mg Q4HP PRN IV 12/15/24 17:30 12/16/24 03:26 1 MG Bisacodyl 10 mg DAILYP PRN [place] 12/16/24 14:15 Polyethylene Glycol 17 gm DAILY PO 12/19/24 13:15 12/19/24 13:55 17 GM Laboratory Results Laboratory Tests 12/16/24 13:40 Urinalysis Test 12/02/24 07:12 Urine Color Light-yellow (Yellow) Urine Clarity Clear (Clear) Urine pH 5.0 (5.0-9.0) Urine Specific [place] 1.015 (1.001-1.035) Urine Protein Negative (Negative) Urine Ketones Negative (Negative) Urine Blood Negative /uL (Negative) Urine Nitrite Negative (Negative) Urine Bilirubin Negative (Negative) Urine Urobilinogen Normal mg/dL (Negative) Urine Leukocyte Esterase Negative /uL (Negative) Urine RBC 1 /hpf (0 - 4) Urine Microscopic WBC 3 /HPF (0-5) Urine Squamous Epithelial Cells Few /hpf (<5) Urine Bacteria None seen /hpf (None Seen) Urine Mucus Few (None Seen) Urine Glucose Normal mg/dL (Normal) Microbiology Microbiology Date/Time Source Procedure Growth Status 12/05/24 09:22 Catheter Tip Aerobic Culture - Final Morganella morganii Staphylococcus lugdunensis Complete 12/04/24 15:01 Blood Blood Culture - Final NO GROWTH AFTER 5 DAYS OF INCUBATION. Complete 12/03/24 11:49 Urine - [place] Urine Culture - Final Complete 12/02/24 06:25 Sputum Gram Stain - Final Complete 12/02/24 06:25 Sputum Respiratory Culture - Final Complete Labs and/or images reviewed: Labs reviewed by me, Image(s) reviewed by me Assessment/Plan Assessment/Plan Impression: -acute hypoxic respiratory failure -asthma exacerbation -morbid obesity -NSTEMI, probably type 2 -Leukocytosis, rule out sepsis given positive blood culture. Questionable contamination -deconditioning Course of hospitalization: Continue with efforts to place patient as care home facility. Events: Continues to be max assist with physical therapy. -advanced to regular diet -restart home anxiolytic: Hydroxyzine -bowel regimen -social service consultation, pending care home facility placement -Physical therapy: OOB as tolerated -PUD, DVT prophylaxis Total time spent with patient discussing and formulating plan of care: 35 minutes. This medical document was created using an electronic medical record system with [employer] dictation system. Although this document has been carefully reviewed, there may still be some phonetic and typographical errors. These areas are purely typographical due to imperfections of the software programs, and do not reflect any compromise in the patient's medical care. Plan discussed with: Patient, Other (RN) My Orders Orders - SHANICE DELEON NP Procedure Category Date Status Time Polyethylene Glycol PHA 12/19/24 In Process 17g Powder (Miralax 13:15 * Wound Consult CONS 12/20/24 Transmitted Date of Service: Dec 20, 2024 Billing Provider: SHANICE DELEON NP Common Visit Codes: [id number] INP/OBS CARE(HIGH) SHANICE DELEON NP Dec 20, 2024 09:40
[2024-12-20] MEDS: BISACODYL 10 MG RECT SUPP PR ONE (09:45)
[2024-12-20] MEDS ORDERED: BISACODYL 10 MG RECT SUPP PR PRN (09:45)
[2024-12-20] MEDS: hydrOXYzine 25 MG TAB or CAP PO PRN (10:54)
[2024-12-20] MEDS ORDERED: TEMAZEPAM 15 MG CAP PO PRN (22:00)
[2024-12-21] VITALS (17 sets, daily range): BP systolic 117–149; BP diastolic 67–79; PULSE 82–120; RESP 16–20; TEMP 97.9–98.3; O2SAT 92–99
--- NOTE | 2024-12-21 09:58 | DVHPN2 ---
Subjective Patient reports constipation, back ache. Reviewed: Care Plan, H&P, Labs, Medications Changes from previous H/P or p: No Changes General: Per HPI Respiratory: Shortness of breath Objective Vitals Vital Signs Date Time Temp Pulse Resp B/P (MAP) Pulse Ox O2 Delivery O2 Flow Rate FiO2 12/21/24 09:33 150/82 12/21/24 08:30 98.0 89 18 95 98.0 12/21/24 06:47 Nasal Cannula* 3 32 Intake/Output Intake and Output 12/21/24 07:00 Intake Total 1726 ml Output Total 1450 ml Balance 276 ml Intake Oral 1726 ml Output Urine Total 1450 ml General Appearance: Alert, Oriented X3, Cooperative, mild distress HEENT: Atraumatic, PERRLA Lungs: Clear to auscultation, Normal air movement, Other (Mechanical ventilation) Cardiovascular: Normal S1, Normal S2 Abdomen: Normal bowel sounds, Soft, No tenderness Genitourinary: No Apparent Abnormalities Musculoskeletal: Weak motor strength RUE, Weak motor strength LUE, Weak motor strength RLE, Weak motor strength LLE Extremities: No clubbing, No cyanosis Skin: Dry, Intact Psych/Mental Status: Other (Anxious) Medications Current Medications Medications Dose Ordered Sig/Aren Route Start Time Stop Time Status Last Admin Dose Admin Ondansetron HCl 4 mg Q4HP PRN IV 12/02/24 10:15 12/20/24 11:20 4 MG Enoxaparin Sodium 40 mg DAILY SC 12/03/24 10:00 12/21/24 09:33 40 MG Acetaminophen 650 mg Q6HP PRN PO 12/02/24 10:15 12/19/24 21:23 650 MG Nitroglycerin 0.4 mg Q5MINP PRN SL 12/02/24 10:15 Albuterol 2.5 mg Q6HWA NEB 12/02/24 12:00 12/21/24 06:47 2.5 MG Ipratropium [place] 0.5 mg Q6HWA NEB 12/02/24 12:00 12/21/24 06:47 0.5 MG Albuterol 2.5 mg Q2HPRN PRN NEB 12/04/24 10:15 12/18/24 00:55 2.5 MG Budesonide 0.5 mg BID NEB 12/04/24 22:00 12/21/24 06:47 0.5 MG Sodium Chloride 10 ml QSHIFT@10,22 IV 12/04/24 22:00 12/21/24 09:33 10 ML Pantoprazole Sodium 40 mg DAILY IV 12/07/24 10:45 12/21/24 09:33 40 MG Hydralazine HCl 10 mg Q6HP PRN IV 12/08/24 09:30 12/12/24 11:52 10 MG Lorazepam 1 mg Q8HP PRN IV 12/11/24 10:15 12/13/24 13:16 1 MG Amlodipine Besylate 10 mg DAILY PO 12/13/24 10:00 12/21/24 09:33 10 MG Acetaminophen/ Hydrocodone Bitart 1 tab Q8HPRN PRN PO 12/15/24 12:15 12/15/24 20:11 1 TAB Morphine Sulfate 1 mg Q4HP PRN IV 12/15/24 17:30 12/16/24 03:26 1 MG Bisacodyl 10 mg DAILYP PRN [place] 12/16/24 14:15 Polyethylene Glycol 17 gm DAILY PO 12/19/24 13:15 12/21/24 09:32 17 GM Hydroxyzine Pamo[place] 25 mg Q6HP PRN PO 12/20/24 09:45 12/20/24 10:54 25 MG Bisacodyl 10 mg DAILYP PRN [place] 12/20/24 09:45 Temazepam 15 mg HSPRN PRN PO 12/20/24 22:00 Laboratory Results Laboratory Tests 12/16/24 13:40 Urinalysis Test 12/02/24 07:12 Urine Color Light-yellow (Yellow) Urine Clarity Clear (Clear) Urine pH 5.0 (5.0-9.0) Urine Specific [place] 1.015 (1.001-1.035) Urine Protein Negative (Negative) Urine Ketones Negative (Negative) Urine Blood Negative /uL (Negative) Urine Nitrite Negative (Negative) Urine Bilirubin Negative (Negative) Urine Urobilinogen Normal mg/dL (Negative) Urine Leukocyte Esterase Negative /uL (Negative) Urine RBC 1 /hpf (0 - 4) Urine Microscopic WBC 3 /HPF (0-5) Urine Squamous Epithelial Cells Few /hpf (<5) Urine Bacteria None seen /hpf (None Seen) Urine Mucus Few (None Seen) Urine Glucose Normal mg/dL (Normal) Microbiology Microbiology Date/Time Source Procedure Growth Status 12/05/24 09:22 Catheter Tip Aerobic Culture - Final Morganella morganii Staphylococcus lugdunensis Complete 12/04/24 15:01 Blood Blood Culture - Final NO GROWTH AFTER 5 DAYS OF INCUBATION. Complete 12/03/24 11:49 Urine - [place] Urine Culture - Final Complete 12/02/24 06:25 Sputum Gram Stain - Final Complete 12/02/24 06:25 Sputum Respiratory Culture - Final Complete Labs and/or images reviewed: Labs reviewed by me, Image(s) reviewed by me Assessment/Plan Assessment/Plan Impression: -acute hypoxic respiratory failure -asthma exacerbation -morbid obesity -NSTEMI, probably type 2 -Leukocytosis, rule out sepsis given positive blood culture. Questionable contamination -deconditioning Course of hospitalization: Continue with efforts to place patient as residential facility. Events: Continues to be max assist with physical therapy. -Continue Hydroxyzine -bowel regimen -social service consultation, pending residential facility placement -Physical therapy: OOB as tolerated -PUD, DVT prophylaxis Total time spent with patient discussing and formulating plan of care: 35 minutes. This medical document was created using an electronic medical record system with [employer] dictation system. Although this document has been carefully reviewed, there may still be some phonetic and typographical errors. These areas are purely typographical due to imperfections of the software programs, and do not reflect any compromise in the patient's medical care. Plan discussed with: Patient, Daughter, Other (RN) Date of Service: Dec 21, 2024 Billing Provider: SHANICE DELEON NP Common Visit Codes: [id number] INP/OBS CARE(HIGH) SHANICE DELEON NP Dec 21, 2024 09:58
[2024-12-21] MEDS: BISACODYL 10 MG RECT SUPP PR PRN (20:51)
[2024-12-22] VITALS (13 sets, daily range): BP systolic 113–140; BP diastolic 58–89; PULSE 88–107; RESP 17–19; TEMP 97.3–98.4; O2SAT 92–100
--- NOTE | 2024-12-22 10:12 | DVHPN2 ---
Subjective Patient reports constipation, back ache. Reviewed: Care Plan, H&P, Labs, Medications Changes from previous H/P or p: No Changes General: Per HPI Respiratory: Shortness of breath Objective Vitals Vital Signs Date Time Temp Pulse Resp B/P (MAP) Pulse Ox O2 Delivery O2 Flow Rate FiO2 12/22/24 10:00 Nasal Cannula 3.0 12/22/24 10:00 32 12/22/24 09:20 124/59 12/22/24 09:00 97.3 90 18 97 97.3 Intake/Output Intake and Output 12/22/24 07:00 Intake Total 4010 ml Output Total 2400 ml Balance 1610 ml Intake Oral 4010 ml Output Urine Total 2400 ml # Bowel Movements 1 General Appearance: Alert, Oriented X3, Cooperative, mild distress HEENT: Atraumatic, PERRLA Lungs: Clear to auscultation, Normal air movement, Other (Mechanical ventilation) Cardiovascular: Normal S1, Normal S2 Abdomen: Normal bowel sounds, Soft, No tenderness Genitourinary: No Apparent Abnormalities Musculoskeletal: Weak motor strength RUE, Weak motor strength LUE, Weak motor strength RLE, Weak motor strength LLE Extremities: No clubbing, No cyanosis Skin: Dry, Intact Psych/Mental Status: Other (Anxious) Medications Current Medications Medications Dose Ordered Sig/Aren Route Start Time Stop Time Status Last Admin Dose Admin Ondansetron HCl 4 mg Q4HP PRN IV 12/02/24 10:15 12/22/24 00:05 4 MG Enoxaparin Sodium 40 mg DAILY SC 12/03/24 10:00 12/22/24 09:21 40 MG Acetaminophen 650 mg Q6HP PRN PO 12/02/24 10:15 12/19/24 21:23 650 MG Nitroglycerin 0.4 mg Q5MINP PRN SL 12/02/24 10:15 Albuterol 2.5 mg Q6HWA NEB 12/02/24 12:00 12/22/24 06:33 2.5 MG Ipratropium [place] 0.5 mg Q6HWA NEB 12/02/24 12:00 12/22/24 06:33 0.5 MG Albuterol 2.5 mg Q2HPRN PRN NEB 12/04/24 10:15 12/18/24 00:55 2.5 MG Budesonide 0.5 mg BID NEB 12/04/24 22:00 12/22/24 06:33 0.5 MG Sodium Chloride 10 ml QSHIFT@10,22 IV 12/04/24 22:00 12/22/24 09:20 10 ML Pantoprazole Sodium 40 mg DAILY IV 12/07/24 10:45 12/22/24 09:20 40 MG Hydralazine HCl 10 mg Q6HP PRN IV 12/08/24 09:30 12/12/24 11:52 10 MG Lorazepam 1 mg Q8HP PRN IV 12/11/24 10:15 12/13/24 13:16 1 MG Amlodipine Besylate 10 mg DAILY PO 12/13/24 10:00 12/22/24 09:20 10 MG Acetaminophen/ Hydrocodone Bitart 1 tab Q8HPRN PRN PO 12/15/24 12:15 12/15/24 20:11 1 TAB Morphine Sulfate 1 mg Q4HP PRN IV 12/15/24 17:30 12/16/24 03:26 1 MG Bisacodyl 10 mg DAILYP PRN [place] 12/16/24 14:15 12/21/24 20:51 10 MG Polyethylene Glycol 17 gm DAILY PO 12/19/24 13:15 12/22/24 09:20 17 GM Hydroxyzine Pamoate 25 mg Q6HP PRN PO 12/20/24 09:45 12/21/24 20:51 25 MG Bisacodyl 10 mg DAILYP PRN [place] 12/20/24 09:45 Temazepam 15 mg HSPRN PRN PO 12/20/24 22:00 Laboratory Results Laboratory Tests 12/16/24 13:40 Urinalysis Test 12/02/24 07:12 Urine Color Light-yellow (Yellow) Urine Clarity Clear (Clear) Urine pH 5.0 (5.0-9.0) Urine Specific [place] 1.015 (1.001-1.035) Urine Protein Negative (Negative) Urine Ketones Negative (Negative) Urine Blood Negative /uL (Negative) Urine Nitrite Negative (Negative) Urine Bilirubin Negative (Negative) Urine Urobilinogen Normal mg/dL (Negative) Urine Leukocyte Esterase Negative /uL (Negative) Urine RBC 1 /hpf (0 - 4) Urine Microscopic WBC 3 /HPF (0-5) Urine Squamous Epithelial Cells Few /hpf (<5) Urine Bacteria None seen /hpf (None Seen) Urine Mucus Few (None Seen) Urine Glucose Normal mg/dL (Normal) Microbiology Microbiology Date/Time Source Procedure Growth Status 12/05/24 09:22 Catheter Tip Aerobic Culture - Final Morganella morganii Staphylococcus lugdunensis Complete 12/04/24 15:01 Blood Blood Culture - Final NO GROWTH AFTER 5 DAYS OF INCUBATION. Complete 12/03/24 11:49 Urine - [place] Urine Culture - Final Complete 12/02/24 06:25 Sputum Gram Stain - Final Complete 12/02/24 06:25 Sputum Respiratory Culture - Final Complete Labs and/or images reviewed: Labs reviewed by me, Image(s) reviewed by me Assessment/Plan Assessment/Plan Impression: -acute hypoxic respiratory failure -asthma exacerbation -morbid obesity -NSTEMI, probably type 2 -Leukocytosis, rule out sepsis given positive blood culture. Questionable contamination -deconditioning Course of hospitalization: Continue with efforts to place patient as long-term facility. No change in A/P on 12/22/24 Events: Continues to be max assist with physical therapy. -Continue Hydroxyzine -bowel regimen -social service consultation, pending long-term facility placement -Physical therapy: OOB as tolerated -PUD, DVT prophylaxis Total time spent with patient discussing and formulating plan of care: 35 minutes. This medical document was created using an electronic medical record system with [employer] dictation system. Although this document has been carefully reviewed, there may still be some phonetic and typographical errors. These areas are purely typographical due to imperfections of the software programs, and do not reflect any compromise in the patient's medical care. Plan discussed with: Patient, Other (RN) Date of Service: Dec 22, 2024 Billing Provider: SHANICE DELEON NP Common Visit Codes: [id number] INP/OBS CARE(HIGH) SHANICE DELEON NP Dec 22, 2024 10:11
[2024-12-23] VITALS (19 sets, daily range): BP systolic 111–128; BP diastolic 54–84; PULSE 65–111; RESP 16–22; TEMP 98.1–98.7; O2SAT 92–100
--- NOTE | 2024-12-23 10:49 | DVHPN2 ---
Subjective Patient reports constipation, back ache. Reviewed: Care Plan, H&P, Labs, Medications Changes from previous H/P or p: No Changes General: Per HPI Respiratory: Shortness of breath Objective Vitals Vital Signs Date Time Temp Pulse Resp B/P (MAP) Pulse Ox O2 Delivery O2 Flow Rate FiO2 12/23/24 09:53 128/54 12/23/24 09:00 98.1 91 18 93 98.1 12/23/24 07:50 3.0 12/23/24 06:45 Nasal Cannula 12/23/24 06:45 32 Intake/Output Intake and Output 12/23/24 07:00 Intake Total 1540 ml Output Total 1175 ml Balance 365 ml Intake Oral 1540 ml Output Urine Total 1175 ml # Voids 1 General Appearance: Alert, Oriented X3, Cooperative, mild distress HEENT: Atraumatic, PERRLA Lungs: Clear to auscultation, Normal air movement, Other Cardiovascular: Normal S1, Normal S2 Abdomen: Normal bowel sounds, Soft, No tenderness Genitourinary: No Apparent Abnormalities Musculoskeletal: Weak motor strength RUE, Weak motor strength LUE, Weak motor strength RLE, Weak motor strength LLE Extremities: No clubbing, No cyanosis Skin: Dry, Intact Psych/Mental Status: Other Medications Current Medications Medications Dose Ordered Sig/Aren Route Start Time Stop Time Status Last Admin Dose Admin Ondansetron HCl 4 mg Q4HP PRN IV 12/02/24 10:15 12/22/24 22:10 4 MG Enoxaparin Sodium 40 mg DAILY [place] 12/03/24 10:00 12/23/24 09:53 40 MG Acetaminophen 650 mg Q6HP PRN PO 12/02/24 10:15 12/19/24 21:23 650 MG Nitroglycerin 0.4 mg Q5MINP PRN [place] 12/02/24 10:15 Albuterol 2.5 mg Q6HWA NEB 12/02/24 12:00 12/23/24 06:45 2.5 MG Ipratropium [place] 0.5 mg Q6HWA NEB 12/02/24 12:00 12/23/24 06:45 0.5 MG Albuterol 2.5 mg Q2HPRN PRN NEB 12/04/24 10:15 12/23/24 00:05 2.5 MG Budesonide 0.5 mg BID NEB 12/04/24 22:00 12/23/24 06:45 0.5 MG Sodium Chloride 10 ml QSHIFT@10,22 IV 12/04/24 22:00 12/23/24 09:53 10 ML Pantoprazole Sodium 40 mg DAILY IV 12/07/24 10:45 12/23/24 09:52 40 MG Hydralazine HCl 10 mg Q6HP PRN IV 12/08/24 09:30 12/12/24 11:52 10 MG Lorazepam 1 mg Q8HP PRN IV 12/11/24 10:15 12/13/24 13:16 1 MG Amlodipine Besylate 10 mg DAILY PO 12/13/24 10:00 12/23/24 09:53 10 MG Acetaminophen/ Hydrocodone Bitart 1 tab Q8HPRN PRN PO 12/15/24 12:15 12/15/24 20:11 1 TAB Morphine Sulfate 1 mg Q4HP PRN IV 12/15/24 17:30 12/16/24 03:26 1 MG Bisacodyl 10 mg DAILYP PRN [place] 12/16/24 14:15 12/21/24 20:51 10 MG Polyethylene Glycol 17 gm DAILY PO 12/19/24 13:15 12/23/24 09:50 17 GM Hydroxyzine [place]amo[place] 25 mg Q6HP PRN PO 12/20/24 09:45 12/22/24 22:09 25 MG Bisacodyl 10 mg DAILYP PRN [place] 12/20/24 09:45 Temazepam 15 mg HSPRN PRN PO 12/20/24 22:00 Laboratory Results Laboratory Tests 12/16/24 13:40 Urinalysis Test 12/02/24 07:12 Urine Color Light-yellow (Yellow) Urine Clarity Clear (Clear) Urine pH 5.0 (5.0-9.0) Urine Specific [place] 1.015 (1.001-1.035) Urine Protein Negative (Negative) Urine Ketones Negative (Negative) Urine Blood Negative /uL (Negative) Urine Nitrite Negative (Negative) Urine Bilirubin Negative (Negative) Urine Urobilinogen Normal mg/dL (Negative) Urine Leukocyte Esterase Negative /uL (Negative) Urine RBC 1 /hpf (0 - 4) Urine Microscopic WBC 3 /HPF (0-5) Urine Squamous Epithelial Cells Few /hpf (<5) Urine Bacteria None seen /hpf (None Seen) Urine Mucus Few (None Seen) Urine Glucose Normal mg/dL (Normal) Microbiology Microbiology Date/Time Source Procedure Growth Status 12/05/24 09:22 Catheter Tip Aerobic Culture - Final Morganella morganii Staphylococcus lugdunensis Complete 12/04/24 15:01 Blood Blood Culture - Final NO GROWTH AFTER 5 DAYS OF INCUBATION. Complete 12/03/24 11:49 Urine - [place] Urine Culture - Final Complete 12/02/24 06:25 Sputum Gram Stain - Final Complete 12/02/24 06:25 Sputum Respiratory Culture - Final Complete Labs and/or images reviewed: Labs reviewed by me, Image(s) reviewed by me Assessment/Plan Assessment/Plan Impression: -acute hypoxic respiratory failure -asthma exacerbation -morbid obesity -NSTEMI, probably type 2 -Leukocytosis, rule out sepsis given positive blood culture. Questionable contamination -deconditioning Course of hospitalization: Events: Ambulated probably to feet with physical therapy. Patient reporting lower back pain. We will add lidocaine patch to assist with her rehabilitation. -Continue Hydroxyzine -bowel regimen -social service consultation, pending long term facility placement -Physical therapy: OOB as tolerated -PUD, DVT prophylaxis Total time spent with patient discussing and formulating plan of care: 35 minutes. This medical document was created using an electronic medical record system with [employer] dictation system. Although this document has been carefully reviewed, there may still be some phonetic and typographical errors. These areas are purely typographical due to imperfections of the software programs, and do not reflect any compromise in the patient's medical care. Plan discussed with: Patient, Other (RN) My Orders Orders - SHANICE DELEON NP Procedure Category Date Status Time Lidocaine 5% Topical PHA 12/23/24 Verified Patch (Lidoderm 5% 11:00 Date of Service: Dec 23, 2024 Billing Provider: SHANICE DELEON NP Common Visit Codes: [id number] INP/OBS CARE(MOD) SHANICE DELEON NP Dec 23, 2024 10:49
[2024-12-23] MEDS: LIDOCAINE 5% TOPICAL PATCH TOP SCH (12:19)
[2024-12-24] VITALS (16 sets, daily range): BP systolic 101–152; BP diastolic 66–87; PULSE 74–105; RESP 16–20; TEMP 97.6–98.7; O2SAT 91–100
[2024-12-24 06:24] LABS: Urine Budding Yeast LOADED /hpf (None Seen); Urine Hyphae Yeast PRESENT /hpf; Urine Protein, UAD TRACE (Negative)
--- NOTE | 2024-12-24 09:58 | DVHPN2 ---
Subjective Patient reports constipation, back ache. Reviewed: Care Plan, H&P, Labs, Medications Changes from previous H/P or p: No Changes General: Per HPI Respiratory: Shortness of breath Objective Vitals Vital Signs Date Time Temp Pulse Resp B/P (MAP) Pulse Ox O2 Delivery O2 Flow Rate FiO2 12/24/24 08:54 109/66 12/24/24 06:24 82 16 100 12/24/24 06:14 Nasal Cannula* 3 32 12/24/24 05:00 98.7 98.7 Intake/Output Intake and Output 12/24/24 07:00 Intake Total 1950 ml Output Total 1450 ml Balance 500 ml Intake Oral 1950 ml Output Urine Total 1450 ml # Bowel Movements 3 General Appearance: Alert, Oriented X3, Cooperative, mild distress HEENT: Atraumatic, PERRLA Lungs: Clear to auscultation, Normal air movement, Other Cardiovascular: Normal S1, Normal S2 Abdomen: Normal bowel sounds, Soft, No tenderness Genitourinary: No Apparent Abnormalities Musculoskeletal: Weak motor strength RUE, Weak motor strength LUE, Weak motor strength RLE, Weak motor strength LLE Extremities: No clubbing, No cyanosis Neuro: Cranial nerves 3-12 NL Skin: Dry, Intact Psych/Mental Status: Other Medications Current Medications Medications Dose Ordered Sig/Aren Route Start Time Stop Time Status Last Admin Dose Admin Ondansetron HCl 4 mg Q4HP PRN IV 12/02/24 10:15 12/22/24 22:10 4 MG Enoxaparin Sodium 40 mg DAILY SC 12/03/24 10:00 12/24/24 08:54 40 MG Acetaminophen 650 mg Q6HP PRN PO 12/02/24 10:15 12/19/24 21:23 650 MG Nitroglycerin 0.4 mg Q5MINP PRN SL 12/02/24 10:15 Albuterol 2.5 mg Q6HWA NEB 12/02/24 12:00 12/24/24 06:14 2.5 MG Ipratropium [place] 0.5 mg Q6HWA NEB 12/02/24 12:00 12/24/24 06:14 0.5 MG Budesonide 0.5 mg BID NEB 12/04/24 22:00 12/24/24 06:14 0.5 MG Sodium Chloride 10 ml QSHIFT@,22 IV 12/04/24 22:00 12/24/24 08:55 10 ML Hydralazine HCl 10 mg Q6HP PRN IV 12/08/24 09:30 12/12/24 11:52 10 MG Amlodipine Besylate 10 mg DAILY PO 12/13/24 10:00 12/24/24 08:54 10 MG Acetaminophen/ Hydrocodone Bitart 1 tab Q8HPRN PRN PO 12/15/24 12:15 12/15/24 20:11 1 TAB Morphine Sulfate 1 mg Q4HP PRN IV 12/15/24 17:30 12/16/24 03:26 1 MG Bisacodyl 10 mg DAILYP PRN [place] 12/16/24 14:15 12/21/24 20:51 10 MG Polyethylene Glycol 17 gm DAILY PO 12/19/24 13:15 12/23/24 09:50 17 GM Hydroxyzine Pamoate 25 mg Q6HP PRN PO 12/20/24 09:45 12/22/24 22:09 25 MG Bisacodyl 10 mg DAILYP PRN [place] 12/20/24 09:45 Lidocaine 1 patch DAILY TOP 12/23/24 11:00 12/23/24 12:19 1 PATCH Laboratory Results Laboratory Tests 12/16/24 13:40 Urinalysis Test 12/24/24 05:20 Urine Color Light-yellow (Yellow) Urine Clarity Turbid (Clear) H Urine pH 7.5 (5.0-9.0) Urine Specific [place] 1.017 (1.001-1.035) Urine Protein Trace (Negative) H Urine Ketones Negative (Negative) Urine Blood 3+ /uL (Negative) H Urine Nitrite Negative (Negative) Urine Bilirubin Negative (Negative) Urine Urobilinogen 2 mg/dL (Negative) H Urine Leukocyte Esterase 3+ /uL (Negative) Urine RBC 446 /hpf (0 - 4) Urine Microscopic WBC 165 /HPF (0-5) H Urine Squamous Epithelial Cells None seen /hpf (<5) Urine Triple Phosphate Crystals Few /hpf (None Seen) Urine Bacteria None seen /hpf (None Seen) Urine Mucus Few (None Seen) Urine Yeast with Hyphae Present /hpf Urine Yeast (Budding) Loaded /hpf (None Seen) Urine Glucose Normal mg/dL (Normal) Microbiology Microbiology Date/Time Source Procedure Growth Status 12/05/24 09:22 Catheter Tip Aerobic Culture - Final Morganella morganii Staphylococcus lugdunensis Complete 12/04/24 15:01 Blood Blood Culture - Final NO GROWTH AFTER 5 DAYS OF INCUBATION. Complete 12/03/24 11:49 Urine - [place] Urine Culture - Final Complete 12/02/24 06:25 Sputum Gram Stain - Final Complete 12/02/24 06:25 Sputum Respiratory Culture - Final Complete Labs and/or images reviewed: Labs reviewed by me, Image(s) reviewed by me Assessment/Plan Assessment/Plan Impression: -acute hypoxic respiratory failure -asthma exacerbation -morbid obesity -NSTEMI, probably type 2 -Leukocytosis, rule out sepsis given positive blood culture. Questionable contamination -deconditioning Course of hospitalization: Events: No events overnight. Improvement with physical therapy. Patient instructed that she needs to continue forcing herself to ambulate further. Out of bed for meals. Wean off oxygen. -Continue Hydroxyzine -bowel regimen -social service consultation, pending half-way facility placement -Physical therapy: OOB as tolerated -PUD, DVT prophylaxis Total time spent with patient discussing and formulating plan of care: 35 minutes. This medical document was created using an electronic medical record system with [employer] dictation system. Although this document has been carefully reviewed, there may still be some phonetic and typographical errors. These areas are purely typographical due to imperfections of the software programs, and do not reflect any compromise in the patient's medical care. Plan discussed with: Patient, Other (RN) My Orders Orders - SHANICE DELEON NP Procedure Category Date Status Time Lidocaine 5% Topical PHA 12/23/24 In Process Patch (Lidoderm 5% 11:00 Communication Order ORDERS 12/24/24 Transmitted 09:50 Transfer Orders XFER 12/24/24 Transmitted 09:50 Date of Service: Dec 24, 2024 Billing Provider: SHANICE DELEON NP Common Visit Codes: [id number] INP/OBS CARE(MOD) SHANICE DELEON NP Dec 24, 2024 09:58
[2024-12-25] VITALS (14 sets, daily range): BP systolic 134–146; BP diastolic 73–80; PULSE 84–103; RESP 12–22; TEMP 97.4–98.4; O2SAT 91–100
--- NOTE | 2024-12-25 11:10 | DVHPN2 ---
Subjective Patient reports constipation, back ache. Reviewed: Care Plan, H&P, Labs, Medications Changes from previous H/P or p: No Changes General: Per HPI Respiratory: Shortness of breath Objective Vitals Vital Signs Date Time Temp Pulse Resp B/P (MAP) Pulse Ox O2 Delivery O2 Flow Rate FiO2 12/25/24 10:35 134/80 12/25/24 09:17 98.4 96 12 94 98.4 12/25/24 06:20 Nasal Cannula* 2 28 Intake/Output Intake and Output 12/25/24 07:00 Intake Total 375 ml Balance 375 ml Intake Oral 375 ml # Voids 3 # Bowel Movements 3 General Appearance: Alert, Oriented X3, Cooperative, mild distress HEENT: Atraumatic, PERRLA Lungs: Clear to auscultation, Normal air movement, Other Cardiovascular: Normal S1, Normal S2 Abdomen: Normal bowel sounds, Soft, No tenderness Genitourinary: No Apparent Abnormalities Musculoskeletal: Weak motor strength RUE, Weak motor strength LUE, Weak motor strength RLE, Weak motor strength LLE Extremities: No clubbing, No cyanosis Neuro: Cranial nerves 3-12 NL Skin: Dry, Intact Psych/Mental Status: Other Medications Current Medications Medications Dose Ordered Sig/Aren Route Start Time Stop Time Status Last Admin Dose Admin Ondansetron HCl 4 mg Q4HP PRN IV 12/02/24 10:15 12/22/24 22:10 4 MG Enoxaparin Sodium 40 mg DAILY SC 12/03/24 10:00 12/25/24 10:36 40 MG Acetaminophen 650 mg Q6HP PRN PO 12/02/24 10:15 12/19/24 21:23 650 MG Nitroglycerin 0.4 mg Q5MINP PRN SL 12/02/24 10:15 Albuterol 2.5 mg Q6HWA NEB 12/02/24 12:00 12/25/24 06:20 2.5 MG Ipratropium [place] 0.5 mg Q6HWA NEB 12/02/24 12:00 12/25/24 06:20 0.5 MG Budesonide 0.5 mg BID NEB 12/04/24 22:00 12/25/24 06:20 0.5 MG Sodium Chloride 10 ml QSHIFT@10,22 IV 12/04/24 22:00 12/25/24 10:36 10 ML Hydralazine HCl 10 mg Q6HP PRN IV 12/08/24 09:30 12/12/24 11:52 10 MG Amlodipine Besylate 10 mg DAILY PO 12/13/24 10:00 12/25/24 10:35 10 MG Bisacodyl 10 mg DAILYP PRN [place] 12/16/24 14:15 12/21/24 20:51 10 MG Polyethylene Glycol 17 gm DAILY PO 12/19/24 13:15 12/23/24 09:50 17 GM Hydroxyzine Pamoate 25 mg Q6HP PRN PO 12/20/24 09:45 12/24/24 23:14 25 MG Bisacodyl 10 mg DAILYP PRN [place] 12/20/24 09:45 Lidocaine 1 patch DAILY TOP 12/23/24 11:00 12/25/24 10:37 1 PATCH Laboratory Results Laboratory Tests 12/16/24 13:40 Urinalysis Test 12/24/24 05:20 Urine Color Light-yellow (Yellow) Urine Clarity Turbid (Clear) H Urine pH 7.5 (5.0-9.0) Urine Specific [place] 1.017 (1.001-1.035) Urine Protein Trace (Negative) H Urine Ketones Negative (Negative) Urine Blood 3+ /uL (Negative) H Urine Nitrite Negative (Negative) Urine Bilirubin Negative (Negative) Urine Urobilinogen 2 mg/dL (Negative) H Urine Leukocyte Esterase 3+ /uL (Negative) Urine RBC 446 /hpf (0 - 4) Urine Microscopic WBC 165 /HPF (0-5) H Urine Squamous Epithelial Cells None seen /hpf (<5) Urine Triple Phosphate Crystals Few /hpf (None Seen) Urine Bacteria None seen /hpf (None Seen) Urine Mucus Few (None Seen) Urine Yeast with Hyphae Present /hpf Urine Yeast (Budding) Loaded /hpf (None Seen) Urine Glucose Normal mg/dL (Normal) Microbiology Microbiology Date/Time Source Procedure Growth Status 12/05/24 09:22 Catheter Tip Aerobic Culture - Final Morganella morganii Staphylococcus lugdunensis Complete 12/04/24 15:01 Blood Blood Culture - Final NO GROWTH AFTER 5 DAYS OF INCUBATION. Complete 12/03/24 11:49 Urine - [place] Urine Culture - Final Complete 12/02/24 06:25 Sputum Gram Stain - Final Complete 9/3/25 06:25 Sputum Respiratory Culture - Final Complete Labs and/or images reviewed: Labs reviewed by me, Image(s) reviewed by me Assessment/Plan Assessment/Plan Impression: -acute hypoxic respiratory failure -asthma exacerbation -morbid obesity -NSTEMI, probably type 2 -Leukocytosis, rule out sepsis given positive blood culture. Questionable contamination -deconditioning Course of hospitalization: No change in A/P on 12/25/24 Events: No events overnight. Improvement with physical therapy. Patient instructed that she needs to continue forcing herself to ambulate further. Out of bed for meals. Wean off oxygen. -Continue Hydroxyzine -bowel regimen -social service consultation, pending [facility] facility placement -Physical therapy: OOB as tolerated -PUD, DVT prophylaxis Total time spent with patient discussing and formulating plan of care: 35 minutes. This medical document was created using an electronic medical record system with [employer] dictation system. Although this document has been carefully reviewed, there may still be some phonetic and typographical errors. These areas are purely typographical due to imperfections of the software programs, and do not reflect any compromise in the patient's medical care. Plan discussed with: Patient, Other (RN) My Orders Orders - SHANICE DELEON NP Procedure Category Date Status Time Regular Diet DIET 12/25/24 Transmitted Breakfast Date of Service: Dec 25, 2024 Billing Provider: SHANICE DELEON NP Common Visit Codes: [id number] INP/OBS CARE(HIGH) SHANICE DELEON NP Dec 25, 2024 11:10
--- NOTE | 2024-12-25 14:30 | ECG ---
[facility] Test Date: 2024-12-24 Test Time: 11:06:35 Pat Name: KARELY CONNOLLY Department: Respiratoy Room: 0219 A Gender: F Consulting Psychologist: TERESA : 1975 Requested By: SHANICE DELEON Order Number: [id number] Reading MD: Varghese Roberts Measurements Intervals [place] Rate: 89 P: 44 ND: 153 QRS: 18 QRSD: 79 T: 33 QT: 325 QTc: 396 Interpretive Statements Sinus rhythm Low voltage, precordial leads Electronically Signed On 12-29-2024 21:37:07 PDT by Varghese Roberts Please click the below link to view image of tracing.
[2024-12-26] VITALS (17 sets, daily range): BP systolic 127–144; BP diastolic 69–90; PULSE 88–107; RESP 17–22; TEMP 97.2–98.5; O2SAT 89–100
--- NOTE | 2024-12-26 10:59 | DVHPN2 ---
Subjective better Reviewed: Care Plan, H&P, Labs, Medications, Previous Orders, Radiology Changes from previous H/P or p: No Changes General: Per HPI Respiratory: Shortness of breath Objective Vitals Vital Signs Date Time Temp Pulse Resp B/P (MAP) Pulse Ox O2 Delivery O2 Flow Rate FiO2 12/26/24 10:34 135/79 12/26/24 08:59 97.2 104 17 94 97.2 12/26/24 06:22 Nasal Cannula* 2 28 Intake/Output Intake and Output 12/26/24 07:00 Intake Total 825 ml Balance 825 ml Intake Oral 825 ml # Voids 11 # Bowel Movements 1 General Appearance: Alert, Oriented X3, Cooperative HEENT: Atraumatic Lungs: Clear to auscultation, Normal air movement Cardiovascular: Regular rate Abdomen: Normal bowel sounds, Soft, No tenderness Medications Current Medications Medications Dose Ordered Sig/Aren Route Start Time Stop Time Status Last Admin Dose Admin Ondansetron HCl 4 mg Q4HP PRN IV 12/02/24 10:15 12/22/24 22:10 4 MG Enoxaparin Sodium 40 mg DAILY SC 12/03/24 10:00 12/26/24 10:35 40 MG Acetaminophen 650 mg Q6HP PRN PO 12/02/24 10:15 12/19/24 21:23 650 MG Nitroglycerin 0.4 mg Q5MINP PRN SL 12/02/24 10:15 Albuterol 2.5 mg Q6HWA NEB 12/02/24 12:00 12/26/24 06:22 2.5 MG Ipratropium [place] 0.5 mg Q6HWA [facility] 12/02/24 12:00 12/26/24 06:22 0.5 MG Budesonide 0.5 mg BID NEB 12/04/24 22:00 12/26/24 06:22 0.5 MG Sodium Chloride 10 ml QSHIFT@10,22 IV 12/04/24 22:00 12/26/24 10:39 10 ML Hydralazine HCl 10 mg Q6HP PRN IV 12/08/24 09:30 12/12/24 11:52 10 MG Amlodipine Besylate 10 mg DAILY PO 12/13/24 10:00 12/26/24 10:34 10 MG Polyethylene Glycol 17 gm DAILY PO 12/19/24 13:15 12/23/24 09:50 17 GM Hydroxyzine Pamoate 25 mg Q6HP PRN PO 12/20/24 09:45 12/25/24 22:47 25 MG Bisacodyl 10 mg DAILYP PRN [place] 12/20/24 09:45 Lidocaine 1 patch DAILY TOP 12/23/24 11:00 12/26/24 10:35 1 PATCH Nitrofurantoin Macrocrystals 100 mg BID PO 12/26/24 22:00 Laboratory Results Laboratory Tests 12/16/24 13:40 Urinalysis Test 12/24/24 05:20 Urine Color Light-yellow (Yellow) Urine Clarity Turbid (Clear) H Urine pH 7.5 (5.0-9.0) Urine Specific [place] 1.017 (1.001-1.035) Urine Protein Trace (Negative) H Urine Ketones Negative (Negative) Urine Blood 3+ /uL (Negative) H Urine Nitrite Negative (Negative) Urine Bilirubin Negative (Negative) Urine Urobilinogen 2 mg/dL (Negative) H Urine Leukocyte Esterase 3+ /uL (Negative) Urine RBC 446 /hpf (0 - 4) Urine Microscopic WBC 165 /HPF (0-5) H Urine Squamous Epithelial Cells None seen /hpf (<5) Urine Triple Phosphate Crystals Few /hpf (None Seen) Urine Bacteria None seen /hpf (None Seen) Urine Mucus Few (None Seen) Urine Yeast with Hyphae Present /hpf Urine Yeast (Budding) Loaded /hpf (None Seen) Urine Glucose Normal mg/dL (Normal) Microbiology Microbiology Date/Time Source Procedure Growth Status 12/05/24 09:22 Catheter Tip Aerobic Culture - Final Morganella morganii Staphylococcus lugdunensis Complete 12/04/24 15:01 Blood Blood Culture - Final NO GROWTH AFTER 5 DAYS OF INCUBATION. Complete 12/03/24 11:49 Urine - [place] Urine Culture - Final Complete 12/02/24 06:25 Sputum Gram Stain - Final Complete 12/02/24 06:25 Sputum Respiratory Culture - Final Complete Assessment/Plan Assessment/Plan Status post acute hypoxemic respiratory failure Non-STEMI Morbid obesity Asthma UTI Plan: Macrobid for UTI. Awaiting transfer to nursing home facility Plan discussed with: Patient My Orders Orders - ANN STEVENS MD Procedure Category Date Status Time Urine Bacterial MICHAEL 12/26/24 Logged Culture 10:02 Nitrofurantoin PHA 12/26/24 In Process Capsule (Macrobid) 22:00 Date of Service: Dec 26, 2024 Billing Provider: ANN STEVENS MD Common Visit Codes: [id number] INP/OBS CARE(HIGH) ANN STEVENS MD Dec 26, 2024 10:59
[2024-12-27] VITALS (18 sets, daily range): BP systolic 105–150; BP diastolic 66–93; PULSE 89–109; RESP 16–20; TEMP 97.9–98.6; O2SAT 91–100
[2024-12-27] MEDS: ENOXAPARIN SOD 40 MG/0.4 ML SYRINGE SC ONE (12:37)
--- NOTE | 2024-12-27 15:20 | DVHPN2 ---
Subjective same Reviewed: Care Plan, H&P, Labs, Medications, Previous Orders, Radiology Changes from previous H/P or p: No Changes General: Per HPI Respiratory: Shortness of breath Objective Vitals Vital Signs Date Time Temp Pulse Resp B/P (MAP) Pulse Ox O2 Delivery O2 Flow Rate FiO2 12/27/24 13:00 98.6 95 20 125/68 (87) 95 98.6 12/27/24 11:10 Nasal Cannula* 2 28 Intake/Output Intake and Output 12/27/24 07:00 Intake Total 800 ml Balance 800 ml Intake Oral 800 ml # Voids 7 # Bowel Movements 1 General Appearance: Alert, Oriented X3, Cooperative HEENT: Atraumatic Lungs: Clear to auscultation, Normal air movement Cardiovascular: Regular rate Abdomen: Normal bowel sounds, Soft, No tenderness Medications Current Medications Medications Dose Ordered Sig/Aren Route Start Time Stop Time Status Last Admin Dose Admin Ondansetron HCl 4 mg Q4HP PRN IV 12/02/24 10:15 12/22/24 22:10 4 MG Acetaminophen 650 mg Q6HP PRN PO 12/02/24 10:15 12/19/24 21:23 650 MG Nitroglycerin 0.4 mg Q5MINP PRN SL 12/02/24 10:15 Albuterol 2.5 mg Q6HWA NEB 12/02/24 12:00 12/27/24 11:11 2.5 MG Ipratropium [place] 0.5 mg Q6HWA NEB 12/02/24 12:00 12/27/24 11:10 0.5 MG Budesonide 0.5 mg BID NEB 12/04/24 22:00 12/27/24 06:04 0.5 MG Sodium Chloride 10 ml QSHIFT@10,22 IV 12/04/24 22:00 12/27/24 10:28 10 ML Hydralazine HCl 10 mg Q6HP PRN IV 12/08/24 09:30 12/12/24 11:52 10 MG Amlodipine Besylate 10 mg DAILY PO 12/13/24 10:00 12/27/24 10:28 10 MG Polyethylene Glycol 17 gm DAILY PO 12/19/24 13:15 12/23/24 09:50 17 GM Bisacodyl 10 mg DAILYP PRN [place] 12/20/24 09:45 Lidocaine 1 patch DAILY TOP 12/23/24 11:00 12/27/24 10:28 1 PATCH Nitrofurantoin Macrocrystals 100 mg BID PO 12/26/24 22:00 12/27/24 10:28 100 MG Enoxaparin Sodium 40 mg DAILY SC 12/28/24 10:00 Laboratory Results Laboratory Tests 12/16/24 13:40 Urinalysis Test 12/24/24 05:20 Urine Color Light-yellow (Yellow) Urine Clarity Turbid (Clear) H Urine pH 7.5 (5.0-9.0) Urine Specific [place] 1.017 (1.001-1.035) Urine Protein Trace (Negative) H Urine Ketones Negative (Negative) Urine Blood 3+ /uL (Negative) H Urine Nitrite Negative (Negative) Urine Bilirubin Negative (Negative) Urine Urobilinogen 2 mg/dL (Negative) H Urine Leukocyte Esterase 3+ /uL (Negative) Urine RBC 446 /hpf (0 - 4) Urine Microscopic WBC 165 /HPF (0-5) H Urine Squamous Epithelial Cells None seen /hpf (<5) Urine Triple Phosphate Crystals Few /hpf (None Seen) Urine Bacteria None seen /hpf (None Seen) Urine Mucus Few (None Seen) Urine Yeast with Hyphae Present /hpf Urine Yeast (Budding) Loaded /hpf (None Seen) Urine Glucose Normal mg/dL (Normal) Microbiology Microbiology Date/Time Source Procedure Growth Status 12/05/24 09:22 Catheter Tip Aerobic Culture - Final Morganella morganii Staphylococcus lugdunensis Complete 12/04/24 15:01 Blood Blood Culture - Final NO GROWTH AFTER 5 DAYS OF INCUBATION. Complete 12/03/24 11:49 Urine - [place] Urine Culture - Final Complete 12/02/24 06:25 Sputum Gram Stain - Final Complete 12/02/24 06:25 Sputum Respiratory Culture - Final Complete Assessment/Plan Assessment/Plan Status post acute hypoxemic respiratory failure Non-STEMI Morbid obesity Asthma UTI Plan: Continue current plan of care. Awaiting transfer to alf facility Plan discussed with: Patient My Orders Orders - ANN STEVENS MD Procedure Category Date Status Time Enoxaparin Sodium PHA 12/28/24 In Process (Lovenox) 10:00 Date of Service: Dec 27, 2024 Billing Provider: ANN STEVENS MD Common Visit Codes: [id number] INP/OBS CARE(HIGH) ANN STEVENS MD Dec 27, 2024 15:20
[2024-12-27] MEDS: ALBUTEROL SULF 2.5 MG/0.5ML(0.5%) NEB SOLN NEB PRN (16:34)
[2024-12-27] MEDS: hydrOXYzine 25 MG TAB or CAP PO PRN (16:45)
[2024-12-28] VITALS (16 sets, daily range): BP systolic 128–153; BP diastolic 79–88; PULSE 90–114; RESP 12–20; TEMP 97.8–98.5; O2SAT 94–100
[2024-12-28] MEDS: IPRATROPIUM BROM 0.5 MG/2.5ML INH SOL NEB SCH (06:28)
[2024-12-28] MEDS: ALBUTEROL SULF 2.5 MG/0.5ML(0.5%) NEB SOLN NEB SCH (06:28)
[2024-12-28] MEDS: ENOXAPARIN SOD 40 MG/0.4 ML SYRINGE SC SCH (09:26)
--- NOTE | 2024-12-28 09:42 | DVHPN2 ---
Subjective Patient reports constipation, back ache. Reviewed: Care Plan, H&P, Labs, Medications, Previous Orders, Radiology Changes from previous H/P or p: No Changes General: Per HPI Respiratory: Shortness of breath Objective Vitals Vital Signs Date Time Temp Pulse Resp B/P (MAP) Pulse Ox O2 Delivery O2 Flow Rate FiO2 12/28/24 09:27 153/87 12/28/24 06:41 95 14 97 12/28/24 06:31 Nasal Cannula 1.0 12/28/24 06:31 24 12/28/24 05:00 98.3 98.3 Intake/Output Intake and Output 12/28/24 07:00 Intake Total 2000 ml Balance 2000 ml Intake Oral 2000 ml # Voids 7 # Bowel Movements 5 General Appearance: Alert, Oriented X3, Cooperative HEENT: Atraumatic Lungs: Clear to auscultation, Normal air movement Cardiovascular: Regular rate Abdomen: Normal bowel sounds, Soft, No tenderness Skin: Dry, Intact Psych/Mental Status: Mental status NL, Mood NL Medications Current Medications Medications Dose Ordered Sig/Aren Route Start Time Stop Time Status Last Admin Dose Admin Ondansetron HCl 4 mg Q4HP PRN IV 12/02/24 10:15 12/22/24 22:10 4 MG Acetaminophen 650 mg Q6HP PRN PO 12/02/24 10:15 12/19/24 21:23 650 MG Nitroglycerin 0.4 mg Q5MINP PRN SL 12/02/24 10:15 Budesonide 0.5 mg BID NEB 12/04/24 22:00 12/28/24 06:28 0.5 MG Sodium Chloride 10 ml QSHIFT@10,22 IV 12/04/24 22:00 12/28/24 09:25 10 ML Hydralazine HCl 10 mg Q6HP PRN IV 12/08/24 09:30 12/12/24 11:52 10 MG Amlodipine Besylate 10 mg DAILY PO 12/13/24 10:00 12/28/24 09:27 10 MG Polyethylene Glycol 17 gm DAILY PO 12/19/24 13:15 12/23/24 09:50 17 GM Bisacodyl 10 mg DAILYP PRN [place] 12/20/24 09:45 Lidocaine 1 patch DAILY TOP 12/23/24 11:00 12/28/24 09:26 1 PATCH Nitrofurantoin Macrocrystals 100 mg BID PO 12/26/24 22:00 12/28/24 09:26 100 MG Enoxaparin Sodium 40 mg DAILY SC 12/28/24 10:00 12/28/24 09:26 40 MG Hydroxyzine Pamoate 25 mg Q6HP PRN PO 12/27/24 16:30 12/27/24 22:43 25 MG Albuterol 2.5 mg Q4HR NEB 12/28/24 06:00 12/28/24 06:28 2.5 MG Ipratropium [place] 0.5 mg Q4HR NEB 12/28/24 06:00 12/28/24 06:28 0.5 MG Laboratory Results Laboratory Tests 12/16/24 13:40 Urinalysis Test 12/24/24 05:20 Urine Color Light-yellow (Yellow) Urine Clarity Turbid (Clear) H Urine pH 7.5 (5.0-9.0) Urine Specific [place] 1.017 (1.001-1.035) Urine Protein Trace (Negative) H Urine Ketones Negative (Negative) Urine Blood 3+ /uL (Negative) H Urine Nitrite Negative (Negative) Urine Bilirubin Negative (Negative) Urine Urobilinogen 2 mg/dL (Negative) H Urine Leukocyte Esterase 3+ /uL (Negative) Urine RBC 446 /hpf (0 - 4) Urine Microscopic WBC 165 /HPF (0-5) H Urine Squamous Epithelial Cells None seen /hpf (<5) Urine Triple Phosphate Crystals Few /hpf (None Seen) Urine Bacteria None seen /hpf (None Seen) Urine Mucus Few (None Seen) Urine Yeast with Hyphae Present /hpf Urine Yeast (Budding) Loaded /hpf (None Seen) Urine Glucose Normal mg/dL (Normal) Microbiology Microbiology Date/Time Source Procedure Growth Status 12/05/24 09:22 Catheter Tip Aerobic Culture - Final Morganella morganii Staphylococcus lugdunensis Complete 12/04/24 15:01 Blood Blood Culture - Final NO GROWTH AFTER 5 DAYS OF INCUBATION. Complete 12/03/24 11:49 Urine - [place] Urine Culture - Final Complete 12/02/24 06:25 Sputum Gram Stain - Final Complete 12/02/24 06:25 Sputum Respiratory Culture - Final Complete Labs and/or images reviewed: Labs reviewed by me, Image(s) reviewed by me Assessment/Plan Assessment/Plan Impression: -acute hypoxic respiratory failure -asthma exacerbation -morbid obesity -NSTEMI, probably type 2 -Leukocytosis, rule out sepsis given positive blood culture. Questionable contamination -deconditioning Course of hospitalization: No change in A/P on 12/28/24. Awaiting placement at SNF Events: No events overnight. Improvement with physical therapy. Patient instructed that she needs to continue forcing herself to ambulate further. Out of bed for meals. Wean off oxygen. -Continue Hydroxyzine -bowel regimen -social service consultation, pending [facility] facility placement -Physical therapy: OOB as tolerated -PUD, DVT prophylaxis Total time spent with patient discussing and formulating plan of care: 35 minutes. This medical document was created using an electronic medical record system with [employer] dictation system. Although this document has been carefully reviewed, there may still be some phonetic and typographical errors. These areas are purely typographical due to imperfections of the software programs, and do not reflect any compromise in the patient's medical care. Plan discussed with: Patient, Other (RN) Date of Service: Dec 28, 2024 Billing Provider: SHANICE DELEON NP Common Visit Codes: [id number] INP/OBS CARE(MOD) SHANCIE DELEON NP Dec 28, 2024 09:42
== END 2024-12-28 18:45 | DRG 870 ==
LOC: EDBD 06:16 → ER 06:16 → OVERFLOW 10:06 → ICU CENTRL 12:36 → TELE-WESTW 12-12 17:56 → CENTRAL 12-16 09:31 → TELE-CENTR 12-23 12:14 → CENTRAL 12-24 18:44
PROVIDERS: ADMIT Nurse Practitioner Acute Care; ATTEND Nurse Practitioner Acute Care
PROC: 5A1955Z Respiratory Ventilation, Greater than 96 Consecutive Hours (ICD-10-PCS; principal; 2024-12-02)
PROC: 0BH17EZ Insertion of Endotracheal Airway into Trachea, Via Natural or Artificial Opening (ICD-10-PCS; 2024-12-02)
PROC: 06HY33Z Insertion of Infusion Device into Lower Vein, Percutaneous Approach (ICD-10-PCS; 2024-12-02)
PROC: 02HV33Z Insertion of Infusion Device into Superior Vena Cava, Percutaneous Approach (ICD-10-PCS; 2024-12-04)
PROC: B548ZZA Ultrasonography of Superior Vena Cava, Guidance (ICD-10-PCS; 2024-12-04)
PROC: 5A09357 Assistance with Respiratory Ventilation, Less than 24 Consecutive Hours, Continuous Positive Airway Pressure (ICD-10-PCS; 2024-12-11)
DX: A41.9 Sepsis, unspecified organism (principal); J96.01 Acute respiratory failure with hypoxia; I21.A1 Myocardial infarction type 2; E87.20 Acidosis, unspecified; J45.901 Unspecified asthma with (acute) exacerbation; Z68.42 Body mass index [BMI] 45.0-49.9, adult; T78.2XXA Anaphylactic shock, unspecified, initial encounter; N39.0 Urinary tract infection, site not specified; Z20.822 Contact with and (suspected) exposure to COVID-19; E66.01 Morbid (severe) obesity due to excess calories; R73.9 Hyperglycemia, unspecified; F41.9 Anxiety disorder, unspecified; Z99.81 Dependence on supplemental oxygen
CPT/HCPCS: 31500; 36415; 36556; 36569; 36600; 70551; 71045; 71275; 74018; 76937; 80048; 80053; 80202; 80307; 81001; 82805; 82962; 83605; 83735; 83880; 84484; 84702; 85007; 85025; 85027; 85379; 85610; 85652; 85730; 86141; 86160; 87040; 87070; 87077; 87081; 87086; 87186; 87205; 87426; 87804; 92610; 93005; 93306; 94003; 94640; 94644; 94660; 97110; 97116; 97163; 97530; 99291; 99292; G0378; J1956; J2405; J2470; J2704; J7060

== ENCOUNTER 2025-03-10 03:37 | Inpatient (IN) | payer BC, SELFPAY ==
[2025-03-10] VITALS (12 sets, daily range): BP systolic 129; BP diastolic 83; PULSE 95–160; RESP 15–36; TEMP 98.3; O2SAT 95–100
[~2025-03-10] VITALS: Ht 167.6 cm; Wt 126.0 kg
--- NOTE | 2025-03-10 03:49 | ED.PDOC ---
SOB-HPI HPI Comments Past medical history: asthma, autoimmune disorder Past surgical history: denies : Discharge Summary Date of Admission Dec 02, 2024 at 10:06 Date of Discharge: Dec 18, 2024 Admitting Diagnosis Acute hypoxic respiratory failure Final Diagnosis/Problems List Acute hypoxic respiratory failure Secondary diagnosis: -asthma exacerbation -morbid obesity -NSTEMI, probably type 2 -Leukocytosis, rule out sepsis given positive blood culture. Questionable contamination -deconditioning HPI: Poor Historian. REVIEW OF SYSTEMS: CONSTITUTIONAL: Denies acute: fever, diaphoresis, chills, HEAD: Denies acute: headache, photophobia Eyes: Denies acute: Double vision, vision loss, eye pain, eye discharge. EARS: Denies acute: tinnitus, hearing loss, ear discharge, ear pain, THROAT: Denies acute: sore throat, swelling, difficulty swallowing , pain with swallowing, change in voice. NECK: Denies acute: neck pain, neck swelling, stiff neck. HEART: Denies acute : chest pain, palpitations, LUNGS: Denies acute: cough, hemoptysis ABDOMEN: Denies acute: abdominal pain, Nausea, Vomiting, diarrhea, melena , hematemesis, hematochezia SKIN: Denies acute: rash, redness, lesions, itchiness. EXTREMITIES: Denies acute: calf pain, numbness, tingling, weakness, denies pain in extremity. Denies acute: Low back pain. Neuro: Denies acute: focal neurological deficit, motor or sensory focal neurological deficit, tremors, seizure like activity, confusion, dizziness, change in mental status, loss of bowel or bladder function, cauda equina like symptoms. : Denies acute: dysuria, hematuria, flank pain, increase in urinary frequency. PSYCH: Denies acute: hallucination, suicidal ideation, homicidal ideation. FEMALE: Denies acute: abnormal vaginal bleeding, foul odor, unusual discharge. PHYSICAL EXAM: General: ---moderate -----acute distress, awake and alert. Head: normocephalic, atraumatic. No raccoon's eyes, no calvin sign. Neck: supple, trachea is midline, no swelling. Throat: Normal phonation. Eyes:, no erythema, no purulent discharge, no proptosis, no icterus. Heart: regular tachycardic, no significant murmur appreciated. Lungs: Moderate apparent respiratory distress, Bilateral wheezing, no rhonchi, no crackles. No stridors Abdomen: non tender to palpation, non distended, soft, no guarding, no rebound, + bowel sounds. Morbidly obese Neuro: Awake, Alert, oriented to name, self, situation, follows commands GCS=15. Speech is normal. Skin: no petechia, no purpura, no cyanosis, non-pale, not jaundice. Lower extremities: --no - Pitting edema no deformity, no focal swelling, no calf TTP. Makes eye contact. moves all four extremities. ED COURSE: DISCLAIMER: This medical document was created using an electronic medical record system with voice recognition software and computerized dictation system. Although this document has been carefully reviewed, there might still be some phonetic and typographical errors. Occasional wrong-word or "sound-alike" substitutions may have occurred due to the inherent limitations of voice recognition software. These areas are purely typographical due to imperfections of the software programs and do not reflect any compromise in the patient's medical care. Please read the chart carefully and recognize, using context, where these substitutions have occurred. Time Seen by MD: 03:40 Reviewed notes: Allergies Information Source: Patient, Emergency Med Personnel Past Medical History PAST MEDICAL HISTORY: Denies Surgical History: Denies all surgeries TRANSPORT ANALYST History: No Pertinent TRANSPORT ANALYST History Family History Family History: Reviewed,noncontributory to illness Social History Smoker: Non-Smoker Alcohol: Denies ETOH Use Drugs: Denies Drug Use Lives In: Home Was a procedure done? Was a procedure done?: No Differential Dx Differential Diagnosis: Other (DDx include ACS, unstable angina, anxiety, PE, pneumothroax, neoplasm, cardiac ischemia, COPD, asthma, CHF, pleural effusion, tobacco abuse, pneumonia, hypoxia, hypercapnia, anemia., infection/sepsis., pulmonary edema. Asthma, Cardiac tamponade, infection.) X-Ray, Labs, Meds, VS Vital Signs Date Time Temp Pulse Resp B/P (MAP) Pulse Ox O2 Delivery O2 Flow Rate FiO2 03/10/25 05:17 131 03/10/25 05:01 138 20 168/78 (108) 93 03/10/25 04:48 141 23 156/85 (108) 93 03/10/25 04:46 143 23 131/72 (91) 86 03/10/25 04:39 148 23 182/158 (166) 96 03/10/25 04:38 98.3 160 28 129/83 100 100 98.3 03/10/25 04:17 157 21 165/123 (137) 98 03/10/25 04:13 160 03/10/25 04:05 114 36 96 Bi-Pap+ 50 50 03/10/25 04:03 28 99 Bi-Pap+ 100 100 03/10/25 04:03 150 Facial BiPAP Mask 100 03/10/25 04:00 154 03/10/25 03:45 98.7 144 23 212/113 (146) 99 98.7 03/10/25 03:37 98.3 150 36 129/83 80 98.3 Lab Test 03/10/25 05:01 03/10/25 04:20 03/10/25 03:48 Range/Units Troponin I High Sensitivity 11 < 3 L </=34 ng/L Blood Gas Specimen Type Arterial Blood Gas Sample Site Left radial Blood Gas Patient Temperature 37.0 Arterial Blood Date Drawn Arterial Blood pH 7.240 *L 7.350-7.450 Arterial Blood Partial Pressure CO2 51.7 H 32.0-45.0 mmHg Arterial Blood Partial Pressure O2 541.5 *H 83.0-108.0 mmHg Arterial Blood HCO3 21.7 21.0-28.0 mmol/L Arterial Blood Oxygen Saturation 99.8 H 94.0-98.0 % Arterial Blood Base Excess -6.3 L -2.0-3.0 mmol/L Arterial Blood Oxyhemoglobin 98.8 H 94.0-98.0 % Arterial Blood Carboxyhemoglobin 0.4 L 0.5-1.5 % Arterial Blood Methemoglobin 0.6 0.0-1.5 % Arterial Blood Deoxyhemoglobin 0.2 0.0-5.0 % Ranjith Test Yes Blood Gas Total Hemoglobin 16.70 H 12.0-16.0 g/dL Blood Gas Modality Mask - bipap Blood Gas Spontaneous Rate 25 FiO2 % 100.0 Blood Gas Spontaneous Tidal Volume 888 Blood Gas EPAP 5 Blood Gas IPAP 12 Blood Gas Critical Value Read Back yes Blood Gas Notified Whom md blanca couch Blood Gas Notified Time [id number] Blood Gas Notified By change management coordinator devin lopez White Blood Count 16.4 H 4.4-10.8 10^3/uL Red Blood Count 5.06 4.0-5.20 10^6/uL Hemoglobin 15.9 12.2-16.2 g/dL Hematocrit 47.5 H 36.0-46.0 % Mean Corpuscular Volume 93.9 80.0-100.0 fL Mean Corpuscular Hemoglobin 31.4 28.0-32.0 pg Mean Corpuscular Hemoglobin Concent 33.4 32.0-36.0 g/dL Red Cell Distribution Width 14.4 H 11.8-14.3 % Platelet Count 302 140-450 10^3/uL Mean Platelet Volume 8.5 6.9-10.8 fL Neutrophils (%) (Auto) 38.7 37.0-80.0 % Lymphocytes (%) (Auto) 40.7 10.0-50.0 % Monocytes (%) (Auto) 8.7 0.0-12.0 % Eosinophils (%) (Auto) 11.3 H 0.0-7.0 % Basophils (%) (Auto) 0.6 0.0-2.0 % Neutrophils # (Auto) 6.4 1.6-8.6 10 ^3/uL Lymphocytes # (Auto) 6.7 H 0.4-5.4 10 ^3/uL Monocytes # (Auto) 1.4 H 0-1.3 10 ^3/uL Eosinophils # (Auto) 1.9 H 0-0.8 10 ^3/uL Basophils # (Auto) 0.1 0-0.2 10 ^3/uL Nucleated Red Blood Cells 0.2 % Sodium Level 141 136-145 mmol/L Potassium Level 4.6 3.5-5.1 mmol/L Chloride Level 107 98-107 mmol/L Carbon Dioxide Level 23 20-31 mmol/L Anion Gap 11 5-15 Blood Urea Nitrogen 14 9-23 mg/dL Creatinine 1.22 H 0.550-1.02 mg/dL Glomerular Filtration Rate Calc 54 >90 mL/min BUN/Creatinine Ratio 11.5 10.0-20.0 Serum Glucose 132 H 74-106 mg/dL Calcium Level 9.7 8.7-10.4 mg/dL Total Bilirubin 0.8 0.2-1.0 mg/dL Aspartate Amino Transferase (AST) 46 H 13-40 U/L Alanine Aminotransferase (ALT) 85 H 7-40 U/L Alkaline Phosphatase 75 46-116 U/L B-Type Natriuretic Peptide 15.17 0-100 pg/mL Total Protein 7.0 5.7-8.2 g/dL Albumin 4.6 3.2-4.8 g/dL Current Medications Medications (Trade) Dose Ordered Sig/Aren Route Start Time Stop Time Status Last Admin Magnesium Sulfate/ Dextrose 100 ml @ 100 mls/hr ONCE ONCE IV 03/10/25 03:45 03/10/25 04:44 DC 03/10/25 04:03 Methylprednisolone Sodium Succinate (Solu Medrol) 250 mg ONCE ONCE IV 03/10/25 03:45 03/10/25 03:46 DC 03/10/25 03:54 Sodium Chloride 1,000 ml @ 1,000 mls/hr Q1H ONCE IV 03/10/25 03:45 03/10/25 04:44 DC 03/10/25 04:25 Diphenhydramine HCl (Benadryl Injection) 25 mg ONCE ONCE IV 03/10/25 03:45 03/10/25 03:46 DC 03/10/25 03:54 Dexamethasone Sodium Phosphate (Decadron Injection) 10 mg ONCE ONCE IV 03/10/25 03:45 03/10/25 03:46 DC 03/10/25 03:55 Albuterol (Ventolin Medneb) 20 mg ONCE ONCE NEB 03/10/25 03:45 03/10/25 03:46 DC 03/10/25 04:11 Ipratropium [place] (Atrovent Medneb) 1 mg ONCE ONCE NEB 03/10/25 03:45 03/10/25 03:46 DC 03/10/25 04:12 Lorazepam (Ativan Inj) 1 mg ONCE ONCE IV 03/10/25 04:30 03/10/25 04:31 DC 03/10/25 04:[address] [address] Ph: [phone] DIAGNOSTIC IMAGING Diagnostic Imaging Report : [id number] Signed PATIENT: KARELY CONNOLLY ACCT: [id number] UNIT: [id number] : 1975 LOC: ER ROOM / BED: / AGE / SEX: 49 / F ADM STATUS: REG ER SERVICE 0344 ORDERING PHYSICIAN: ROBERT COUCH DO PROCEDURE(s): CXRP - CHEST PORTABLE REASON: sob ORDER NUMBER(s): [id number], ACCESSION NUMBER(s): [id number] CHEST RADIOGRAPH INDICATION: sob TECHNIQUE: Single frontal view of the chest was obtained COMPARISON: Chest radiograph dated 12/14/2024. FINDINGS: Lines and Tubes: None Lungs: No focal consolidation. Pleura: No effusion. No pneumothorax. Cardiomediastinal contours: Unremarkable Bones: No acute osseous abnormality. IMPRESSION: 1. No acute cardiopulmonary disease. ATED BY: TERRY SANDY MD DICTATED DATE/TIME: 03/10/25418 SIGNED BY: TERRY SANDY MD SIGNED DATE/TIME: 03/10/25418 CC: Time of 1ST Reevaluation: 03:40 Reevaluation 1ST: Unchanged Time of 2ND Reevaluation: 06:29 Reevaluation 2ND: Improved Patient Education/Counseling: Diagnosis, Treatment Family Education/Counseling: No Family Present Comments MDM: patient presented with the above HPI.--acute respiratory distress----workup was initiated. patient was found with the above mentioned diagnosis. the following medications were ordered: please refer to order lists of meds and tests obtained by myself Dr. Couch. Patient ED course and VS have been stabilized. Patient has been reassessed in the ED and remained in a stable condition. Pertinent incidental findings were discussed with the patient and/or family. Patient/family voices understanding and is agreeable with plan. Patient has been observed in the ED adequate length of time to insure improvement/stability. Escalation of care considered: Consideration of escalation to observation or admission Patient was placed on a BiPAP immediately. Patient was given multiple medications and reassessed. Patient showed improvement in her heart rate and vital signs and respiratory status. ABG was obtained which was stable. Patient requested water to drink which we allowed her. Patient was ADMITTED to the medicine team for further evaluation and treatment of their presentation. All the reports of any imaging studies that were ordered by myself were reviewed by myself. SEPSIS Sepsis Screen Physician Orders Authorization Representative (03/10/25 ) Chest Portable (03/10/25 03:44) Electrocardigram (03/10/25 03:44) Troponin-I Hs (03/10/25 06:44) BIPAP (03/10/25 03:43) Abg W/ Co-Ox (03/10/25 04:00) Abg W/ Co-Ox (03/10/25 04:17) Vital Signs Date Time Temp Pulse Resp B/P (MAP) Pulse Ox O2 Delivery O2 Flow Rate FiO2 03/10/25 05:17 131 03/10/25 05:01 138 20 168/78 (108) 93 03/10/25 04:48 141 23 156/85 (108) 93 03/10/25 04:46 143 23 131/72 (91) 86 03/10/25 04:39 148 23 182/158 (166) 96 03/10/25 04:38 98.3 160 28 129/83 100 100 98.3 03/10/25 04:17 157 21 165/123 (137) 98 03/10/25 04:13 160 03/10/25 04:05 114 36 96 Bi-Pap+ 50 50 03/10/25 04:03 28 99 Bi-Pap+ 100 100 03/10/25 04:03 150 Facial BiPAP Mask 100 03/10/25 04:00 154 03/10/25 03:45 98.7 144 23 212/113 (146) 99 98.7 03/10/25 03:37 98.3 150 36 129/83 80 98.3 Laboratory Tests Test 03/10/25 03:48 White Blood Count 16.4 10^3/uL (4.4-10.8) H Medications Medications Dose Ordered Sig/Aren Route Start Time Stop Time Status Last Admin Dose Admin Albuterol 20 mg ONCE ONCE NEB 03/10/25 03:45 03/10/25 03:46 DC 03/10/25 04:11 Dexamethasone Sodium Phosphate 10 mg ONCE ONCE IV 03/10/25 03:45 03/10/25 03:46 DC 03/10/25 03:55 Diphenhydramine HCl 25 mg ONCE ONCE IV 03/10/25 03:45 03/10/25 03:46 DC 03/10/25 03:54 Ipratropium [place] 1 mg ONCE ONCE NEB 03/10/25 03:45 03/10/25 03:46 DC 03/10/25 04:12 Lorazepam 1 mg ONCE ONCE IV 03/10/25 04:30 03/10/25 04:31 DC 03/10/25 04:27 Magnesium Sulfate/ Dextrose 100 ml @ 100 mls/hr ONCE ONCE IV 03/10/25 03:45 03/10/25 04:44 DC 03/10/25 04:03 Methylprednisolone Sodium Succinate 250 mg ONCE ONCE IV 03/10/25 03:45 03/10/25 03:46 DC 03/10/25 03:54 Sodium Chloride 1,000 ml @ 1,000 mls/hr Q1H ONCE IV 03/10/25 03:45 03/10/25 04:44 DC 03/10/25 04:25 Departure 1 Departure Time of Disposition: 03:52 Impression: Primary Impression: Acute hypoxic respiratory failure Disposition: ADMITTED INPATIENT Admit to: Tele Condition: Guarded e-Prescriptions No Active Prescriptions or Reported Meds Discharged With: Self Critical Care Note Critical Care Time?: Yes (55 min-critical care time only) Critical care comment: Due to a high probability of clinically significant, life threatening deterioration, the patient required my highest level of preparedness to intervene emergently and I personally spent this critical care time directly and personally managing the patient. This critical care time included obtaining a history; examining the patient; pulse oximetry; ordering and review of studies; arranging urgent treatment with development of a management plan; evaluation of patient's response to treatment; frequent reassessment; and, discussions with other providers. This critical care time was performed to assess and manage the high probability of imminent, life-threatening deterioration that could result in multi-organ failure. It was exclusive of separately billable procedures and treating other patients and teaching time. Please see my other sections and the rest of the note for further information on patient assessment and treatment. Heart Score Heart Score: Heart Score Response (Comments) Value History Slightly Suspicious [address]-Deviation 2 Age 45-64 1 Risk Factors 1 or 2 risk factors 1 Troponin Normal limit 0 Total 4 I personally scribed for ROBERT COUCH DO ([email or web address]) on 03/10/25 at 03:49. Electronically submitted by Dominic Domínguez ([email or web address]). I personally scribed for ROBERT COUCH DO ([email or web address]) on 03/10/25 at 04:41. Electronically submitted by Dominic Domínguez ([email or web address]). I personally scribed for ROBERT COUCH DO ([email or web address]) on 03/10/25 at 05:07. Electronically submitted by Dominic Domínguez ([email or web address]). I personally scribed for ROBERT COUCH DO ([email or web address]) on 03/10/25 at 05:33. Electronically submitted by Dominic Domínguez ([email or web address]). ROBERT COUCH DO Mar 10, 2025 03:49
[2025-03-10] MEDS: diphenhydrAMINE HCL 50 MG/1 ML VL IV ONE (03:54)
[2025-03-10] MEDS: methylPREDNISolone SOD SUCC 125 MG/2 ML VL IV ONE (03:54)
[2025-03-10] MEDS: MAGNESIUM SULFATE 1GM/100ML 100 ML IV ONE (04:03)
[2025-03-10] MEDS: ALBUTEROL SULF 2.5 MG/0.5ML(0.5%) NEB SOLN NEB ONE ×2 (04:11→04:12)
[2025-03-10] MEDS: IPRATROPIUM BROM 0.5 MG/2.5ML INH SOL NEB ONE ×2 (04:12)
--- NOTE | 2025-03-10 04:21 | DVH ---
CHEST RADIOGRAPH INDICATION: sob TECHNIQUE: Single frontal view of the chest was obtained COMPARISON: Chest radiograph dated 12/14/2024. FINDINGS: Lines and Tubes: None Lungs: No focal consolidation. Pleura: No effusion. No pneumothorax. Cardiomediastinal contours: Unremarkable Bones: No acute osseous abnormality. IMPRESSION: 1. No acute cardiopulmonary disease.
[2025-03-10 04:24] LABS: Hematocrit 47.5 % (36.0-46.0); Hemoglobin 15.9 g/dL (12.2-16.2); Mean Corpuscular Hemoglobin 31.4 pg (28.0-32.0); Mean Corpuscular Volume 93.9 fL (80.0-100.0); Nucleated Red Blood Cells % 0.2 %
[2025-03-10] MEDS: SODIUM CHLORIDE 0.9% 1,000 ML IV ONE (04:25)
[2025-03-10] MEDS: LORazepam 2MG/ML-1ML VIAL IV ONE (04:27)
[2025-03-10] MEDS ORDERED: NITROGLYCERIN 50MG/250ML 250 ML IV ONE (04:30)
[2025-03-10 04:34] LABS: Base Excess -6.3 mmol/L (-2.0-3.0)
[2025-03-10 04:40] LABS: Albumin 4.6 g/dL (3.2-4.8); Alkaline Phosphatase 75 U/L (46-116); Anion Gap 11 (5-15); BUN/Creatinine Ratio 11.5 (10.0-20.0); Bilirubin, Total 0.8 mg/dL (0.2-1.0); Blood Urea Nitrogen 14 mg/dL (9-23); Calcium 9.7 mg/dL (8.7-10.4); Carbon Dioxide 23 mmol/L (20-31); Chloride 107 mmol/L (98-107); Potassium 4.6 mmol/L (3.5-5.1); Sodium 141 mmol/L (136-145); Total Protein 7.0 g/dL (5.7-8.2)
[2025-03-10 04:44] LABS: Alanine Aminotransferase 85 U/L (7-40); Glucose 132 mg/dL (74-106)
[2025-03-10 07:07] LABS: Base Excess -6.5 mmol/L (-2.0-3.0)
--- NOTE | 2025-03-10 07:09 | ECG ---
[facility] Test Date: 2025-03-10 Test Time: 04:12:09 Pat Name: KARELY CONNOLLY Department: ED Room: 0214T Gender: F Computer Lab Aide: ZIA : 1975 Requested By: ROBERT COUCH Order Number: [id number] Reading MD: Varghese Roberts Measurements Intervals [place] Rate: 157 P: 92 NE: 152 QRS: 74 QRSD: 99 T: 5 QT: 332 QTc: 537 Interpretive Statements Sinus tachycardia Multiform ventricular premature complexes Low voltage, precordial leads Probable anteroseptal infarct, old ST depr, consider ischemia, inferior leads Prolonged QT interval Artifact in lead(s) I,II,III,aVR,aVL,aVF,V5,V6 and baseline wander in lead(s) V4 Electronically Signed On 03-11-2025 20:08:40 PST by Varghese Roberts Please click the below link to view image of tracing.
[2025-03-10] MEDS ORDERED: AMLO1TAB23 PO (08:26)
[2025-03-10] MEDS ORDERED: PRED10TA PO (08:26)
[2025-03-10] MEDS ORDERED: HYDR50TA32 PO (08:26)
[2025-03-10] MEDS ORDERED: ACETAMINOPHEN 325 MG TAB PO PRN (08:30)
[2025-03-10] MEDS ORDERED: NITROGLYCERIN 0.4 MG SL TAB SL PRN (08:30)
[2025-03-10] MEDS ORDERED: HYDROcodone-ACET 5/325MG TAB PO PRN (08:30)
[2025-03-10] MEDS ORDERED: DOCUSATE SOD 100 MG CAP PO PRN (08:30)
--- NOTE | 2025-03-10 08:51 | DVHHP2 ---
History of Present Illness Reason for Visit: Shortness of breath History of Present Illness Laure Glover is a 49-year-old female with past medical history of asthma, and mast cell activation syndrome, who came to the hospital for shortness of breath. Patient was admitted here in November 2024 for similar complaints. She was int ubated and in ICU for over a week during that admission. She states since going home her MCAS has worsened and she has more triggers. This morning she was triggered by a smell, she felt the asthma attack/MCAS coming on. She used her EPI pen, but it was not enough so EMS was called. When EMS arrived her oxygenation was 80% on RA. She was given a breathing treatment, placed on BiPAP and brought to the hospital. Pulmonary: Asthma Rheumatologic: Other (mast cell activation syndrome) Past Surgical History: None Smoke: No ALCOHOL: none Drugs: None Lives: with Family Domestic Violence: Neg Review of Systems Constitutional: No: Fever, Chills, Sweats, Weakness, Malaise, Other Eyes: No: Pain, Vision change, Conjunctivae inflammation, Eyelid inflammation, Other, Redness ENT: No: Ear pain, Ear discharge, Nose pain, Nose discharge, Nose congestion, Mouth pain, Mouth swelling, Throat pain, Throat swelling, Other Respiratory: Shortness of breath; No: Cough, Dry, SOB with excertion, Wheezing, Hemoptysis, Pleuritic Pain, Sputum, Wheezing, Other Cardiovascular: No: Chest Pain, Palpitations, Orthopnea, Paroxysmal Noc. Dyspnea, Edema, Lt Headedness, Other Gastrointestinal: No: Nausea, Vomiting, Abdominal Pain, Diarrhea, Constipation, Melena, Hematochezia, Other Genitourinary: No Dysuria, No Frequency, No Incontinence, No Hematuria, No Retention, No Other Musculoskeletal: No: other, neck pain, shoulder pain, arm pain, back pain, hand pain, leg pain, foot pain Skin: No: Rash, Lesions, Jaundice, Bruising, Other Neurological: No: Weakness, Numbness, Incoordination, Change in speech, Confusion, Seizures, Other Allergies: Coded Allergies: Gluten Meal (Verified Allergy, Severe, 12/16/24) Lactose Intolerance (GI) (Verified Allergy, Severe, nausea, 12/16/24) Propofol (Verified Allergy, Unknown, 03/10/25) Medications Current Medications Medications Dose Ordered Sig/Aren Route Start Time Stop Time Status Last Admin Dose Admin Sodium Chloride 10 ml Q8HR IV 03/10/25 14:00 UNV Acetaminophen/ Hydrocodone Bitart 1 tab Q4HP PRN PO 03/10/25 08:30 UNV Ondansetron HCl 4 mg Q4HP PRN IV 03/10/25 08:30 UNV Docusate Sodium 100 mg BIDPRN PRN PO 03/10/25 08:30 UNV Enoxaparin Sodium 40 mg DAILY SC 03/10/25 10:00 UNV Acetaminophen 650 mg Q6HP PRN PO 03/10/25 08:30 UNV Nitroglycerin 0.4 mg Q5MINP PRN SL 03/10/25 08:30 UNV Morphine Sulfate 2 mg Q30M PRN IV 03/10/25 08:30 UNV Albuterol 2.5 mg Q4HWA NEB 03/10/25 10:00 UNV Ipratropium [place] 0.5 mg Q4HWA NEB 03/10/25 10:00 UNV Exam Vital Signs Vital Signs Date Time Temp Pulse Resp B/P (MAP) Pulse Ox O2 Delivery O2 Flow Rate FiO2 03/10/25 07:30 98.2 108 18 122/62 (82) 96 98.2 03/10/25 07:30 Bi-Pap+ 50 50 General Appearance: Alert, Oriented X3, Cooperative, moderate distress HEENT: Atraumatic, PERRLA Respiratory: Other (Wheezing) Cardiovascular: Normal S1, Normal S2, Other (ST) Abdominal: Normal bowel sounds, Soft, No tenderness, No hepatospenomegaly Extremities: No clubbing, No cyanosis, No edema, Normal pulses, No tende rness/swelling Skin: No rashes, No breakdown, No significant lesion Neuro: Normal gait, Normal speech, Strength at 5/5 X4 ext, Normal tone Psych/Mental Status: Mental status NL, Mood NL Labs/Xrays Labs Test 03/10/25 07:00 03/10/25 06:42 03/10/25 04:20 03/10/25 03:48 Range/Units Blood Gas Specimen Type Arterial Blood Gas Sample Site Left radial Blood Gas Patient Temperature 37.0 Arterial Blood Date Drawn [id number] Arterial Blood pH 7.346 L 7.350-7.450 Arterial Blood Partial Pressure CO2 33.8 32.0-45.0 mmHg Arterial Blood Partial Pressure O2 214.2 H 83.0-108.0 mmHg Arterial Blood HCO3 18.1 L 21.0-28.0 mmol/L Arterial Blood Oxygen Saturation 99.8 H 94.0-98.0 % Arterial Blood Base Excess -6.5 L -2.0-3.0 mmol/L Arterial Blood Oxyhemoglobin 97.9 94.0-98.0 % Arterial Blood Carboxyhemoglobin 1.2 0.5-1.5 % Arterial Blood Methemoglobin 0.7 0.0-1.5 % Arterial Blood Deoxyhemoglobin 0.2 0.0-5.0 % Ranjith Test Modified Blood Gas Total Hemoglobin 15.60 12.0-16.0 g/dL Blood Gas Set Respiration Rate 14.0 Blood Gas Modality Mask - bipap Blood Gas Spontaneous Rate 15 FiO2 % 50.0 Blood Gas Spontaneous Tidal Volume 934 Blood Gas EPAP 5 Blood Gas IPAP 12 Troponin I High Sensitivity 21 </=34 ng/L Blood Gas Critical Value Read Back yes Blood Gas Notified Whom md blanca sanchez Blood Gas Notified Time [id number] Blood Gas Notified By edging catcher devin lopez White Blood Count 16.4 H 4.4-10.8 10^3/uL Red Blood Count 5.06 4.0-5.20 10^6/uL Hemoglobin 15.9 12.2-16.2 g/dL Hematocrit 47.5 H 36.0-46.0 % Mean Corpuscular Volume 93.9 80.0-100.0 fL Mean Corpuscular Hemoglobin 31.4 28.0-32.0 pg Mean Corpuscular Hemoglobin Concent 33.4 32.0-36.0 g/dL Red Cell Distribution Width 14.4 H 11.8-14.3 % Platelet Count 302 140-450 10^3/uL Mean Platelet Volume 8.5 6.9-10.8 fL Neutrophils (%) (Auto) 38.7 37.0-80.0 % Lymphocytes (%) (Auto) 40.7 10.0-50.0 % Monocytes (%) (Auto) 8.7 0.0-12.0 % Eosinophils (%) (Auto) 11.3 H 0.0-7.0 % Basophils (%) (Auto) 0.6 0.0-2.0 % Neutrophils # (Auto) 6.4 1.6-8.6 10 ^3/uL Lymphocytes # (Auto) 6.7 H 0.4-5.4 10 ^3/uL Monocytes # (Auto) 1.4 H 0-1.3 10 ^3/uL Eosinophils # (Auto) 1.9 H 0-0.8 10 ^3/uL Basophils # (Auto) 0.1 0-0.2 10 ^3/uL Nucleated Red Blood Cells 0.2 % Sodium Level 141 136-145 mmol/L Potassium Level 4.6 3.5-5.1 mmol/L Chloride Level 107 98-107 mmol/L Carbon Dioxide Level 23 20-31 mmol/L Anion Gap 11 5-15 Blood Urea Nitrogen 14 9-23 mg/dL Creatinine 1.22 H 0.550-1.02 mg/dL Glomerular Filtration Rate Calc 54 >90 mL/min BUN/Creatinine Ratio 11.5 10.0-20.0 Serum Glucose 132 H 74-106 mg/dL Calcium Level 9.7 8.7-10.4 mg/dL Total Bilirubin 0.8 0.2-1.0 mg/dL Aspartate Amino Transferase (AST) 46 H 13-40 U/L Alanine Aminotransferase (ALT) 85 H 7-40 U/L Alkaline Phosphatase 75 46-116 U/L B-Type Natriuretic Peptide 15.17 0-100 pg/mL Total Protein 7.0 5.7-8.2 g/dL Albumin 4.6 3.2-4.8 g/dL CHEST RADIOGRAPH FINDINGS: Lines and Tubes: None Lungs: No focal consolidation. Pleura: No effusion. No pneumothorax. Cardiomediastinal contours: Unremarkable Bones: No acute osseous abnormality. IMPRESSION: 1. No acute cardiopulmonary disease. SEPSIS Sepsis Screen Date sepsis recognized/suspect: Mar 10, 2025 Time Sepsis recognized/suspect: 729 Recent Procedure: No On Antibiotic Therapy: No Respiratory Rate >20: No Heart Rate >90: Yes Temp<36 C (96.8 F) or >38.3 C: No SBP <90 or MAP <65 mmHG: No New Acute Mental Status Change: No Is the patient on CPAP, BIPAP,: No Physician Orders Bill Cutter (03/10/25 ) Chest Portable (03/10/25 03:44) BIPAP (03/10/25 03:43) Abg W/ Co-Ox (03/10/25 04:00) Abg W/ Co-Ox (03/10/25 04:17) Abg W/ Co-Ox (03/10/25 06:30) Admit (03/10/25 08:19) Code Status (03/10/25 08:19) Sodium Chloride Lock (Saline Lock Ns) (03/10/25 14:00) Hydrocodone-Acet 5/325mg Tab ([place] 5/32 (03/10/25 08:30) Ondansetron Hcl (Zofran) (03/10/25 08:30) Docusate Sodium Capsule (Colace Capsule) (03/10/25 08:30) Enoxaparin Sodium (Lovenox) (03/10/25 10:00) Complete Blood Count (03/11/25 04:00) Comprehensive Metabolic Panel (03/11/25 04:00) Condition: Serious (03/10/25 08:19) Acetaminophen Tablet (Tylenol Tablet) (03/10/25 08:30) Nitroglycerin Sublingual (Ntrostat Subli (03/10/25 08:30) Morphine Sulfate Injection (03/10/25 08:30) Stat Ekg For Chest Pain (03/10/25 08:19) Notify Md Of Changes From Base (03/10/25 08:19) Banking Pin Adjuster For 24 Hours (03/10/25 08:19) Emergency Dysrhythmia Protocol (03/10/25 08:19) Rhythm Strips Once Every Shift (03/10/25 08:19) Oxygen By Nasal Cannula (03/10/25 08:19) Albuterol Medneb (Ventolin Medneb) (03/10/25 10:00) Ipratropium Medneb (Atrovent Medneb) (03/10/25 10:00) (Nf) Amlodipine Besylate (03/10/25 10:00) (Nf) Hydroxyzine Hcl (Hydroxyzine Hydroc (03/10/25 08:30) (Nf) Prednisone (03/10/25 10:00) Vital Signs Date Time Temp Pulse Resp B/P (MAP) Pulse Ox O2 Delivery O2 Flow Rate FiO2 03/10/25 07:30 98.2 108 18 122/62 (82) 96 98.2 03/10/25 07:30 108 18 96 Bi-Pap+ 50 50 03/10/25 07:13 103 03/10/25 05:17 131 03/10/25 05:01 138 20 168/78 (108) 93 03/10/25 04:48 141 23 156/85 (108) 93 03/10/25 04:46 143 23 131/72 (91) 86 03/10/25 04:39 148 23 182/158 (166) 96 03/10/25 04:38 98.3 160 28 129/83 100 100 98.3 03/10/25 04:17 157 21 165/123 (137) 98 03/10/25 04:13 160 03/10/25 04:05 114 36 96 Bi-Pap+ 50 50 03/10/25 04:03 28 99 Bi-Pap+ 100 100 03/10/25 04:03 150 Facial BiPAP Mask 100 03/10/25 04:00 154 03/10/25 03:45 98.7 144 23 212/113 (146) 99 98.7 03/10/25 03:37 98.3 150 36 129/83 80 98.3 Laboratory Tests Test 03/10/25 03:48 White Blood Count 16.4 10^3/uL (4.4-10.8) H Medications Medications Dose Ordered Sig/Aren Route Start Time Stop Time Status Last Admin Dose Admin Albuterol 20 mg ONCE ONCE NEB 03/10/25 03:45 03/10/25 03:46 DC 03/10/25 04:11 20 MG Dexamethasone Sodium Phosphate 10 mg ONCE ONCE IV 03/10/25 03:45 03/10/25 03:46 DC 03/10/25 03:55 10 MG Diphenhydramine HCl 25 mg ONCE ONCE IV 03/10/25 03:45 03/10/25 03:46 DC 03/10/25 03:54 25 MG Ipratropium [place] 1 mg ONCE ONCE NEB 03/10/25 03:45 03/10/25 03:46 DC 03/10/25 04:12 1 MG Lorazepam 1 mg ONCE ONCE IV 03/10/25 04:30 03/10/25 04:31 DC 03/10/25 04:27 1 MG Magnesium Sulfate/ Dextrose 100 ml @ 100 mls/hr ONCE ONCE IV 03/10/25 03:45 03/10/25 04:44 DC 03/10/25 04:03 100 MLS/HR Methylprednisolone Sodium Succinate 250 mg ONCE ONCE IV 03/10/25 03:45 03/10/25 03:46 DC 03/10/25 03:54 250 MG Sodium Chloride 1,000 ml @ 1,000 mls/hr Q1H ONCE IV 03/10/25 03:45 03/10/25 04:44 DC 03/10/25 04:25 1,000 MLS/HR Assessment/Plan Assessment/Plan Assessment: Acute hypoxic respiratory failure, Asthma exacerbation, MCAS, Morbid obesity, Plan: Admit to Tele, BiPAP as needed, Supplemental oxygen as needed, Breathing treatments Q 4 hours, Continue home PO steroids, TSH, Lupus, Autoimmune panel labs, PO antihistamine, Home medications reconciled, Plan discussed with: Patient, Daughter My Orders Orders - CHRISTIANA DAWKINS SELF PAY REPRESENTATIVE Procedure Category Date Status Time Admit ADMIT 03/10/25 Transmitted 08:19 Code Status CODE 03/10/25 Transmitted 08:19 Sodium Chloride Lock PHA 03/10/25 Logged (Saline Lock Ns) 14:00 Hydrocodone-Acet PHA 03/10/25 Logged 5/325mg Tab ([place] 08:30 Ondansetron Hcl PHA 03/10/25 Logged (Zofran) 08:30 Docusate Sodium PHA 03/10/25 Logged Capsule (Colace 08:30 Enoxaparin Sodium PHA 03/10/25 Logged (Lovenox) 10:00 Complete Blood Count LAB 03/11/25 Verified 04:00 Comprehensive LAB 03/11/25 Verified Metabolic Panel 04:00 Condition: Serious ZANDER 03/10/25 In Process 08:19 Acetaminophen Tablet PHA 03/10/25 Logged (Tylenol Tablet) 08:30 Nitroglycerin PHA 03/10/25 Logged Sublingual (Ntrostat 08:30 Morphine Sulfate PHA 03/10/25 Logged Injection 08:30 Stat Ekg For Chest ZANDER 03/10/25 In Process Pain 08:19 Notify Of Changes [facility]ANDER 03/10/25 In Process From Base 08:19 Banking Pin Adjuster For [facility] 03/10/25 In Process 24 Hours 08:19 Emergency Dysrhythmia [facility] 03/10/25 In Process Protocol 08:19 Rhythm Strips Once [facility] 03/10/25 In Process Every Shift 08:19 Oxygen By Nasal RT 03/10/25 Transmitted Cannula 08:19 Albuterol Medneb PHA 03/10/25 Logged (Ventolin Medneb) 10:00 Ipratropium Medneb PHA 03/10/25 Logged (Atrovent Medneb) 10:00 (Nf) Amlodipine PHA 03/10/25 Transmitted Besylate 10:00 (Nf) Hydroxyzine Hcl PHA 03/10/25 Transmitted (Hydroxyzine Hydroc 08:30 (Nf) Prednisone PHA 03/10/25 Transmitted 10:00 Date of Service: Mar 10, 2025 Billing Provider: CHRISTIANA DAWKINS Common Visit Codes: [id number] INP/OBS CARE (HIGH) CHRISTIANA DAWKINS Mar 10, 2025 08:51
[2025-03-10] MEDS ORDERED: MORPHINE SULFATE 4 MG/ML SYR/VIAL IV PRN (09:45)
[2025-03-10] MEDS: IPRATROPIUM BROM 0.5 MG/2.5ML INH SOL NEB SCH (10:23)
[2025-03-10] MEDS: ALBUTEROL SULF 2.5 MG/0.5ML(0.5%) NEB SOLN NEB SCH (10:23)
[2025-03-10] MEDS: LORATADINE 10 MG TAB PO SCH (10:28)
[2025-03-10] MEDS: predniSONE 20 MG TAB PO SCH (10:28)
[2025-03-10] MEDS: ENOXAPARIN SOD 40 MG/0.4 ML SYRINGE SC SCH (10:32)
--- NOTE | 2025-03-10 13:53 | ECG ---
[facility] Test Date: 2025-03-10 Test Time: 07:13:54 Pat Name: KARELY CONNOLLY Department: ED Room: 0214T Gender: F Acute Dialysis Registered Nurse: LORI : 1975 Requested By: ROBERT COUCH Order Number: [id number] Reading MD: Varghese Roberts Measurements Intervals [place] Rate: 103 P: 68 WV: 161 QRS: 63 QRSD: 89 T: 15 QT: 349 QTc: 457 Interpretive Statements Sinus tachycardia Left atrial enlargement Anteroseptal infarct, age indeterminate Baseline wander in lead(s) I,II,aVR,V4 Electronically Signed On 03-11-2025 20:08:57 PST by Varghese Roberts Please click the below link to view image of tracing.
--- NOTE | 2025-03-10 13:53 | ECG ---
[facility] Test Date: 2025-03-10 Test Time: 05:17:18 Pat Name: KARELY CONNOLLY Department: ED Room: 0214T Gender: F Melt Supervisor: ZIA : 1975 Requested By: ROBERT COUCH Order Number: [id number] Reading MD: Varghese Roberts Measurements Intervals [place] Rate: 131 P: 110 CA: 161 QRS: 69 QRSD: 69 T: -1 QT: 339 QTc: 501 Interpretive Statements Sinus tachycardia Probable left atrial enlargement Low voltage, precordial leads Anteroseptal infarct, old Electronically Signed On 03-11-2025 20:08:47 PST by Varghese Roberts Please click the below link to view image of tracing.
--- NOTE | 2025-03-10 13:53 | ECG ---
[facility] Test Date: 2025-03-10 Test Time: 04:13:03 Pat Name: KARELY CONNOLLY Department: ED Room: 0214T Gender: F Rug Sample Beveler: ZIA : 1975 Requested By: ROBERT COUCH Order Number: [id number] Reading MD: Varghese Roberts Measurements Intervals [place] Rate: 160 P: 0 TX: 131 QRS: 76 QRSD: 75 T: 66 QT: 305 QTc: 498 Interpretive Statements Sinus tachycardia Ventricular premature complex LAE, consider biatrial enlargement Anteroseptal infarct, age indeterminate Artifact in lead(s) I,II,III,aVR,aVL,aVF,V3,V4,V5,V6 and baseline wander in lead(s) V4 Electronically Signed On 03-11-2025 20:08:43 PST by Varghese Roberts Please click the below link to view image of tracing.
[2025-03-10] MEDS: SODIUM CHLOR 0.9% PF (SALINE LOCK) 10ML VIAL/SYR IV SCH (14:25)
[2025-03-10] MEDS ORDERED: TEMAZEPAM 15 MG CAP PO ONE (21:45)
[2025-03-10] MEDS: hydrOXYzine 25 MG TAB or CAP PO PRN (23:07)
[2025-03-11] VITALS (17 sets, daily range): BP systolic 125–151; BP diastolic 72–90; PULSE 90–107; RESP 16–21; TEMP 97.1–98.7; O2SAT 96–100
[2025-03-11 06:14] LABS: Hematocrit 44.4 % (36.0-46.0); Hemoglobin 14.6 g/dL (12.2-16.2); Mean Corpuscular Hemoglobin 30.6 pg (28.0-32.0); Mean Corpuscular Volume 93.2 fL (80.0-100.0); Nucleated Red Blood Cells % 0.1 %
[2025-03-11 06:27] LABS: Albumin 4.2 g/dL (3.2-4.8); Alkaline Phosphatase 58 U/L (46-116); Anion Gap 12 (5-15); BUN/Creatinine Ratio 16.2 (10.0-20.0); Blood Urea Nitrogen 16 mg/dL (9-23); Calcium 9.7 mg/dL (8.7-10.4); Carbon Dioxide 24 mmol/L (20-31); Chloride 106 mmol/L (98-107); Potassium 4.4 mmol/L (3.5-5.1); Sodium 142 mmol/L (136-145); Total Protein 6.4 g/dL (5.7-8.2)
[2025-03-11 06:28] LABS: Bilirubin, Total 0.5 mg/dL (0.2-1.0)
[2025-03-11 06:31] LABS: Alanine Aminotransferase 67 U/L (7-40); Glucose 117 mg/dL (74-106)
--- NOTE | 2025-03-11 14:25 | DVHPN2 ---
Changes from previous H/P or p: No Changes Eyes: No Pain, No Vision change, No Conjunctivae inflammation, No Eyelid inflammation, No Other, No Redness ENT: No Ear pain, No Ear discharge, No Nose pain, No Nose discharge, No Nose congestion, No Mouth pain, No Mouth swelling, No Throat pain, No Throat swelling, No Other Cardiovascular: No Chest Pain, No Palpitations, No Orthopnea, No Paroxysmal Noc. Dyspnea, No Edema, No Lt Headedness, No Other Respiratory: No Cough, No Dry; Shortness of breath; No SOB with excertion, No Wheezing, No Hemoptysis, No Pleuritic Pain, No Sputum, No Other Gastrointestinal: No Nausea, No Vomiting, No Abdominal Pain, No Diarrhea, No Constipation, No Melena, No Hematochezia, No Other Genitourinary: No Dysuria, No Frequency, No Incontinence, No Hematuria, No Retention, No Other Musculoskeletal: No other, No neck pain, No shoulder pain, No arm pain, No back pain, No hand pain, No leg pain, No foot pain Skin: No Rash, No Lesions, No Jaundice, No Bruising, No Other Objective Vitals Vital Signs Date Time Temp Pulse Resp B/P (MAP) Pulse Ox O2 Delivery O2 Flow Rate FiO2 03/11/25 12:58 98.7 92 21 137/80 (99) 97 98.7 03/11/25 10:30 Nasal Cannula 1.0 03/11/25 10:30 24 Intake/Output Intake and Output 03/11/25 07:00 Intake Total 400 ml Balance 400 ml Intake Oral 400 ml # Voids 3 Medications Current Medications Medications Dose Ordered Sig/Aren Route Start Time Stop Time Status Last Admin Dose Admin Sodium Chloride 10 ml Q8HR IV 03/10/25 14:00 03/11/25 13:24 10 ML Acetaminophen/ Hydrocodone Bitart 1 tab Q4HP PRN PO 03/10/25 08:30 Ondansetron HCl 4 mg Q4HP PRN IV 03/10/25 08:30 Docusate Sodium 100 mg BIDPRN PRN PO 03/10/25 08:30 Enoxaparin Sodium 40 mg DAILY SC 03/10/25 10:00 03/10/25 10:32 40 MG Acetaminophen 650 mg Q6HP PRN PO 03/10/25 08:30 Nitroglycerin 0.4 mg Q5MINP PRN SL 03/10/25 08:30 Morphine Sulfate 2 mg Q30M PRN IV 03/10/25 09:45 Albuterol 2.5 mg Q4HWA [facility] 03/10/25 10:00 03/11/25 10:34 2.5 MG Ipratropium [place] 0.5 mg Q4HWA NEB 03/10/25 10:00 03/11/25 10:34 0.5 MG Amlodipine Besylate 10 mg DAILY PO 03/10/25 10:00 03/11/25 09:55 10 MG Hydroxyzine Pamoate 50 mg TIDP PRN PO 03/10/25 10:00 03/10/25 23:07 50 MG Prednisone 20 mg BID PO 03/10/25 10:00 03/11/25 09:55 20 MG Loratadine 10 mg DAILY PO 03/10/25 10:00 03/11/25 09:54 10 MG Laboratory Results Laboratory Tests 03/11/25 05:27 Chemistry Test 03/11/25 05:27 Albumin 4.2 g/dL (3.2-4.8) Calcium Level 9.7 mg/dL (8.7-10.4) Total Protein 6.4 g/dL (5.7-8.2) LFT Test 03/11/25 05:27 Alanine Aminotransferase (ALT) 67 U/L (7-40) H Alkaline Phosphatase 58 U/L (46-116) Aspartate Amino Transferase (AST) 34 U/L (13-40) Total Bilirubin 0.5 mg/dL (0.2-1.0) Labs and/or images reviewed: Labs reviewed by me, Image(s) reviewed by me Assessment/Plan Assessment/Plan Sepsis possibly secondary to community-acquired pneumonia Rocephin azithromycin, consult for Dr. Saucedo Acute hypoxic respiratory failure, oxygen by nasal cannula Asthma exacerbation, albuterol Atrovent Solu-Medrol Mast cell activation syndrome History of intubation Morbid obesity, Plan discussed with: Patient Date of Service: Mar 11, 2025 Billing Provider: NAEEM ORO MD Common Visit Codes: [id number] INP/OBS CARE(HIGH) NAEEM ORO MD Mar 11, 2025 14:25
[2025-03-11] MEDS: ONDANSETRON HCL 4 MG/2 ML VIAL IV PRN (15:14)
[2025-03-11] MEDS: AZITHROMYCIN 500MG/250ML 250 ML IV ONE (15:34)
[2025-03-11] MEDS ORDERED: IPRATROPIUM BROM 0.5 MG/2.5ML INH SOL NEB SCH (18:00)
[2025-03-11] MEDS ORDERED: ALBUTEROL SULF 2.5 MG/0.5ML(0.5%) NEB SOLN NEB SCH (18:00)
[2025-03-11] MEDS: BUDESONIDE (INHALATION) 0.5 MG/2 ML NEB NEB SCH (18:21)
[2025-03-11] MEDS: BUDESONIDE (INHALATION) 0.5 MG/2 ML NEB ONE (18:21)
[2025-03-11] MEDS: MONTELUKAST SODIUM 10 MG TAB PO SCH (21:05)
--- NOTE | 2025-03-11 22:08 | DVHINCON2 ---
Date of service: Mar 11, 2025 Referring Physician ZIA Mccurdy Reason for Consultation Acute hypoxic respiratory failure. History of Present Illness A 49-year-old woman with past medical history of asthma and mast cell activation syndrome, who presented to ED on 03/10/25 with complaint of shortness of breath. Patient was admitted here in November 2024 for similar complaints. She was intubated and in ICU for over a week during that admission. She states since going home her MCAS has worsened and she has more triggers. Pt states she was triggered by a smell on the morning of presentation and felt the asthma attack/MCAS coming on. She used her EpiPen, but it was not enough, so EMS was called. When EMS arrived her oxygenation was 80% on RA. She was given a breathing treatment, placed on BiPAP and brought to the hospital. Patient was admitted for further care. Pulmonary consultation is requested for evaluation and management of acute hypoxic respiratory failure. Review of Systems: 14-point review of systems negative unless otherwise noted above. Past Medical History: Asthma and mast cell activation syndrome Past Surgical History: None Medications: Reviewed. Allergies: Propofol. Gluten meal. Lactose intolerance Family History: DM, atrial fibrillation, cervical cancer, breast cancer, diverticulitis, bipolar disorder, anxiety/depression. Social History: Nonsmoker. No alcohol or illicit drug use. Family History: Anxiety disorder 19 CHILD Cervical cancer G8 SISTER Depression 19 CHILD Diabetes mellitus G8 FATHER Eczema 19 CHILD FH: atrial fibrillation G8 MOTHER G8 FATHER FH: bipolar disorder 19 CHILD FH: breast cancer G8 SISTER FH: diverticulitis G8 MOTHER G8 SISTER Hypoglycemia G8 MOTHER Allergies: Coded Allergies: Gluten Meal (Verified Allergy, Severe, 12/16/24) Lactose Intolerance (GI) (Verified Allergy, Severe, nausea, 12/16/24) Propofol (Verified Allergy, Unknown, 03/10/25) Home Meds Reported Medications Amlodipine Besylate (Amlodipine Besylate) 10 Mg Tab, 1 TAB PO DAILY 03/10/25 Hydroxyzine HCl (Hydroxyzine Hydrochloride) 50 Mg Tab, 1 TAB PO TIDP PRN 03/10/25 Prednisone (Prednisone) 10 Mg Tab, 30 MG PO BID 03/10/25 Current Medications Current Medications Medications (Trade) Dose Ordered Sig/Aren Route PRN Reason Start Time Stop Time Status Last Admin Ceftriaxone Sodium 50 ml @ 100 mls/hr DAILY@09 IV 03/12/25 09:00 Azithromycin 250 ml @ 125 mls/hr DAILY IV 03/12/25 10:00 Montelukast Sodium (Singulair Tablet) 10 mg HS PO 03/11/25 22:00 03/11/25 21:05 Albuterol (Ventolin Medneb) 2.5 mg Q6HWA NEB 03/11/25 18:00 03/11/25 18:03 DC Ipratropium [place] (Atrovent Medneb) 0.5 mg Q6HWA NEB 03/11/25 18:00 03/11/25 18:10 DC Budesonide (Pulmicort) 0.5 mg BID NEB 03/11/25 22:00 03/11/25 18:21 Albuterol (Ventolin Medneb) 2.5 mg Q6HWA [facility] 03/12/25 06:00 Ipratropium [place] (Atrovent Medneb) 0.5 mg Q6HWA [facility] 03/12/25 06:00 Vital Signs Vital Signs Date Time Temp Pulse Resp B/P (MAP) Pulse Ox O2 Delivery O2 Flow Rate FiO2 03/11/25 21:00 97.1 101 18 125/74 (91) 96 97.1 03/11/25 17:56 Nasal Cannula 1.0 03/11/25 17:56 24 Physical Exam Gen.: Patient lying in bed in no apparent distress. On supplemental oxygen. Head: Normocephalic, atraumatic. Eyes: EOMI/PERRLA. Ears: Normal hearing. Normal anatomy. Neck/trachea: Trachea midline, supple. Nose: Normal external anatomy. Mouth: Moist mucous membranes. Chest: Decreased air entry bilaterally. No wheezing or rhonchi. Cardiovascular: Positive S1, positive S2. Regular rate and rhythm. Abdomen: Positive bowel sounds in all 4 quadrants. Soft, non-tender, non- distended. : Deferred. Rectal: Deferred. Skin: Warm, dry. Intact. Extremities: 2+ radial pulses bilaterally. No lower extremity edema. Neuro: Awake, alert, oriented x3. No gross motor or sensory deficits. Cranial nerves II through XII intact. Gait not assessed. Labs/Diagnostic Data Labs Test 03/11/25 05:27 03/10/25 07:00 03/10/25 06:42 12/10/25 04:20 Range/Units White Blood Count 13.1 H 4.4-10.8 10^3/uL Red Blood Count 4.77 4.0-5.20 10^6/uL Hemoglobin 14.6 12.2-16.2 g/dL Hematocrit 44.4 36.0-46.0 % Mean Corpuscular Volume 93.2 80.0-100.0 fL Mean Corpuscular Hemoglobin 30.6 28.0-32.0 pg Mean Corpuscular Hemoglobin Concent 32.9 32.0-36.0 g/dL Red Cell Distribution Width 13.7 11.8-14.3 % Platelet Count 198 140-450 10^3/uL Mean Platelet Volume 8.4 6.9-10.8 fL Neutrophils (%) (Auto) 89.5 H 37.0-80.0 % Lymphocytes (%) (Auto) 5.6 L 10.0-50.0 % Monocytes (%) (Auto) 4.8 0.0-12.0 % Eosinophils (%) (Auto) 0.0 0.0-7.0 % Basophils (%) (Auto) 0.1 0.0-2.0 % Neutrophils # (Auto) 11.7 H 1.6-8.6 10 ^3/uL Lymphocytes # (Auto) 0.7 0.4-5.4 10 ^3/uL Monocytes # (Auto) 0.6 0-1.3 10 ^3/uL Eosinophils # (Auto) 0 0-0.8 10 ^3/uL Basophils # (Auto) 0 0-0.2 10 ^3/uL Nucleated Red Blood Cells 0.1 % Sodium Level 142 136-145 mmol/L Potassium Level 4.4 3.5-5.1 mmol/L Chloride Level 106 98-107 mmol/L Carbon Dioxide Level 24 20-31 mmol/L Anion Gap 12 5-15 Blood Urea Nitrogen 16 9-23 mg/dL Creatinine 0.99 0.550-1.02 mg/dL Glomerular Filtration Rate Calc 69 >90 mL/min BUN/Creatinine Ratio 16.2 10.0-20.0 Serum Glucose 117 H 74-106 mg/dL Calcium Level 9.7 8.7-10.4 mg/dL Total Bilirubin 0.5 0.2-1.0 mg/dL Aspartate Amino Transferase (AST) 34 13-40 U/L Alanine Aminotransferase (ALT) 67 H 7-40 U/L Alkaline Phosphatase 58 46-116 U/L Total Protein 6.4 5.7-8.2 g/dL Albumin 4.2 3.2-4.8 g/dL Blood Gas Specimen Type Arterial Blood Gas Sample Site Left radial Blood Gas Patient Temperature 37.0 Arterial Blood Date Drawn [id number] Arterial Blood pH 7.346 L 7.350-7.450 Arterial Blood Partial Pressure CO2 33.8 32.0-45.0 mmHg Arterial Blood Partial Pressure O2 214.2 H 83.0-108.0 mmHg Arterial Blood HCO3 18.1 L 21.0-28.0 mmol/L Arterial Blood Oxygen Saturation 99.8 H 94.0-98.0 % Arterial Blood Base Excess -6.5 L -2.0-3.0 mmol/L Arterial Blood Oxyhemoglobin 97.9 94.0-98.0 % Arterial Blood Carboxyhemoglobin 1.2 0.5-1.5 % Arterial Blood Methemoglobin 0.7 0.0-1.5 % Arterial Blood Deoxyhemoglobin 0.2 0.0-5.0 % Ranjith Test Modified Blood Gas Total Hemoglobin 15.60 12.0-16.0 g/dL Blood Gas Set Respiration Rate 14.0 Blood Gas Modality Mask - bipap Blood Gas Spontaneous Rate 15 FiO2 % 50.0 Blood Gas Spontaneous Tidal Volume 934 Blood Gas EPAP 5 Blood Gas IPAP 12 Troponin I High Sensitivity 21 </=34 ng/L Thyroid Stimulating Hormone (TSH) 1.02 0.55-4.78 uIU/mL Blood Gas Critical Value Read Back yes Blood Gas Notified Whom md blanca sanchez Blood Gas Notified Time [id number] Blood Gas Notified By rajesh lopez Test 03/10/25 03:48 Range/Units B-Type Natriuretic Peptide 15.17 0-100 pg/mL Assessment Impression: Acute hypoxic respiratory failure Mast cell activation (syndrome) Pulmonary edema Seasonal allergies Hiatal hernia Morbid obesity Snoring Plan: Supplemental oxygen Titrate to keep O2 sats above 92%. Chest x-ray reviewed, shows no acute opacities. Continue bronchodilators. INH Albuterol HFA and ipratropium Flovent BID On Singulair q.h.s and Claritin for allergies Continue antibiotics Continue steroids Incentive spirometry Monitor renal function. Monitor electrolytes. Supplement as necessary. Monitor ins and outs. Refer patient to Allergy and Immunology for evaluation (Dr. Monsalve) Refer to sleep specialist for evaluation of KARYN. Recommend diet and lifestyle modifications for weight reduction Obesity complicates all care DVT prophylaxis. Prognosis: Poor given patient's multiple co-morbidities. Rest of plan per hospitalist and other consultants. Thank you, CD TECHNICIAN Kaz, for allowing me to participate in this patient's care. Further recommendations will depend on the patient's clinical course. Please do not hesitate to contact me if you have any questions or concerns. This medical document was created using an electronic medical record system with [employer] dictation system. Although these documentations are being carefully reviewed, there may still be some phonetic and typographical changes. The errors are purely typographical, due to imperfection on the software program, and do not reflect any compromise in the patient's medical care. Plan discussed with: Patient, Other (DAVID Villegas/) Visit Coding Pulmonary Billing Provider: DEA SANCHEZ MD Date of Service if different f: Mar 11, 2025 Common Visit Codes: [id number] INP/OBS CARE (HIGH) DEA SANCHEZ MD Mar 11, 2025 22:08
[2025-03-12] VITALS (13 sets, daily range): BP systolic 122–152; BP diastolic 71–87; PULSE 84–100; RESP 17–18; TEMP 97.1–99; O2SAT 90–100
[2025-03-12] MEDS: ALBUTEROL SULF 2.5 MG/0.5ML(0.5%) NEB SOLN NEB SCH (07:06)
[2025-03-12] MEDS: IPRATROPIUM BROM 0.5 MG/2.5ML INH SOL NEB SCH (07:06)
--- NOTE | 2025-03-12 08:41 | DVHPN2 ---
Reviewed: Care Plan Changes from previous H/P or p: No Changes Eyes: No Pain, No Vision change, No Conjunctivae inflammation, No Eyelid inflammation, No Other, No Redness ENT: No Ear pain, No Ear discharge, No Nose pain, No Nose discharge, No Nose congestion, No Mouth pain, No Mouth swelling, No Throat pain, No Throat swelling, No Other Cardiovascular: No Chest Pain, No Palpitations, No Orthopnea, No Paroxysmal Noc. Dyspnea, No Edema, No Lt Headedness, No Other Respiratory: No Cough, No Dry; Shortness of breath; No SOB with excertion, No Wheezing, No Hemoptysis, No Pleuritic Pain, No Sputum, No Other Gastrointestinal: No Nausea, No Vomiting, No Abdominal Pain, No Diarrhea, No Constipation, No Melena, No Hematochezia, No Other Genitourinary: No Dysuria, No Frequency, No Incontinence, No Hematuria, No Retention, No Other Musculoskeletal: No other, No neck pain, No shoulder pain, No arm pain, No back pain, No hand pain, No leg pain, No foot pain Skin: No Rash, No Lesions, No Jaundice, No Bruising, No Other Objective Vitals Vital Signs Date Time Temp Pulse Resp B/P (MAP) Pulse Ox O2 Delivery O2 Flow Rate FiO2 03/12/25 07:14 100 18 99 03/12/25 07:06 Nasal Cannula* 1 24 03/12/25 05:00 97.1 132/78 (96) 97.1 Intake/Output Intake and Output 03/12/25 07:00 Intake Total 2700 ml Balance 2700 ml Intake Oral 2700 ml # Voids 8 # Bowel Movements 1 Medications Current Medications Medications Dose Ordered Sig/Aren Route Start Time Stop Time Status Last Admin Dose Admin Sodium Chloride 10 ml Q8HR IV 03/10/25 14:00 03/11/25 21:05 10 ML Acetaminophen/ Hydrocodone Bitart 1 tab Q4HP PRN PO 03/10/25 08:30 Ondansetron HCl 4 mg Q4HP PRN IV 03/10/25 08:30 03/11/25 15:14 4 MG Docusate Sodium 100 mg BIDPRN PRN PO 03/10/25 08:30 Enoxaparin Sodium 40 mg DAILY SC 03/10/25 10:00 03/10/25 10:32 40 MG Acetaminophen 650 mg Q6HP PRN PO 03/10/25 08:30 Nitroglycerin 0.4 mg Q5MINP PRN SL 03/10/25 08:30 Morphine Sulfate 2 mg Q30M PRN IV 03/10/25 09:45 Amlodipine Besylate 10 mg DAILY PO 03/10/25 10:00 03/11/25 09:55 10 MG Hydroxyzine Pamoate 50 mg TIDP PRN PO 03/10/25 10:00 03/11/25 21:15 50 MG Prednisone 20 mg BID PO 03/10/25 10:00 03/11/25 21:05 20 MG Loratadine 10 mg DAILY PO 03/10/25 10:00 03/11/25 09:54 10 MG Ceftriaxone Sodium 50 ml @ 100 mls/hr DAILY@09 IV 03/12/25 09:00 Azithromycin 250 ml @ 125 mls/hr DAILY IV 03/12/25 10:00 Montelukast Sodium 10 mg HS PO 03/11/25 22:00 03/11/25 21:05 10 MG Budesonide 0.5 mg BID NEB 03/11/25 22:00 03/12/25 07:06 0.5 MG Albuterol 2.5 mg Q6HWA NEB 03/12/25 06:00 03/12/25 07:06 2.5 MG Ipratropium [place] 0.5 mg Q6HWA NEB 03/12/25 06:00 03/12/25 07:06 0.5 MG Laboratory Results Laboratory Tests 03/11/25 05:27 Labs and/or images reviewed: Labs reviewed by me, Image(s) reviewed by me Assessment/Plan Assessment/Plan Sepsis possibly secondary to community-acquired pneumonia Rocephin azithromycin, consult for Dr. Saucedo appreciated Acute hypoxic respiratory failure, oxygen by nasal cannula Asthma exacerbation, albuterol Atrovent Solu-Medrol Mast cell activation syndrome History of intubation Morbid obesity, Time spent 50 minutes RN Don at bedside Plan discussed with: Patient My Orders Orders - NAEEM ORO MD Procedure Category Date Status Time Ceftriaxone 1gm/50ml PHA 03/12/25 In Process (Rocephin) 09:00 Azithromycin PHA 03/12/25 In Process 500mg/250ml 10:00 *Consult CONS 03/11/25 Transmitted 14:25 Montelukast Tablet PHA 12/11/25 In Process (Singulair Tablet) 22:00 * Tar [place]er CONS 03/11/25 Transmitted Consult Date of Service: Mar 12, 2025 Billing Provider: NAEEM ORO MD Common Visit Codes: [id number] INP/OBS CARE(HIGH) NAEEM ORO MD Mar 12, 2025 08:41
[2025-03-12] MEDS: AZITHROMYCIN 500MG/250ML 250 ML IV SCH (13:21)
--- NOTE | 2025-03-12 22:30 | DVHPN2 ---
Subjective DOS: 03/12/2025 Patient seen and examined at bedside. Remains on supplemental oxygen Overnight events reviewed. Reviewed: Care Plan Changes from previous H/P or p: No Changes Eyes: No Pain, No Vision change, No Conjunctivae inflammation, No Eyelid inflammation, No Other, No Redness ENT: No Ear pain, No Ear discharge, No Nose pain, No Nose discharge, No Nose congestion, No Mouth pain, No Mouth swelling, No Throat pain, No Throat swelling, No Other Cardiovascular: No Chest Pain, No Palpitations, No Orthopnea, No Paroxysmal Noc. Dyspnea, No Edema, No Lt Headedness, No Other Respiratory: No Cough, No Dry; Shortness of breath; No SOB with excertion, No Wheezing, No Hemoptysis, No Pleuritic Pain, No Sputum, No Other Gastrointestinal: No Nausea, No Vomiting, No Abdominal Pain, No Diarrhea, No Constipation, No Melena, No Hematochezia, No Other Genitourinary: No Dysuria, No Frequency, No Incontinence, No Hematuria, No Retention, No Other Musculoskeletal: No other, No neck pain, No shoulder pain, No arm pain, No back pain, No hand pain, No leg pain, No foot pain Skin: No Rash, No Lesions, No Jaundice, No Bruising, No Other Objective Vitals Vital Signs Date Time Temp Pulse Resp B/P (MAP) Pulse Ox O2 Delivery O2 Flow Rate FiO2 03/12/25 21:00 97.7 86 17 122/76 (91) 90 97.7 03/12/25 12:42 Room Air* 0 21 Intake/Output Intake and Output 03/12/25 07:00 Intake Total 2700 ml Balance 2700 ml Intake Oral 2700 ml # Voids 8 # Bowel Movements 1 Exam Gen.: Patient lying in bed in no apparent distress. On supplemental oxygen. Head: Normocephalic, atraumatic. Eyes: EOMI/PERRLA. Ears: Normal hearing. Normal anatomy. Neck/trachea: Trachea midline, supple. Nose: Normal external anatomy. Mouth: Moist mucous membranes. Chest: Decreased air entry bilaterally. No wheezing or rhonchi. Cardiovascular: Positive S1, positive S2. Regular rate and rhythm. Abdomen: Positive bowel sounds in all 4 quadrants. Soft, non-tender, non- distended. : Deferred. Rectal: Deferred. Skin: Warm, dry. Intact. Extremities: 2+ radial pulses bilaterally. No lower extremity edema. Neuro: Awake, alert, oriented x3. No gross motor or sensory deficits. Cranial nerves II through XII intact. Gait not assessed. Medications Current Medications Medications Dose Ordered Sig/Aren Route Start Time Stop Time Status Last Admin Dose Admin Sodium Chloride 10 ml Q8HR IV 03/10/25 14:00 03/12/25 21:46 10 ML Acetaminophen/ Hydrocodone Bitart 1 tab Q4HP PRN PO 03/10/25 08:30 Ondansetron HCl 4 mg Q4HP PRN IV 03/10/25 08:30 03/12/25 11:02 4 MG Docusate Sodium 100 mg BIDPRN PRN PO 03/10/25 08:30 Enoxaparin Sodium 40 mg DAILY SC 03/10/25 10:00 03/12/25 09:42 40 MG Acetaminophen 650 mg Q6HP PRN PO 03/10/25 08:30 Nitroglycerin 0.4 mg Q5MINP PRN SL 03/10/25 08:30 Morphine Sulfate 2 mg Q30M PRN IV 03/10/25 09:45 Amlodipine Besylate 10 mg DAILY PO 03/10/25 10:00 03/12/25 09:42 10 MG Hydroxyzine Pamoate 50 mg TIDP PRN PO 03/10/25 10:00 03/12/25 21:52 25 MG Prednisone 20 mg BID PO 03/10/25 10:00 03/12/25 21:46 20 MG Loratadine 10 mg DAILY PO 03/10/25 10:00 03/12/25 09:40 10 MG Ceftriaxone Sodium 50 ml @ 100 mls/hr DAILY@09 IV 03/12/25 09:00 03/12/25 11:06 100 MLS/HR Azithromycin 250 ml @ 125 mls/hr DAILY IV 03/12/25 10:00 03/12/25 13:21 125 MLS/HR Montelukast Sodium 10 mg HS PO 03/11/25 22:00 03/12/25 21:46 10 MG Budesonide 0.5 mg BID NEB 03/11/25 22:00 03/12/25 19:02 0.5 MG Albuterol 2.5 mg Q6HWA NEB 03/12/25 06:00 03/12/25 19:02 2.5 MG Ipratropium [place] 0.5 mg Q6HWA NEB 03/12/25 06:00 03/12/25 19:02 0.5 MG Laboratory Results Laboratory Tests 03/11/25 05:27 Assessment/Plan Assessment/Plan Impression: Acute hypoxic respiratory failure Mast cell activation (syndrome) Pulmonary edema Seasonal allergies Hiatal hernia Morbid obesity Snoring Events: Remains on supplemental oxygen, 1 LPM NC Taper O2 as tolerated Continue bronchodilators/Pulmicort Continue steroids Continue antibiotics Continue Singulair/Claritin for allergies Incentive spirometry Monitor renal function. Maintain euvolemia Monitor electrolytes. Supplement as necessary. Monitor ins and outs. Labs and imaging reviewed. Rest of plan as noted below. Plan: Supplemental oxygen Titrate to keep O2 sats above 92%. Chest x-ray reviewed, shows no acute opacities. Continue bronchodilators. INH Albuterol HFA and ipratropium Flovent BID On Singulair q.h.s and Claritin for allergies Continue antibiotics Continue steroids Incentive spirometry Monitor renal function. Monitor electrolytes. Supplement as necessary. Monitor ins and outs. Refer patient to Allergy and Immunology for evaluation (Dr. Monsalve) Refer to sleep specialist for evaluation of KARYN. Recommend diet and lifestyle modifications for weight reduction Obesity complicates all care DVT prophylaxis. Prognosis: Guarded given patient's multiple co-morbidities. Rest of plan per hospitalist and other consultants. Thank you, ZIA Mccurdy, for allowing me to participate in this patient's care. Further recommendations will depend on the patient's clinical course. Please do not hesitate to contact me if you have any questions or concerns. This medical document was created using an electronic medical record system with [employer] dictation system. Although these documentations are being carefully reviewed, there may still be some phonetic and typographical changes. The errors are purely typographical, due to imperfection on the software program, and do not reflect any compromise in the patient's medical care. Plan discussed with: Patient, Other (RN Maxx) Visit Coding Pulmonary Billing Provider: DEA SANCHEZ MD Date of Service if different f: Mar 12, 2025 Common Visit Codes: [id number] INP/OBS CARE(HIGH) DEA SANCHEZ MD Mar 12, 2025 22:30
[2025-03-13] VITALS (19 sets, daily range): BP systolic 130–145; BP diastolic 80–95; PULSE 64–88; RESP 16–18; TEMP 96.9–98.1; O2SAT 93–100
--- NOTE | 2025-03-13 09:27 | DVHPN2 ---
Reviewed: Care Plan Changes from previous H/P or p: No Changes Eyes: No Pain, No Vision change, No Conjunctivae inflammation, No Eyelid inflammation, No Other, No Redness ENT: No Ear pain, No Ear discharge, No Nose pain, No Nose discharge, No Nose congestion, No Mouth pain, No Mouth swelling, No Throat pain, No Throat swelling, No Other Cardiovascular: No Chest Pain, No Palpitations, No Orthopnea, No Paroxysmal Noc. Dyspnea, No Edema, No Lt Headedness, No Other Respiratory: No Cough, No Dry; Shortness of breath; No SOB with excertion, No Wheezing, No Hemoptysis, No Pleuritic Pain, No Sputum, No Other Gastrointestinal: No Nausea, No Vomiting, No Abdominal Pain, No Diarrhea, No Constipation, No Melena, No Hematochezia, No Other Genitourinary: No Dysuria, No Frequency, No Incontinence, No Hematuria, No Retention, No Other Musculoskeletal: No other, No neck pain, No shoulder pain, No arm pain, No back pain, No hand pain, No leg pain, No foot pain Skin: No Rash, No Lesions, No Jaundice, No Bruising, No Other Objective Vitals Vital Signs Date Time Temp Pulse Resp B/P (MAP) Pulse Ox O2 Delivery O2 Flow Rate FiO2 03/13/25 09:17 85 18 145/80 95 0.0 03/13/25 08:49 98.1 98.1 03/13/25 08:00 Nasal Cannula* 24 Intake/Output Intake and Output 03/13/25 07:00 Intake Total 2650 ml Balance 2650 ml Intake Oral 2650 ml # Voids 7 Medications Current Medications Medications Dose Ordered Sig/Aren Route Start Time Stop Time Status Last Admin Dose Admin Sodium Chloride 10 ml Q8HR IV 03/10/25 14:00 03/13/25 05:44 10 ML Acetaminophen/ Hydrocodone Bitart 1 tab Q4HP PRN PO 03/10/25 08:30 Ondansetron HCl 4 mg Q4HP PRN IV 03/10/25 08:30 03/12/25 11:02 4 MG Docusate Sodium 100 mg BIDPRN PRN PO 03/10/25 08:30 Enoxaparin Sodium 40 mg DAILY SC 03/10/25 10:00 03/13/25 09:07 40 MG Acetaminophen 650 mg Q6HP PRN PO 03/10/25 08:30 Nitroglycerin 0.4 mg Q5MINP PRN SL 03/10/25 08:30 Morphine Sulfate 2 mg Q30M PRN IV 03/10/25 09:45 Amlodipine Besylate 10 mg DAILY PO 03/10/25 10:00 03/13/25 09:10 10 MG Hydroxyzine Pamoate 50 mg TIDP PRN PO 03/10/25 10:00 03/13/25 05:41 25 MG Prednisone 20 mg BID PO 03/10/25 10:00 03/13/25 09:06 20 MG Loratadine 10 mg DAILY PO 03/10/25 10:00 03/13/25 09:06 10 MG Ceftriaxone Sodium 50 ml @ 100 mls/hr DAILY@09 IV 03/12/25 09:00 03/13/25 08:56 100 MLS/HR Azithromycin 250 ml @ 125 mls/hr DAILY IV 03/12/25 10:00 03/12/25 13:21 125 MLS/HR Montelukast Sodium 10 mg HS PO 03/11/25 22:00 03/12/25 21:46 10 MG Budesonide 0.5 mg BID NEB 03/11/25 22:00 03/13/25 06:25 0.5 MG Albuterol 2.5 mg Q6HWA NEB 03/12/25 06:00 03/13/25 06:25 2.5 MG Ipratropium [place] 0.5 mg Q6HWA NEB 03/12/25 06:00 03/13/25 06:25 0.5 MG Laboratory Results Laboratory Tests 03/11/25 05:27 Labs and/or images reviewed: Labs reviewed by me, Image(s) reviewed by me Assessment/Plan Assessment/Plan Sepsis possibly secondary to community-acquired pneumonia Rocephin azithromycin, consult for Dr. Saucedo appreciated Acute hypoxic respiratory failure, oxygen by nasal cannula Asthma exacerbation, albuterol Atrovent q.4 hours Solu-Medrol Mast cell activation syndrome History of intubation Morbid obesity, Time spent 50 minutes RN Maxx at bedside Plan discussed with: Patient Date of Service: Mar 13, 2025 Billing Provider: NAEEM ROO MD Common Visit Codes: [id number] INP/OBS CARE(HIGH) NAEEM ORO MD Mar 13, 2025 09:27
[2025-03-13] MEDS: ALBUTEROL SULF 2.5 MG/0.5ML(0.5%) NEB SOLN NEB SCH (10:33)
[2025-03-13] MEDS: IPRATROPIUM BROM 0.5 MG/2.5ML INH SOL NEB SCH (10:33)
--- NOTE | 2025-03-13 23:43 | DVHPN2 ---
Subjective DOS: 03/13/2025 Patient seen and examined at bedside. Remains on supplemental oxygen Overnight events reviewed. Reviewed: Care Plan Changes from previous H/P or p: No Changes Eyes: No Pain, No Vision change, No Conjunctivae inflammation, No Eyelid inflammation, No Other, No Redness ENT: No Ear pain, No Ear discharge, No Nose pain, No Nose discharge, No Nose congestion, No Mouth pain, No Mouth swelling, No Throat pain, No Throat swelling, No Other Cardiovascular: No Chest Pain, No Palpitations, No Orthopnea, No Paroxysmal Noc. Dyspnea, No Edema, No Lt Headedness, No Other Respiratory: No Cough, No Dry; Shortness of breath; No SOB with excertion, No Wheezing, No Hemoptysis, No Pleuritic Pain, No Sputum, No Other Gastrointestinal: No Nausea, No Vomiting, No Abdominal Pain, No Diarrhea, No Constipation, No Melena, No Hematochezia, No Other Genitourinary: No Dysuria, No Frequency, No Incontinence, No Hematuria, No Retention, No Other Musculoskeletal: No other, No neck pain, No shoulder pain, No arm pain, No back pain, No hand pain, No leg pain, No foot pain Skin: No Rash, No Lesions, No Jaundice, No Bruising, No Other Objective Vitals Vital Signs Date Time Temp Pulse Resp B/P (MAP) Pulse Ox O2 Delivery O2 Flow Rate FiO2 03/13/25 22:18 85 16 100 03/13/25 22:08 Nasal Cannula 1.0 03/13/25 22:08 24 03/13/25 21:00 97.8 138/82 (100) 97.8 Intake/Output Intake and Output 03/13/25 07:00 Intake Total 2750 ml Balance 2750 ml Intake Oral 2650 ml IV Total 100 ml # Voids 7 Exam Gen.: Patient lying in bed in no apparent distress. On supplemental oxygen. Head: Normocephalic, atraumatic. Eyes: EOMI/PERRLA. Ears: Normal hearing. Normal anatomy. Neck/trachea: Trachea midline, supple. Nose: Normal external anatomy. Mouth: Moist mucous membranes. Chest: Decreased air entry bilaterally. No wheezing or rhonchi. Cardiovascular: Positive S1, positive S2. Regular rate and rhythm. Abdomen: Positive bowel sounds in all 4 quadrants. Soft, non-tender, non- distended. : Deferred. Rectal: Deferred. Skin: Warm, dry. Intact. Extremities: 2+ radial pulses bilaterally. No lower extremity edema. Neuro: Awake, alert, oriented x3. No gross motor or sensory deficits. Cranial nerves II through XII intact. Gait not assessed. Medications Current Medications Medications Dose Ordered Sig/Aren Route Start Time Stop Time Status Last Admin Dose Admin Sodium Chloride 10 ml Q8HR IV 03/10/25 14:00 03/13/25 22:11 10 ML Acetaminophen/ Hydrocodone Bitart 1 tab Q4HP PRN PO 03/10/25 08:30 Ondansetron HCl 4 mg Q4HP PRN IV 03/10/25 08:30 03/13/25 10:26 4 MG Docusate Sodium 100 mg BIDPRN PRN PO 03/10/25 08:30 Enoxaparin Sodium 40 mg DAILY SC 03/10/25 10:00 03/13/25 09:07 40 MG Acetaminophen 650 mg Q6HP PRN PO 03/10/25 08:30 Nitroglycerin 0.4 mg Q5MINP PRN SL 03/10/25 08:30 Morphine Sulfate 2 mg Q30M PRN IV 03/10/25 09:45 Amlodipine Besylate 10 mg DAILY PO 03/10/25 10:00 03/13/25 09:10 10 MG Hydroxyzine Pamoate 50 mg TIDP PRN PO 03/10/25 10:00 03/13/25 22:08 25 MG Prednisone 20 mg BID PO 03/10/25 10:00 03/13/25 22:08 20 MG Loratadine 10 mg DAILY PO 03/10/25 10:00 03/13/25 09:06 10 MG Ceftriaxone Sodium 50 ml @ 100 mls/hr DAILY@09 IV 03/12/25 09:00 03/13/25 08:56 100 MLS/HR Azithromycin 250 ml @ 125 mls/hr DAILY IV 03/12/25 10:00 03/13/25 10:26 125 MLS/HR Montelukast Sodium 10 mg HS PO 03/11/25 22:00 03/13/25 22:08 10 MG Budesonide 0.5 mg BID NEB 03/11/25 22:00 03/13/25 22:08 0.5 MG Albuterol 2.5 mg Q4H NEB 03/13/25 09:30 03/13/25 22:08 2.5 MG Ipratropium [place] 0.5 mg Q4H NEB 03/13/25 09:30 03/13/25 22:08 0.5 MG Laboratory Results Laboratory Tests 03/11/25 05:27 Assessment/Plan Assessment/Plan Impression: Acute hypoxic respiratory failure Mast cell activation (syndrome) Pulmonary edema Seasonal allergies Hiatal hernia Morbid obesity Snoring Events: Remains on supplemental oxygen, 1 LPM NC Taper O2 as tolerated Continue bronchodilators q.4 hours Pulmicort BID Continue IV steroids Continue antibiotics Continue Singulair/Claritin for allergies Incentive spirometry Monitor renal function. Maintain euvolemia Monitor electrolytes. Supplement as necessary. Monitor ins and outs. Refer as outpatient to Allergy/Immunology Labs and imaging reviewed. Rest of plan as noted below. Plan: Supplemental oxygen Titrate to keep O2 sats above 92%. Chest x-ray reviewed, shows no acute opacities. Continue bronchodilators. INH Albuterol HFA and ipratropium Flovent BID On Singulair q.h.s and Claritin for allergies Continue antibiotics Continue steroids Incentive spirometry Monitor renal function. Monitor electrolytes. Supplement as necessary. Monitor ins and outs. Refer patient to Allergy and Immunology for evaluation (Dr. Monsalve) Refer to sleep specialist for evaluation of KARYN. Recommend diet and lifestyle modifications for weight reduction Obesity complicates all care DVT prophylaxis. Prognosis: Guarded given patient's multiple co-morbidities. Rest of plan per hospitalist and other consultants. Thank you, ZIA Mccurdy, for allowing me to participate in this patient's care. Further recommendations will depend on the patient's clinical course. Please do not hesitate to contact me if you have any questions or concerns. This medical document was created using an electronic medical record system with [employer] dictation system. Although these documentations are being carefully reviewed, there may still be some phonetic and typographical changes. The errors are purely typographical, due to imperfection on the software program, and do not reflect any compromise in the patient's medical care. Plan discussed with: Patient, Other (RN Don) Visit Coding Pulmonary Billing Provider: DEA SANCHEZ MD Date of Service if different f: Mar 13, 2025 Common Visit Codes: [id number] INP/OBS CARE(HIGH) DEA SANCHEZ MD Mar 13, 2025 23:42
[2025-03-14] VITALS (20 sets, daily range): BP systolic 126–139; BP diastolic 69–90; PULSE 77–97; RESP 15–18; TEMP 96.9–99; O2SAT 92–100
[2025-03-14] MEDS: ALBUTEROL SULF 2.5 MG/0.5ML(0.5%) NEB SOLN NEB SCH (07:05)
[2025-03-14] MEDS: IPRATROPIUM BROM 0.5 MG/2.5ML INH SOL NEB SCH (07:06)
--- NOTE | 2025-03-14 08:33 | DVHPN2 ---
Reviewed: Care Plan Changes from previous H/P or p: No Changes Eyes: No Pain, No Vision change, No Conjunctivae inflammation, No Eyelid inflammation, No Other, No Redness ENT: No Ear pain, No Ear discharge, No Nose pain, No Nose discharge, No Nose congestion, No Mouth pain, No Mouth swelling, No Throat pain, No Throat swelling, No Other Cardiovascular: No Chest Pain, No Palpitations, No Orthopnea, No Paroxysmal Noc. Dyspnea, No Edema, No Lt Headedness, No Other Respiratory: No Cough, No Dry; Shortness of breath; No SOB with excertion, No Wheezing, No Hemoptysis, No Pleuritic Pain, No Sputum, No Other Gastrointestinal: No Nausea, No Vomiting, No Abdominal Pain, No Diarrhea, No Constipation, No Melena, No Hematochezia, No Other Genitourinary: No Dysuria, No Frequency, No Incontinence, No Hematuria, No Retention, No Other Musculoskeletal: No other, No neck pain, No shoulder pain, No arm pain, No back pain, No hand pain, No leg pain, No foot pain Skin: No Rash, No Lesions, No Jaundice, No Bruising, No Other Objective Vitals Vital Signs Date Time Temp Pulse Resp B/P (MAP) Pulse Ox O2 Delivery O2 Flow Rate FiO2 03/14/25 07:50 88 18 96 Room Air* 0 21 03/14/25 05:00 96.9 137/86 (103) 96.9 Intake/Output Intake and Output 03/14/25 07:00 Intake Total 1250 ml Balance 1250 ml Intake Oral 1200 ml IV Total 50 ml # Voids 13 Medications Current Medications Medications Dose Ordered Sig/Aren Route Start Time Stop Time Status Last Admin Dose Admin Sodium Chloride 10 ml Q8HR IV 03/10/25 14:00 03/14/25 05:52 10 ML Acetaminophen/ Hydrocodone Bitart 1 tab Q4HP PRN PO 03/10/25 08:30 Ondansetron HCl 4 mg Q4HP PRN IV 03/10/25 08:30 03/13/25 10:26 4 MG Docusate Sodium 100 mg BIDPRN PRN PO 03/10/25 08:30 Enoxaparin Sodium 40 mg DAILY SC 03/10/25 10:00 03/13/25 09:07 40 MG Acetaminophen 650 mg Q6HP PRN PO 03/10/25 08:30 Nitroglycerin 0.4 mg Q5MINP PRN SL 03/10/25 08:30 Morphine Sulfate 2 mg Q30M PRN IV 03/10/25 09:45 Amlodipine Besylate 10 mg DAILY PO 03/10/25 10:00 03/13/25 09:10 10 MG Hydroxyzine Pamoate 50 mg TIDP PRN PO 03/10/25 10:00 03/14/25 05:50 25 MG Prednisone 20 mg BID PO 03/10/25 10:00 03/13/25 22:08 20 MG Loratadine 10 mg DAILY PO 03/10/25 10:00 03/13/25 09:06 10 MG Ceftriaxone Sodium 50 ml @ 100 mls/hr DAILY@09 IV 03/12/25 09:00 03/13/25 08:56 100 MLS/HR Azithromycin 250 ml @ 125 mls/hr DAILY IV 03/12/25 10:00 03/13/25 10:26 125 MLS/HR Montelukast Sodium 10 mg HS PO 03/11/25 22:00 03/13/25 22:08 10 MG Budesonide 0.5 mg BID NEB 03/11/25 22:00 03/14/25 07:05 0.5 MG Albuterol 2.5 mg Q4H NEB 03/14/25 06:00 03/14/25 07:05 2.5 MG Ipratropium [place] 0.5 mg Q4H NEB 03/14/25 06:00 03/14/25 07:06 0.5 MG Laboratory Results Laboratory Tests 03/11/25 05:27 Labs and/or images reviewed: Labs reviewed by me, Image(s) reviewed by me Assessment/Plan Assessment/Plan Sepsis possibly secondary to community-acquired pneumonia Rocephin azithromycin, consult for Dr. Saucedo appreciated Acute hypoxic respiratory failure, oxygen by nasal cannula Asthma exacerbation, albuterol Atrovent q.4 hours Solu-Medrol Mast cell activation syndrome History of intubation Morbid obesity, Time spent 50 minutes RN Maxx at bedside Patient needs PCP in [facility] Medical group: Social service consult placed. Plan discussed with: Patient My Orders Orders - NAEEM ORO MD Procedure Category Date Status Time Albuterol Medneb PHA 03/14/25 In Process (Ventolin Medneb) 06:00 Ipratropium Medneb PHA 03/14/25 In Process (Atrovent Medneb) 06:00 Date of Service: Mar 14, 2025 Billing Provider: NAEEM ORO MD Common Visit Codes: [id number] INP/OBS CARE(HIGH) NAEEM ORO MD Mar 14, 2025 08:33
--- NOTE | 2025-03-14 12:42 | DVH ---
CHEST RADIOGRAPH INDICATION: Asthma exacerbation TECHNIQUE: Single frontal view of the chest was obtained COMPARISON: XY CHEST PORTABLE on DOS: 03/10/25, XY CHEST XRAY 1 VIEW on DOS: 12/14/24, XY CHEST XRAY 1 VIEW on DOS: 12/13/24, XY CHEST XRAY 1 VIEW on DOS: 12/12/24, XY CHEST XRAY 1 VIEW on DOS: 12/08/24 FINDINGS: Lines and Tubes: None Lungs: No focal consolidation. Pleura: No effusion. No pneumothorax. Cardiomediastinal contours: Unremarkable Bones: No acute osseous abnormality. IMPRESSION: 1. No acute cardiopulmonary disease.
--- NOTE | 2025-03-14 23:54 | DVHPN2 ---
Subjective DOS: 03/14/2025 Patient seen and examined at bedside. Remains on supplemental oxygen Overnight events reviewed. Reviewed: Care Plan Changes from previous H/P or p: No Changes Eyes: No Pain, No Vision change, No Conjunctivae inflammation, No Eyelid inflammation, No Other, No Redness ENT: No Ear pain, No Ear discharge, No Nose pain, No Nose discharge, No Nose congestion, No Mouth pain, No Mouth swelling, No Throat pain, No Throat swelling, No Other Cardiovascular: No Chest Pain, No Palpitations, No Orthopnea, No Paroxysmal Noc. Dyspnea, No Edema, No Lt Headedness, No Other Respiratory: No Cough, No Dry; Shortness of breath; No SOB with excertion, No Wheezing, No Hemoptysis, No Pleuritic Pain, No Sputum, No Other Gastrointestinal: No Nausea, No Vomiting, No Abdominal Pain, No Diarrhea, No Constipation, No Melena, No Hematochezia, No Other Genitourinary: No Dysuria, No Frequency, No Incontinence, No Hematuria, No Retention, No Other Musculoskeletal: No other, No neck pain, No shoulder pain, No arm pain, No back pain, No hand pain, No leg pain, No foot pain Skin: No Rash, No Lesions, No Jaundice, No Bruising, No Other Objective Vitals Vital Signs Date Time Temp Pulse Resp B/P (MAP) Pulse Ox O2 Delivery O2 Flow Rate FiO2 03/14/25 22:16 77 18 98 03/14/25 22:10 Nasal Cannula* 1 24 03/14/25 21:00 97.7 126/69 (88) 97.7 Intake/Output Intake and Output 03/14/25 07:00 Intake Total 1250 ml Balance 1250 ml Intake Oral 1200 ml IV Total 50 ml # Voids 13 Exam Gen.: Patient lying in bed in no apparent distress. On supplemental oxygen. Head: Normocephalic, atraumatic. Eyes: EOMI/PERRLA. Ears: Normal hearing. Normal anatomy. Neck/trachea: Trachea midline, supple. Nose: Normal external anatomy. Mouth: Moist mucous membranes. Chest: Decreased air entry bilaterally. No wheezing or rhonchi. Cardiovascular: Positive S1, positive S2. Regular rate and rhythm. Abdomen: Positive bowel sounds in all 4 quadrants. Soft, non-tender, non- distended. : Deferred. Rectal: Deferred. Skin: Warm, dry. Intact. Extremities: 2+ radial pulses bilaterally. No lower extremity edema. Neuro: Awake, alert, oriented x3. No gross motor or sensory deficits. Cranial nerves II through XII intact. Gait not assessed. Medications Current Medications Medications Dose Ordered Sig/Aren Route Start Time Stop Time Status Last Admin Dose Admin Sodium Chloride 10 ml Q8HR IV 03/10/25 14:00 03/14/25 22:04 10 ML Acetaminophen/ Hydrocodone Bitart 1 tab Q4HP PRN PO 03/10/25 08:30 Ondansetron HCl 4 mg Q4HP PRN IV 03/10/25 08:30 03/14/25 10:06 4 MG Docusate Sodium 100 mg BIDPRN PRN PO 03/10/25 08:30 Enoxaparin Sodium 40 mg DAILY SC 03/10/25 10:00 03/14/25 09:01 40 MG Acetaminophen 650 mg Q6HP PRN PO 03/10/25 08:30 Nitroglycerin 0.4 mg Q5MINP PRN SL 03/10/25 08:30 Morphine Sulfate 2 mg Q30M PRN IV 03/10/25 09:45 Amlodipine Besylate 10 mg DAILY PO 03/10/25 10:00 03/14/25 09:00 10 MG Hydroxyzine Pamoate 50 mg TIDP PRN PO 03/10/25 10:00 03/14/25 05:50 25 MG Prednisone 20 mg BID PO 03/10/25 10:00 03/14/25 22:03 20 MG Loratadine 10 mg DAILY PO 03/10/25 10:00 03/14/25 09:00 10 MG Ceftriaxone Sodium 50 ml @ 100 mls/hr DAILY@09 IV 03/12/25 09:00 03/14/25 08:51 100 MLS/HR Azithromycin 250 ml @ 125 mls/hr DAILY IV 03/12/25 10:00 03/14/25 10:02 125 MLS/HR Montelukast Sodium 10 mg HS PO 03/11/25 22:00 03/14/25 22:03 10 MG Budesonide 0.5 mg BID NEB 03/11/25 22:00 03/14/25 18:17 0.5 MG Albuterol 2.5 mg Q4H NEB 03/14/25 06:00 03/14/25 22:12 2.5 MG Ipratropium [place] 0.5 mg Q4H NEB 03/14/25 06:00 03/14/25 22:12 0.5 MG Laboratory Results Laboratory Tests 03/11/25 05:27 Assessment/Plan Assessment/Plan Impression: Acute hypoxic respiratory failure Mast cell activation (syndrome) Pulmonary edema Seasonal allergies Hiatal hernia Morbid obesity Snoring Events: Remains on supplemental oxygen, 1 LPM NC Taper O2 as tolerated Continue bronchodilators q.4 hours Pulmicort BID Continue IV steroids Continue antibiotics Continue Singulair/Claritin for allergies Incentive spirometry Monitor renal function. Maintain euvolemia Monitor electrolytes. Supplement as necessary. Monitor ins and outs. Refer as outpatient to Allergy/Immunology Labs and imaging reviewed. Rest of plan as noted below. Plan: Supplemental oxygen Titrate to keep O2 sats above 92%. Chest x-ray reviewed, shows no acute opacities. Continue bronchodilators. INH Albuterol HFA and ipratropium Flovent BID On Singulair q.h.s and Claritin for allergies Continue antibiotics Continue steroids Incentive spirometry Monitor renal function. Monitor electrolytes. Supplement as necessary. Monitor ins and outs. Refer patient to Allergy and Immunology for evaluation (Dr. Monsalve) Refer to sleep specialist for evaluation of KARYN. Recommend diet and lifestyle modifications for weight reduction Obesity complicates all care DVT prophylaxis. Prognosis: Guarded given patient's multiple co-morbidities. Rest of plan per hospitalist and other consultants. Thank you, ZIA Mccurdy, for allowing me to participate in this patient's care. Further recommendations will depend on the patient's clinical course. Please do not hesitate to contact me if you have any questions or concerns. This medical document was created using an electronic medical record system with [employer] dictation system. Although these documentations are being carefully reviewed, there may still be some phonetic and typographical changes. The errors are purely typographical, due to imperfection on the software program, and do not reflect any compromise in the patient's medical care. Plan discussed with: Other (DAVID Lilly) Visit Coding Pulmonary Billing Provider: DEA SANCHEZ MD Date of Service if different f: Mar 14, 2025 Common Visit Codes: [id number] INP/OBS CARE(HIGH) DEA SANCHEZ MD Mar 14, 2025 23:54
[2025-03-15] VITALS (12 sets, daily range): BP systolic 135–147; BP diastolic 80–94; PULSE 73–94; RESP 16–22; TEMP 36.8; O2SAT 94–100
[2025-03-15] MEDS ORDERED: AZIT500T66 PO (08:29)
[2025-03-15] MEDS ORDERED: PRED20TA2 PO (08:29)
--- NOTE | 2025-03-15 08:32 | DVHPN2 ---
Reviewed: Care Plan Changes from previous H/P or p: No Changes Eyes: No Pain, No Vision change, No Conjunctivae inflammation, No Eyelid inflammation, No Other, No Redness ENT: No Ear pain, No Ear discharge, No Nose pain, No Nose discharge, No Nose congestion, No Mouth pain, No Mouth swelling, No Throat pain, No Throat swelling, No Other Cardiovascular: No Chest Pain, No Palpitations, No Orthopnea, No Paroxysmal Noc. Dyspnea, No Edema, No Lt Headedness, No Other Respiratory: No Cough, No Dry; Shortness of breath; No SOB with excertion, No Wheezing, No Hemoptysis, No Pleuritic Pain, No Sputum, No Other Gastrointestinal: No Nausea, No Vomiting, No Abdominal Pain, No Diarrhea, No Constipation, No Melena, No Hematochezia, No Other Genitourinary: No Dysuria, No Frequency, No Incontinence, No Hematuria, No Retention, No Other Musculoskeletal: No other, No neck pain, No shoulder pain, No arm pain, No back pain, No hand pain, No leg pain, No foot pain Skin: No Rash, No Lesions, No Jaundice, No Bruising, No Other Objective Vitals Vital Signs Date Time Temp Pulse Resp B/P (MAP) Pulse Ox O2 Delivery O2 Flow Rate FiO2 03/15/25 06:42 86 18 98 03/15/25 06:35 Room Air 0.0 03/15/25 06:35 21 03/15/25 05:00 98.0 135/80 (98) 98.0 Intake/Output Intake and Output 03/15/25 07:00 Intake Total 780 ml Balance 780 ml Intake Oral 780 ml # Voids 9 Medications Current Medications Medications Dose Ordered Sig/Aren Route Start Time Stop Time Status Last Admin Dose Admin Sodium Chloride 10 ml Q8HR IV 03/10/25 14:00 03/15/25 05:56 10 ML Acetaminophen/ Hydrocodone Bitart 1 tab Q4HP PRN PO 03/10/25 08:30 Ondansetron HCl 4 mg Q4HP PRN IV 03/10/25 08:30 03/14/25 10:06 4 MG Docusate Sodium 100 mg BIDPRN PRN PO 03/10/25 08:30 Enoxaparin Sodium 40 mg DAILY SC 03/10/25 10:00 03/14/25 09:01 40 MG Acetaminophen 650 mg Q6HP PRN PO 03/10/25 08:30 Nitroglycerin 0.4 mg Q5MINP PRN SL 03/10/25 08:30 Morphine Sulfate 2 mg Q30M PRN IV 03/10/25 09:45 Amlodipine Besylate 10 mg DAILY PO 03/10/25 10:00 03/14/25 09:00 10 MG Hydroxyzine Pamoate 50 mg TIDP PRN PO 03/10/25 10:00 03/14/25 05:50 25 MG Prednisone 20 mg BID PO 03/10/25 10:00 03/14/25 22:03 20 MG Loratadine 10 mg DAILY PO 03/10/25 10:00 03/14/25 09:00 10 MG Ceftriaxone Sodium 50 ml @ 100 mls/hr DAILY@09 IV 03/12/25 09:00 03/14/25 08:51 100 MLS/HR Azithromycin 250 ml @ 125 mls/hr DAILY IV 03/12/25 10:00 03/14/25 10:02 125 MLS/HR Montelukast Sodium 10 mg HS PO 03/11/25 22:00 03/14/25 22:03 10 MG Budesonide 0.5 mg BID NEB 03/11/25 22:00 03/15/25 06:35 0.5 MG Albuterol 2.5 mg Q4H NEB 03/14/25 06:00 03/15/25 06:35 2.5 MG Ipratropium [place] 0.5 mg Q4H NEB 03/14/25 06:00 03/15/25 02:47 0.5 MG Laboratory Results Laboratory Tests 03/11/25 05:27 Labs and/or images reviewed: Labs reviewed by me, Image(s) reviewed by me Assessment/Plan Assessment/Plan Sepsis possibly secondary to community-acquired pneumonia Rocephin azithromycin, consult for Dr. Saucedo appreciated Acute hypoxic respiratory failure, oxygen by nasal cannula Asthma exacerbation, albuterol Atrovent q.4 hours Solu-Medrol Mast cell activation syndrome History of intubation Morbid obesity, RN Rina at bed side Patient on room air afebrile comfortable Patient is willing to go home today Plan discussed with: Patient My Orders Orders - NAEEM ORO MD Procedure Category Date Status Time Chest Xray 1 View XY 12/14/25 Resulted 08:34 * Encoding Machine Operator CONS 12/14/25 Transmitted Consult Date of Service: Mar 15, 2025 Billing Provider: NAEEM ORO MD Common Visit Codes: [id number] INP/OBS CARE(HIGH) NAEEM ORO MD Mar 15, 2025 08:32
--- NOTE | 2025-03-15 08:35 | DVHDS2 ---
Discharge Summary Date of Admission Mar 10, 2025 at 08:19 Date of Discharge: Mar 15, 2025 Admitting Diagnosis Shortness of breath Wounds: None Labs/Diagnostic Data: Laboratory Results Test 03/11/25 05:27 03/10/25 07:00 03/10/25 06:42 03/10/25 04:20 White Blood Count 13.1 10^3/uL (4.4-10.8) Red Blood Count 4.77 10^6/uL (4.0-5.20) Hemoglobin 14.6 g/dL (12.2-16.2) Hematocrit 44.4 % (36.0-46.0) Mean Corpuscular Volume 93.2 fL (80.0-100.0) Mean Corpuscular Hemoglobin 30.6 pg (28.0-32.0) Mean Corpuscular Hemoglobin Concent 32.9 g/dL (32.0-36.0) Red Cell Distribution Width 13.7 % (11.8-14.3) Platelet Count 198 10^3/uL (140-450) Mean Platelet Volume 8.4 fL (6.9-10.8) Neutrophils (%) (Auto) 89.5 % (37.0-80.0) Lymphocytes (%) (Auto) 5.6 % (10.0-50.0) Monocytes (%) (Auto) 4.8 % (0.0-12.0) Eosinophils (%) (Auto) 0.0 % (0.0-7.0) Basophils (%) (Auto) 0.1 % (0.0-2.0) Neutrophils # (Auto) 11.7 10 ^3/uL (1.6-8.6) Lymphocytes # (Auto) 0.7 10 ^3/uL (0.4-5.4) Monocytes # (Auto) 0.6 10 ^3/uL (0-1.3) Eosinophils # (Auto) 0 10 ^3/uL (0-0.8) Basophils # (Auto) 0 10 ^3/uL (0-0.2) Nucleated Red Blood Cells 0.1 % Sodium Level 142 mmol/L (136-145) Potassium Level 4.4 mmol/L (3.5-5.1) Chloride Level 106 mmol/L (98-107) Carbon Dioxide Level 24 mmol/L (20-31) Anion Gap 12 (5-15) Blood Urea Nitrogen 16 mg/dL (9-23) Creatinine 0.99 mg/dL (0.550-1.02) Glomerular Filtration Rate Calc 69 mL/min (>90) BUN/Creatinine Ratio 16.2 (10.0-20.0) Serum Glucose 117 mg/dL (74-106) Calcium Level 9.7 mg/dL (8.7-10.4) Total Bilirubin 0.5 mg/dL (0.2-1.0) Aspartate Amino Transferase (AST) 34 U/L (13-40) Alanine Aminotransferase (ALT) 67 U/L (7-40) Alkaline Phosphatase 58 U/L (46-116) Total Protein 6.4 g/dL (5.7-8.2) Albumin 4.2 g/dL (3.2-4.8) Blood Gas Specimen Type Arterial Blood Gas Sample Site Left radial Blood Gas Patient Temperature 37.0 Arterial Blood Date Drawn Arterial Blood pH 7.346 (7.350-7.450) Arterial Blood Partial Pressure CO2 33.8 mmHg (32.0-45.0) Arterial Blood Partial Pressure O2 214.2 mmHg (83.0-108.0) Arterial Blood HCO3 18.1 mmol/L (21.0-28.0) Arterial Blood Oxygen Saturation 99.8 % (94.0-98.0) Arterial Blood Base Excess -6.5 mmol/L (-2.0-3.0) Arterial Blood Oxyhemoglobin 97.9 % (94.0-98.0) Arterial Blood Carboxyhemoglobin 1.2 % (0.5-1.5) Arterial Blood Methemoglobin 0.7 % (0.0-1.5) Arterial Blood Deoxyhemoglobin 0.2 % (0.0-5.0) Ranjith Test Modified Blood Gas Total Hemoglobin 15.60 g/dL (12.0-16.0) Blood Gas Set Respiration Rate 14.0 Blood Gas Modality Mask - bipap Blood Gas Spontaneous Rate 15 FiO2 % 50.0 Blood Gas Spontaneous Tidal Volume 934 Blood Gas EPAP 5 Blood Gas IPAP 12 Troponin I High Sensitivity 21 ng/L (</=34) Thyroid Stimulating Hormone (TSH) 1.02 uIU/mL (0.55-4.78) Blood Gas Critical Value Read Back yes Blood Gas Notified Whom md blanca sanchez Blood Gas Notified Time [id number] Blood Gas Notified By [employer] work supervisor devin lopez Test 03/10/25 03:48 B-Type Natriuretic Peptide 15.17 pg/mL (0-100) Other Laboratory Tests 03/11/25 05:27 Brief Hx & Hospital Course: 49-year-old female with a history of asthma 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 Asthma exacerbation treated with albuterol Atrovent Solu-Medrol and Pulmicort seen by pulmonology Dr. Saucedo at the time of discharge patient on room air afebrile and willing to go home. Prescription for azithromycin and prednisone transmitted to [facility]. She will follow up with her primary Dr and Dr. Saucedo Consults/Reason for consult Pulmonology Dr. Saucedo Operations or Procedures None Condition at Discharge: Fair Final Diagnosis/Problems List Sepsis possibly secondary to community-acquired pneumonia Rocephin azithromycin, consult for Dr. 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 Saucedo Continue to use med neb Medications: Azithromycin Prednisone Transmitted to [facility] Scheduled Amlodipine Besylate (Amlodipine Besylate), 1 TAB PO DAILY, (Reported) Azithromycin (Azithromycin), 1 TAB PO DAILY Prednisone (Prednisone), 30 MG PO BID, (Reported) Prednisone (Prednisone), 20 MG PO DAILY Scheduled PRN Hydroxyzine HCl (Hydroxyzine Hydrochloride), 1 TAB PO TIDP PRN, (Reported) 39 (Time taken for discharge summary 39 minutes) Discharge Statement: "Patient was advised to return to the ER or call 911 if any headaches, dizziness, shortness of breath, chest pain, abdominal pain, bleeding, fevers, or worsening of medical condition. Patient was counseled about treatment plan, medications, possible side effects, patientverbalized understanding. All questions were answered to the best of my ability. This discharge took greater then 30 minutes in planning, reviewing documentation, counseling the patient, and discussing with other team members." ASSESSMENT ASSESSMENT Hospital Course Improved Assessment Sepsis possibly secondary to community-acquired pneumonia Rocephin azithromycin, consult for Dr. 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
--- NOTE | 2025-03-15 14:25 | MEDREC ---
DV ASP Intervention Section I Assessment of apprpriate abx f: Community acquired PNA (Patient has completed 5 days of azithromycin therapy for CAP. IDSA guidelines recommend a 5-day course for most cases, provided the patient is clinically stable (afebrile for =48 hours, improving symptoms, and no complications). Prolonging therapy beyond this duration offers no additional benefit and may increase risk of adverse effects and antimicrobial resistance. Please consider d/c azithromycin if the patient meets stability criteria.) KYLEIGH OSHEA [facility] RESIDENT Mar 15, 2025 14:25
--- NOTE | 2025-03-15 21:52 | DVHPN2 ---
Subjective DOS: 03/15/2025 Patient seen and examined at bedside. Remains on supplemental oxygen Overnight events reviewed. Reviewed: Care Plan Changes from previous H/P or p: No Changes Eyes: No Pain, No Vision change, No Conjunctivae inflammation, No Eyelid inflammation, No Other, No Redness ENT: No Ear pain, No Ear discharge, No Nose pain, No Nose discharge, No Nose congestion, No Mouth pain, No Mouth swelling, No Throat pain, No Throat swelling, No Other Cardiovascular: No Chest Pain, No Palpitations, No Orthopnea, No Paroxysmal Noc. Dyspnea, No Edema, No Lt Headedness, No Other Respiratory: No Cough, No Dry; Shortness of breath; No SOB with excertion, No Wheezing, No Hemoptysis, No Pleuritic Pain, No Sputum, No Other Gastrointestinal: No Nausea, No Vomiting, No Abdominal Pain, No Diarrhea, No Constipation, No Melena, No Hematochezia, No Other Genitourinary: No Dysuria, No Frequency, No Incontinence, No Hematuria, No Retention, No Other Musculoskeletal: No other, No neck pain, No shoulder pain, No arm pain, No back pain, No hand pain, No leg pain, No foot pain Skin: No Rash, No Lesions, No Jaundice, No Bruising, No Other Objective Vitals Vital Signs Date Time Temp Pulse Resp B/P (MAP) Pulse Ox O2 Delivery O2 Flow Rate FiO2 03/15/25 13:20 88 18 100 03/15/25 12:56 147/94 (111) 03/15/25 11:22 36.8 03/15/25 08:00 Nasal Cannula* 1 24 Intake/Output Intake and Output 03/15/25 07:00 Intake Total 780 ml Balance 780 ml Intake Oral 780 ml # Voids 9 Exam Gen.: Patient lying in bed in no apparent distress. On supplemental oxygen. Head: Normocephalic, atraumatic. Eyes: EOMI/PERRLA. Ears: Normal hearing. Normal anatomy. Neck/trachea: Trachea midline, supple. Nose: Normal external anatomy. Mouth: Moist mucous membranes. Chest: Decreased air entry bilaterally. No wheezing or rhonchi. Cardiovascular: Positive S1, positive S2. Regular rate and rhythm. Abdomen: Positive bowel sounds in all 4 quadrants. Soft, non-tender, non- distended. : Deferred. Rectal: Deferred. Skin: Warm, dry. Intact. Extremities: 2+ radial pulses bilaterally. No lower extremity edema. Neuro: Awake, alert, oriented x3. No gross motor or sensory deficits. Cranial nerves II through XII intact. Gait not assessed. Laboratory Results Laboratory Tests 03/11/25 05:27 Assessment/Plan Assessment/Plan Impression: Acute hypoxic respiratory failure Mast cell activation (syndrome) Pulmonary edema Seasonal allergies Hiatal hernia Morbid obesity Snoring Events: Remains on supplemental oxygen, 1 LPM NC Taper O2 as tolerated Continue bronchodilators q.4 hours Pulmicort BID Continue IV steroids Continue antibiotics Continue Singulair/Claritin for allergies Incentive spirometry Monitor renal function. Maintain euvolemia Monitor electrolytes. Supplement as necessary. Monitor ins and outs. Refer as outpatient to Allergy/Immunology Patient is stable for discharge from the pulmonary standpoint. Disposition per hospitalist. Labs and imaging reviewed. Rest of plan as noted below. Plan: Supplemental oxygen Titrate to keep O2 sats above 92%. Chest x-ray reviewed, shows no acute opacities. Continue bronchodilators. INH Albuterol HFA and ipratropium Flovent BID On Singulair q.h.s and Claritin for allergies Continue antibiotics Continue steroids Incentive spirometry Monitor renal function. Monitor electrolytes. Supplement as necessary. Monitor ins and outs. Refer patient to Allergy and Immunology for evaluation (Dr. Monsalev) Refer to sleep specialist for evaluation of KARYN. Recommend diet and lifestyle modifications for weight reduction Obesity complicates all care DVT prophylaxis. Prognosis: Guarded given patient's multiple co-morbidities. Rest of plan per hospitalist and other consultants. Thank you, ZIA Mccurdy, for allowing me to participate in this patient's care. Further recommendations will depend on the patient's clinical course. Please do not hesitate to contact me if you have any questions or concerns. This medical document was created using an electronic medical record system with [employer] dictation system. Although these documentations are being carefully reviewed, there may still be some phonetic and typographical changes. The errors are purely typographical, due to imperfection on the software program, and do not reflect any compromise in the patient's medical care. Plan discussed with: Patient, Other (RN) Visit Coding Pulmonary Billing Provider: DEA SANCHEZ MD Date of Service if different f: Mar 15, 2025 Common Visit Codes: [id number] INP/OBS CARE(HIGH) DEA SANCHEZ MD Mar 15, 2025 21:52
== END 2025-03-15 13:40 | disposition home or self-care (01) | DRG 871 ==
LOC: ER 03:37 → EDBD 03:37 → OVERFLOW 08:19 → TELE-CENTR 22:23
PROVIDERS: ADMIT Family Medicine; ATTEND Family Medicine
PROC: 5A09357 Assistance with Respiratory Ventilation, Less than 24 Consecutive Hours, Continuous Positive Airway Pressure (ICD-10-PCS; principal; 2025-03-10)
DX: A41.9 Sepsis, unspecified organism (principal); J15.69 Pneumonia due to other Gram-negative bacteria; J96.01 Acute respiratory failure with hypoxia; J15.9 Unspecified bacterial pneumonia; D89.40 Mast cell activation, unspecified; J81.1 Chronic pulmonary edema; J45.901 Unspecified asthma with (acute) exacerbation; E66.01 Morbid (severe) obesity due to excess calories; Z68.41 Body mass index [BMI] 40.0-44.9, adult; E73.9 Lactose intolerance, unspecified; K44.9 Diaphragmatic hernia without obstruction or gangrene; Z80.3 Family history of malignant neoplasm of breast; Z80.49 Family history of malignant neoplasm of other genital organs; Z81.8 Family history of other mental and behavioral disorders; Z83.3 Family history of diabetes mellitus
CPT/HCPCS: 36415; 36600; 71045; 80053; 82805; 83880; 84443; 84484; 85025; 93005; 94640; 94660; 99291; G0378; J1100; J2405